=== PATIENT | male | born 1955 | race Caucasian/White ===

== ENCOUNTER 2017-01-16 19:45 | Inpatient (IN) | payer BC, OTHER ==
[2017-01-16] MEDS ORDERED: NITROGLYCERIN OINT 1 INCH/GM PACKET TOPICAL STA (19:51)
--- NOTE | 2017-01-16 19:55 | ED ---
General Adult HPI - General Stated complaint: Chest Pain Time Seen by Provider: 01/16/17 19:45 Source: RN notes reviewed - History of Present Illness Initial comments: This is a 61-year-old male who presents emergency Department complaining of having right-sided neck pain radiating down into his chest. Patient states he had this starting at 11:00 this morning. Patient states he was also short of breath very shaky and so weak that he couldn't get up by himself. Patient states he was given just ride it out but it continued to get worse so he had his friend call EMS. When EMS arrived the patient was somewhat cyanotic looking according to this EMS crew that brought him from [place]. He went to [place] had a workup done his troponin was elevated at 0.[address] his chest CT which was negative he was placed on heparin and brought to our emergency department. Patient states she's been chest pain-free ever since he got to [place] and he continues to be chest pain-free. Patient states she' s had episodes like this before but nothing this ever lasted nearly as long or nearly as strong as the pain was today. Patient denies any headache patient denies numbness weakness. Patient denies lightheadedness dizziness or near- syncopal episode. The recent fever chills or cough. Patient denies abdominal pain patient denies nausea or vomiting. - Related Data Home Medications Medication Instructions Recorded Confirmed Gabapentin [Neurontin] 100 mg PO HS 01/16/17 01/16/17 Tamsulosin [Flomax] 0.4 mg PO HS 01/16/17 01/16/17 Allergies Allergy/AdvReac Type Severity Reaction Status Date / Time No Known Allergies Allergy Verified 11/20/14 09:41 Review of Systems ROS Statement: Those systems with pertinent positive or pertinent negative responses have been documented in the HPI. ROS Other: All systems not noted in ROS Statement are negative. Past Medical History Past Medical History: Hyperlipidemia, Hypertension, Skin Disorder Additional Past Medical History / Comment(s): PT IS POOR HISTORIAN-PT STATES HAS SOME BLOCKAGES IN [place]. LEGS & RT NECK- STATES FEET ARE ALWAYS ICE COLD- RT GREAT TOE HAS HOLE -DRAINING WAS TOLD WAS A CALLUS & GIVEN CREAM- HELPED AT FIRST- RT FOOT SWOLLEN- HARD TO PUT SHOES ON. LOWER BACK PAIN ALSO. URINE FREQUENCY-UP 2-3 X A NIGHT. WAS ON 11 MEDICATIONS FRON IN [place]- BUT STOPPED USING THEM History of Any Multi-Drug Resistant Organisms: None Reported Past Surgical History: Tonsillectomy Additional Past Surgical History / Comment(s): ABDOMINAL SURGERY- REMOVED FISH BONE THAT HAD PUT HOLE IN STOMACH. REPAIR OF BLOCKAGES IN RT LEG 2011? Past Anesthesia/Blood Transfusion Reactions: No Reported Reaction Past Psychological History: No Psychological Hx Reported Smoking Status: Current every day smoker Past Alcohol Use History: None Reported Additional Past Alcohol Use History / Comment(s): NO ALCOHOL IN 20 YRS- USE TO BE A PROBLEM Past Drug Use History: None Reported - Past Family History Mother Family Medical History: Cancer Father Family Medical History: Myocardial Infarction ([place]) General Exam - General Exam Comments Initial Comments: GENERAL: Patient is well-developed and well-nourished. Patient is nontoxic and well- hydrated and is in no acute distress. ENT: Neck is soft and supple. No significant lymphadenopathy is noted. Oropharynx is clear. Moist mucous membranes. Neck has full range of motion without eliciting any pain. EYES: The sclera were anicteric and conjunctiva were pink and moist. Extraocular movements were intact and pupils were equal round and reactive to light. Eyelids were unremarkable. PULMONARY: Unlabored respirations. Good breath sounds bilaterally. No audible rales rhonchi or wheezing was noted. CARDIOVASCULAR: There is a regular rate and rhythm without any murmurs gallops or rubs. ABDOMEN: Soft and nontender with normal bowel sounds. No palpable organomegaly was noted. There is no palpable pulsatile mass. SKIN: Skin is clear with no lesions or rashes and otherwise unremarkable. NEUROLOGIC: Patient is alert and oriented x3. Cranial nerves II through XII are grossly intact. Motor and sensory are also intact. Normal speech, volume and content. Symmetrical smile. MUSCULOSKELETAL: Normal extremities with adequate strength and full range of motion. LYMPHATICS: No significant lymphadenopathy is noted PSYCHIATRIC: Normal psychiatric evaluation. Course Vital Signs 01/16/17 01/16/17 19:54 20:31 Temperature 98.2 F Pulse Rate 65 61 Respiratory 16 16 Rate Blood Pressure 142/85 135/83 O2 Sat by Pulse 98 98 Oximetry Medical Decision Making - Medical Decision Making EKG shows normal sinus rhythm at 65 bpm ND interval is 170 QRS is 126 QT intervals 4:30 QTC is 447. Patient's EKG shows Q waves in V1 24 as well as 2 and aVF. Patient has no old EKG to compare to Repeat troponin the patient was elevated above 5. Was at this point time I spoke with Dr. Kessler agreed that I should admit the patient and he will see the patient first thing in the morning unless the patient experiences some pain while in the hospital. Patient at this point time remains pain-free. I continued the heparin on the patient and admitted the patient to Dr. Bowser. Spoke with he agreed to accept the patient. - Lab Data Result diagrams: 01/16/17 20:30 01/16/17 20:30 Lab Results 01/16/17 01/16/17 01/16/17 Range/Units 20:30 20:30 20:30 WBC 7.1 (3.8-10.6) k/uL RBC 5.29 (4.30-5.90) m/uL Hgb 16.6 (13.0-17.5) gm/dL Hct 48.2 (39.0-53.0) % MCV 91.1 (80.0-100.0) fL MCH 31.4 (25.0-35.0) pg MCHC 34.5 (31.0-37.0) g/dL RDW 14.6 (11.5-15.5) % Plt Count 179 (150-450) k/uL Neutrophils % 56 % Lymphocytes % 33 % Monocytes % 7 % Eosinophils % 2 % Basophils % 1 % Neutrophils # 4.0 (1.3-7.7) k/uL Lymphocytes # 2.3 (1.0-4.8) k/uL Monocytes # 0.5 (0-1.0) k/uL Eosinophils # 0.1 (0-0.7) k/uL Basophils # 0.0 (0-0.2) k/uL PT (9.0-12.0) sec INR (<1.1) APTT (22.0-30.0) sec Sodium 139 (137-145) mmol/L Potassium 4.1 (3.5-5.1) mmol/L Chloride 103 (98-107) mmol/L Carbon Dioxide 26 (22-30) mmol/L Anion Gap 10 mmol/L BUN 21 H (9-20) mg/dL Creatinine 0.90 (0.66-1.25) mg/dL Est GFR (MDRD) Af Amer >60 (>60 ml/min/1.73 sqM) Est GFR (MDRD) Non-Af >60 (>60 ml/min/1.73 sqM) Glucose 85 (74-99) mg/dL Calcium 9.2 (8.4-10.2) mg/dL Magnesium 2.2 (1.6-2.3) mg/dL Total Bilirubin 1.1 (0.2-1.3) mg/dL AST 54 (17-59) U/L ALT 38 (21-72) U/L Alkaline Phosphatase 87 (38-126) U/L Total Creatine Kinase 270 H (55-170) U/L CK-MB (CK-2) 23.0 H* (0.0-2.4) ng/mL CK-MB (CK-2) Rel Index 8.5 Troponin I 5.780 H* (0.000-0.034) ng/mL Total Protein 7.1 (6.3-8.2) g/dL Albumin 4.2 (3.5-5.0) g/dL 01/16/17 Range/Units 20:30 WBC (3.8-10.6) k/uL RBC (4.30-5.90) m/uL Hgb (13.0-17.5) gm/dL Hct (39.0-53.0) % MCV (80.0-100.0) fL MCH (25.0-35.0) pg MCHC (31.0-37.0) g/dL RDW (11.5-15.5) % Plt Count (150-450) k/uL Neutrophils % % Lymphocytes % % Monocytes % % Eosinophils % % Basophils % % Neutrophils # (1.3-7.7) k/uL Lymphocytes # (1.0-4.8) k/uL Monocytes # (0-1.0) k/uL Eosinophils # (0-0.7) k/uL Basophils # (0-0.2) k/uL PT 10.8 (9.0-12.0) sec INR 1.1 (<1.1) APTT 33.3 H (22.0-30.0) sec Sodium (137-145) mmol/L Potassium (3.5-5.1) mmol/L Chloride (98-107) mmol/L Carbon Dioxide (22-30) mmol/L Anion Gap mmol/L BUN (9-20) mg/dL Creatinine (0.66-1.25) mg/dL Est GFR (MDRD) Af Amer (>60 ml/min/1.73 sqM) Est GFR (MDRD) Non-Af (>60 ml/min/1.73 sqM) Glucose (74-99) mg/dL Calcium (8.4-10.2) mg/dL Magnesium (1.6-2.3) mg/dL Total Bilirubin (0.2-1.3) mg/dL AST (17-59) U/L ALT (21-72) U/L Alkaline Phosphatase (38-126) U/L Total Creatine Kinase (55-170) U/L CK-MB (CK-2) (0.0-2.4) ng/mL CK-MB (CK-2) Rel Index Troponin I (0.000-0.034) ng/mL Total Protein (6.3-8.2) g/dL Albumin (3.5-5.0) g/dL Critical Care Time Critical Care Time: Yes Total Critical Care Time: 35 Disposition Clinical Impression: Non-STEMI (non-ST elevated myocardial infarction) Disposition: ADMITTED IP TO THIS [facility] Time of Disposition: 22:14
[2017-01-16 20:43] LABS: Basophils % (A) 1 %; CH 31.1; CHCM 34.3; Eosinophils # (A) 0.1 k/uL (0-0.7); Eosinophils % (A) 2 %; HCT 48.2 % (39.0-53.0); HDW 3.18; HGB 16.6 gm/dL (13.0-17.5); Luc # (Auto) 0.16; Luc % (Auto) 2; Lymphocytes # (A) 2.3 k/uL (1.0-4.8); Lymphocytes % (A) 33 %; MCH 31.4 pg (25.0-35.0); MCHC 34.5 g/dL (31.0-37.0); MCV 91.1 fL (80.0-100.0); Mean Platelet Volume 7.9; Monocytes # (A) 0.5 k/uL (0-1.0); Monocytes % (A) 7 %; Neutrophils % (A) 56 %; RBC 5.29 m/uL (4.30-5.90); RDW 14.6 % (11.5-15.5); WBC 7.1 k/uL (3.8-10.6); WBC (Perox) 6.98
[2017-01-16 20:51] LABS: INR 1.1 (<1.1); Partial Thromboplastin Time 33.3 sec (22.0-30.0); Prothrombin Time 10.8 sec (9.0-12.0)
[2017-01-16 20:56] LABS: ALT 38 U/L (21-72); AST 54 U/L (17-59); Alkaline Phosphatase 87 U/L (38-126); Anion Gap 10 mmol/L; Blood Urea Nitrogen 21 mg/dL (9-20); Calcium 9.2 mg/dL (8.4-10.2); Carbon Dioxide 26 mmol/L (22-30); Chloride 103 mmol/L (98-107); Glucose 85 mg/dL (74-99); Magnesium 2.2 mg/dL (1.6-2.3); Non-African American GFR(MDRD) >60 (>60 ml/min/1.73 sqM); Potassium 4.1 mmol/L (3.5-5.1); Sodium 139 mmol/L (137-145); Total Bilirubin 1.1 mg/dL (0.2-1.3); Total Protein 7.1 g/dL (6.3-8.2)
[2017-01-16] MEDS: HEPARIN SODIUM,PORCINE/D5W PMX 25,000 UNIT in DEXTROSE/WATER 1 500ML.BAG IV SCH (21:11)
[2017-01-16 21:25] LABS: Troponin I 5.78 ng/mL (0.000-0.034)
[2017-01-16] MEDS ORDERED: NITROGLYCERIN SL TABS 0.4 MG TAB SUBLINGUAL PRN (22:14)
[2017-01-16 23:26] VITALS: BMI 30.6
[2017-01-16] MEDS: NITROGLYCERIN OINT 1 INCH/GM PACKET TOPICAL SCH (23:39)
[2017-01-17 03:36] LABS: Creatine Kinase MB 21.5 ng/mL (0.0-2.4); Troponin I 5.73 ng/mL (0.000-0.034)
[2017-01-17] MEDS: HEPARIN SODIUM,PORCINE 5,000 UNIT/ML 1 ML VIAL IV PRN (03:36)
[2017-01-17] MEDS: NITROGLYCERIN OINT 1 INCH/GM PACKET TOPICAL SCH ×4 (05:56→23:01)
--- NOTE | 2017-01-17 09:12 | P.CRDCN ---
History of Present Illness Consult date: 01/17/17 Requesting physician: Na Bowser Consult reason: chest pain Chief complaint: Chest pain and shortness of breath History of present illness: This is a 61-year-old gentleman with history of hypertension, diabetes , hyperlipidemia, nicotine dependence, and strong family history of premature coronary artery disease, his father had a myocardial infarction at the age of 42 , diffuse vascular disease with prior vascular stenting, exact details unavailable, patient also has had a right carotid endarterectomy. Patient has a wound on the heel area of his right foot for which she has been going to the wound center. He was transferred here from [facility], patient was brought to [facility] by the EMS. Patient was complaining of anterior chest pressure and heaviness with radiation to his jaw and down his left arm, patient was weak, very diaphoretic and dusky in appearance. According to the patient everything was starting to go black, and he collapsed onto the floor. Blood pressure on arrival to [facility] was 134/96, heart rate 90, respirations 28, CT of the chest was performed which revealed a normal thoracic aorta with no dissection, mild noncalcific plaque, no PE. Sodium 136, potassium 3.7, chloride 101, CO2 22, BUN 24, creatinine 0.9. Magnesium level I.9, d-dimer normal troponin 0.32. White blood cell count 7.6, hemoglobin 17 0, hematocrit 49, platelet count 199. There is report of Daisha scan in the chart which was performed in 2014 reported to be normal. Initial EKG on presentation to [place] showed a normal sinus rhythm with ST-T wave changes. Patient was transferred here to [facility]. EKG on arrival here showed a normal sinus rhythm with evidence of anterior lateral infarction. White blood cell count 7.1, hemoglobin 16.6, platelet count 179. Potassium 4.1, BUN 21, creatinine 0.9. Troponin on arrival here 5.7, 5.7. Patient is currently on IV heparin, aspirin, and Nitropaste. At the time of my examination, he is currently chest pain-free. Blood pressure 142/80 with a heart rate in the 60s. 97% on 4 L oxygen. Past Medical History Past Medical History: CVA/TIA, Hyperlipidemia, Hypertension, Skin Disorder Additional Past Medical History / Comment(s): PT IS POOR HISTORIAN-PT STATES HAS SOME BLOCKAGES IN [place]. LEGS & RT NECK- STATES FEET ARE ALWAYS ICE COLD- RT GREAT TOE HAS HOLE -DRAINING WAS TOLD WAS A CALLUS & GIVEN CREAM- HELPED AT FIRST- RT FOOT SWOLLEN- HARD TO PUT SHOES ON. LOWER BACK PAIN ALSO. URINE FREQUENCY-UP 2-3 X A NIGHT. WAS ON 11 MEDICATIONS FRON IN [place]- BUT STOPPED USING THEM. PT also states he had a blockage removed from his carotid artery and that the hospital told him he had two strokes History of Any Multi-Drug Resistant Organisms: None Reported Past Surgical History: Tonsillectomy Additional Past Surgical History / Comment(s): ABDOMINAL SURGERY- REMOVED FISH BONE THAT HAD PUT HOLE IN STOMACH. REPAIR OF BLOCKAGES IN RT LEG 2011? Past Anesthesia/Blood Transfusion Reactions: No Reported Reaction Past Psychological History: No Psychological Hx Reported Smoking Status: Current every day smoker Past Alcohol Use History: None Reported Additional Past Alcohol Use History / Comment(s): NO ALCOHOL IN 20 YRS- USE TO BE A PROBLEM Past Drug Use History: None Reported - Past Family History Mother Family Medical History: Cancer Father Family Medical History: Myocardial Infarction ([place]) Medications and Allergies Home Medications Medication Instructions Recorded Confirmed Type Gabapentin [Neurontin] 100 mg PO HS 01/16/17 01/16/17 History Tamsulosin [Flomax] 0.4 mg PO HS 01/16/17 01/16/17 History Allergies Allergy/AdvReac Type Severity Reaction Status Date / Time No Known Allergies Allergy Verified 11/20/14 09:41 Physical Exam Vitals: Vital Signs Temp Pulse Pulse Resp BP BP Pulse Ox 01/17/17 04:00 97 F L 56 L 16 120/73 97 01/17/17 00:00 97 F L 67 18 134/81 97 01/16/17 22:50 61 16 136/63 98 Intake and Output 01/16/17 01/17/17 01/17/17 22:59 06:59 14:59 Intake Total 285 Output Total 500 Balance -215 Intake: IV 160 Heparin Sodium,Porcine/ 160 D5w Pmx 25,000 unit In Dextrose/Water 1 500ml. bag @ 9.382 UNITS/KG/HR 20 mls/hr IV .Q[facility]H [facility] Rx #:[id number] Intake, IV Titration 125 Amount Heparin Sodium,Porcine/ 125 D5w Pmx 25,000 unit In Dextrose/Water 1 500ml. bag @ 9.382 UNITS/KG/HR 20 mls/hr IV .Q24H [facility] Rx #:[id number] Output: Urine 500 Other: Weight 105.3 kg PHYSICAL EXAMINATION: HEENT: Head is atraumatic, normocephalic. Pupils equal, round. Neck is supple. There is no elevated jugular venous pressure. HEART EXAMINATION: Heart S1 and S2 normal no murmur or gallop heard. CHEST EXAMINATION: Lungs reveal scattered coarse rhonchi that clear with cough. ABDOMEN: Soft,, nontender. Bowel sounds are heard. No organomegaly noted. EXTREMITIES: Doppler to 1+ peripheral pulses with no evidence of peripheral edema and no calf tenderness noted. Ulcerated area noted on the right foot. NEUROLOGIC patient is awake, alert and oriented -3. . Results 01/16/17 20:30 01/16/17 20:30 Cardiac Enzymes 01/17/17 Range/Units 02:32 CK-MB (CK-2) 21.5 H* (0.0-2.4) ng/mL Troponin I 5.730 H* (0.000-0.034) ng/mL Coagulation 01/17/17 Range/Units 02:32 APTT 31.5 H (22.0-30.0) sec Current Medications Generic Name Dose Route Start Last Admin Trade Name Freq PRN Reason Stop Dose Admin Aspirin 325 mg 01/17/17 09:00 Aspirin PO DAILY [facility] Heparin Sodium (Porcine) 0 unit 01/17/17 03:27 01/17/17 03:36 Heparin IV 4,000 unit PER PROTOCOL PRN Administration Low PTT Protocol Heparin Sodium/Dextrose 25,000 500 mls @ 20 mls/hr 01/16/17 20:15 01/17/17 03 :26 unit/ IV Solution IV 12.38 units/kg/hr .Q24H [facility] 26.39 mls/hr Protocol Titration 9.382 UNITS/KG/HR Nitroglycerin 1 inch 01/17/17 00:00 01/17/17 05:56 Nitro-Bid Oint TOPICAL 1 inch Q6HR [facility] Administration Nitroglycerin 0.4 mg 01/16/17 22:14 Nitrostat SUBLINGUAL Q5M PRN Chest Pain Intake and Output 01/16/17 01/17/17 01/17/17 22:59 06:59 14:59 Intake Total 285 Output Total 500 Balance -215 Intake: IV 160 Heparin Sodium,Porcine/ 160 D5w Pmx 25,000 unit In Dextrose/Water 1 500ml. bag @ 9.382 UNITS/KG/HR 20 mls/hr IV .Q24H [facility] Rx #:[id number] Intake, IV Titration 125 Amount Heparin Sodium,Porcine/ 125 D5w Pmx 25,000 unit In Dextrose/Water 1 500ml. bag @ 9.382 UNITS/KG/HR 20 mls/hr IV .Q24H [facility] Rx #:[id number] Output: Urine 500 Other: Weight 105.3 kg EKG Interpretations (text) EKG shows a normal sinus rhythm with evidence of anterior lateral infarct. Assessment and Plan Plan: Assessment and plan #1 non-ST elevation myocardial infarction #2 hypertension, untreated #3 hyperlipidemia, untreated #4 diabetes, untreated #5 nicotine dependence #6 family history of premature coronary artery disease #7 PAD and PVD Plan We will continue IV heparin, continue aspirin and Nitropaste. Obtain echocardiogram with Doppler study. Continue to monitor for any arrhythmias. Replace potassium and magnesium. Initiate beta belen, as well as Lipitor 80 now and daily. Patient has been advised he may need to undergo cardiac catheterization, risks and the benefits were explained to the patient in detail. Further recommendations to follow. DNP note has been reviewed, I agree with a documented findings and plan of care. Patient was seen and examined.
[2017-01-17] MEDS: METOPROLOL TARTRATE 12.5 MG TAB PO SCH ×2 (10:32→20:30)
[2017-01-17] MEDS: ASPIRIN 325 MG TAB PO SCH (10:32)
[2017-01-17] MEDS: ATORVASTATIN 80 MG TAB PO SCH (10:32)
[2017-01-17 11:06] LABS: Creatine Kinase MB 15.8 ng/mL (0.0-2.4); Troponin I 3.55 ng/mL (0.000-0.034)
[2017-01-17 11:10] LABS: Cholesterol 229 mg/dL (<200); HDL Cholesterol 44 mg/dL (40-60); Triglycerides 121 mg/dL (<150)
--- NOTE | 2017-01-17 12:36 | ECHOF ---
Referral Reason:chest pain MEASUREMENTS -------- HEIGHT: 182.9 cm WEIGHT: 105.2 kg BP: 130/60 RVIDd: 3.2 cm (< 3.3) IVSd: 1.3 cm (0.6 - 1.1) LVIDd: 6.9 cm (3.9 - 5.3) LVPWd: 1.4 cm (0.6 - 1.1) IVSs: 1.7 cm LVIDs: 5.7 cm LVPWs: 1.6 cm LA Diam: 4.9 cm (2.7 - 3.8) LAESV Index (A-L): 32.96 ml/m Ao Diam: 3.1 cm (2.0 - 3.7) AV Cusp: 1.6 cm (1.5 - 2.6) LA Diam: 5.2 cm (2.7 - 3.8) MV EXCURSION: 17.332 mm (> 18.000) MV EF SLOPE: 75 mm/s (70 - 150) EPSS: 1.7 cm MV E Rob: 0.82 m/s MV DecT: 198 ms MV A Rob: 0.52 m/s MV E/A Ratio: 1.57 RAP: 5.00 mmHg RVSP: 27.98 mmHg FINDINGS -------- Sinus rhythm. This was a techncally difficult study with suboptimal views, , Definity utilized for enhancement of images. Left ventricular wall thickness is normal. There is severe global hypokinesis of LV . Overall left ventricular systolic function is severely impaired with, an EF < 20%. only basal inflateral wall is marah The right ventricle is normal in size. LA is moderately dilated 34-39 ml/m2 The right atrial size is normal. 1.5MG OF DEFINITY UTLIZED: 2 OR MORE WALL SEGMENTS NOT VISUALIZED. There is mild aortic valve sclerosis. There is no evidence of aortic regurgitation. Mild mitral annular calcification present. Mild mitral regurgitation is present. Mild tricuspid regurgitation present. There is no evidence of pulmonary hypertension. The right ventricular systolic pressure, as measured by Doppler, is 27.98mmHg. There is no pulmonic regurgitation present. The aortic root size is normal. There is no pericardial effusion. Definity used to r/o any clots in the heart. CONCLUSIONS -------- 1. This was a techncally difficult study with suboptimal views, , Definity utilized for enhancement of images. 2. Mild mitral regurgitation is present. 3. Mild tricuspid regurgitation present. 4. There is no evidence of pulmonary hypertension. 5. The right ventricular systolic pressure, as measured by Doppler, is 27.98mmHg. 6. Definity used to r/o any clots in the heart. 7. Left ventricular wall thickness is normal. 8. There is severe global hypokinesis of LV . 9. Overall left ventricular systolic function is severely impaired with, an EF < 20%. 10. only basal inflateral wall is marah 11. LA is moderately dilated 34-39 ml/m2 12. 1.5MG OF DEFINITY UTLIZED: 2 OR MORE WALL SEGMENTS NOT VISUALIZED. 13. There is mild aortic valve sclerosis. 14. Mild mitral annular calcification present. ABRASIVE BAND WINDER: Salima Gibson RDCS
--- NOTE | 2017-01-17 16:47 | P.HPIM ---
History of Present Illness H&P Date: 01/17/17 Chief Complaint: Dyspnea on exertion and chest pain 61-year-old gentleman with history of PAD comes in the hospital with exertional dyspnea and chest pressure comes into the hospital from [facility]. Patient does have a significant history of PAD, carotid disease status post carotid endarterectomy and strong history of premature heart disease. Patient probably was told he has a weak heart and [facility]. Patient was transferred to the hospital after his noted to be weak sightly diaphoretic and dusky in color. He almost apparently collapsed. At the time of my evaluation patient states he is feeling significantly better states that his symptoms of exertional dyspnea chest pressure has been progressively getting worse over the last few weeks. Patient is anxious and states that he always gets running around with the goal and obtaining multiple tests and he never understands why it's being done. Patient was smoking until a day prior to admission. EKG reveals sinus rhythm with some changes in the anterolateral segments. Patient does have a troponin leak. Currently patient denies having headaches, blurry vision, nausea, chest pain, difficulty breathing, abdominal pain, vomiting or diarrhea. Review of Systems All systems: negative (Noted on HPI) Past Medical History Past Medical History: CVA/TIA, Hyperlipidemia, Hypertension, Skin Disorder Additional Past Medical History / Comment(s): PT IS POOR HISTORIAN-PT STATES HAS SOME BLOCKAGES IN [place]. LEGS & RT NECK- STATES FEET ARE ALWAYS ICE COLD- RT GREAT TOE HAS HOLE -DRAINING WAS TOLD WAS A CALLUS & GIVEN CREAM- HELPED AT FIRST- RT FOOT SWOLLEN- HARD TO PUT SHOES ON. LOWER BACK PAIN ALSO. URINE FREQUENCY-UP 2-3 X A NIGHT. WAS ON 11 MEDICATIONS FRON IN [place]- BUT STOPPED USING THEM. PT also states he had a blockage removed from his carotid artery and that the hospital told him he had two strokes History of Any Multi-Drug Resistant Organisms: None Reported Past Surgical History: Tonsillectomy Additional Past Surgical History / Comment(s): ABDOMINAL SURGERY- REMOVED FISH BONE THAT HAD PUT HOLE IN STOMACH. REPAIR OF BLOCKAGES IN RT LEG 2011? Past Anesthesia/Blood Transfusion Reactions: No Reported Reaction Past Psychological History: No Psychological Hx Reported Smoking Status: Current every day smoker Past Alcohol Use History: None Reported Additional Past Alcohol Use History / Comment(s): NO ALCOHOL IN 20 YRS- USE TO BE A PROBLEM Past Drug Use History: None Reported - Past Family History Mother Family Medical History: Cancer Father Family Medical History: Myocardial Infarction ([place]) Medications and Allergies Home Medications Medication Instructions Recorded Confirmed Type Gabapentin [Neurontin] 100 mg PO HS 01/16/17 01/16/17 History Tamsulosin [Flomax] 0.4 mg PO HS 01/16/17 01/16/17 History Allergies Allergy/AdvReac Type Severity Reaction Status Date / Time No Known Allergies Allergy Verified 11/20/14 09:41 Physical Exam Vitals: Vital Signs Temp Pulse Pulse Resp BP BP Pulse Ox 01/17/17 11:44 97.2 F L 66 18 122/69 95 01/17/17 10:25 62 136/76 01/17/17 08:00 97.4 F L 63 18 142/88 97 01/17/17 04:00 97 F L 56 L 16 120/73 97 01/17/17 00:00 97 F L 67 18 134/81 97 01/16/17 22:50 61 16 136/63 98 Intake and Output 01/17/17 01/17/17 01/17/17 06:59 14:59 22:59 Intake Total 285 Output Total 500 Balance -215 Intake: IV 160 Heparin Sodium,Porcine/ 160 D5w Pmx 25,000 unit In Dextrose/Water 1 500ml. bag @ 9.382 UNITS/KG/HR 20 mls/hr IV .Q24H [facility] Rx #:[id number] Intake, IV Titration 125 Amount Heparin Sodium,Porcine/ 125 D5w Pmx 25,000 unit In Dextrose/Water 1 500ml. bag @ 9.382 UNITS/KG/HR 20 mls/hr IV .Q24H [facility] Rx #:[id number] Output: Urine 500 Other: Weight 105.3 kg Physical exam Gen. appearance oriented 3 in no distress Neck is supple no JVD Lungs good air entry clear to auscultation no rhonchi or wheezing Heart S1-S2 heard regular rate and rhythm no murmurs appreciated Abdomen is soft nontender no organomegaly bowel sounds are intact Neurologically cranial nerves II-12 grossly intact no focal motor or sensory deficits noted Skin no abnormalities appreciated Results CBC & Chem 7: 01/16/17 20:30 01/16/17 20:30 Labs: Abnormal Lab Results - Last 24 Hours (Table) 01/17/17 01/17/17 01/17/17 Range/Units 02:32 02:32 09:30 APTT 31.5 H (22.0-30.0) sec Total Creatine Kinase 245 H 188 H (55-170) U/L CK-MB (CK-2) 21.5 H* 15.8 H* (0.0-2.4) ng/mL Troponin I 5.730 H* 3.550 H* (0.000-0.034) ng/mL Cholesterol (<200) mg/dL LDL Cholesterol, Calc (0-99) mg/dL 01/17/17 01/17/17 Range/Units 09:30 09:30 APTT 49.7 H (22.0-30.0) sec Total Creatine Kinase (55-170) U/L CK-MB (CK-2) (0.0-2.4) ng/mL Troponin I (0.000-0.034) ng/mL Cholesterol 229 H (<200) mg/dL LDL Cholesterol, Calc 161 H (0-99) mg/dL Thrombosis Risk Factor Assmnt - Choose All That Apply Each Factor Represents 1 point: Obesity (BMI >25) Each Risk Factor Represents 2 Points: Age 61-74 years Thrombosis Risk Factor Assessment Total Risk Factor Score: 3 Thrombosis Risk Factor Assessment Level: Moderate Risk Assessment and Plan Plan: Non-ST elevation myocardial infarction. 5 PAD. Recent carotid endarterectomy on the light side. Ongoing tobacco use Hypertension that is untreated Dyslipidemia Plan Patient is continue on heparin patient should likely undergo a cardiac catheterization at this time. started on antihypertensives. Smoking cessation is recommended Continued trending troponins. Patient is evaluated by the cardiology team. Echocardiogram shows diffuse wall motion abnormalities. Aspirin and statin to continue.
[2017-01-17] MEDS: GABAPENTIN 100 MG CAP PO SCH (20:30)
[2017-01-17] MEDS: TAMSULOSIN 0.4 MG CAP.ER.24H PO SCH (20:31)
[2017-01-17] MEDS: HEPARIN SODIUM,PORCINE/D5W PMX 25,000 UNIT in DEXTROSE/WATER 1 500ML.BAG IV SCH (20:35)
[2017-01-18] MEDS: NITROGLYCERIN OINT 1 INCH/GM PACKET TOPICAL SCH ×2 (05:41→12:30)
[2017-01-18] MEDS: HEPARIN SODIUM,PORCINE 5,000 UNIT/ML 1 ML VIAL IV PRN (07:33)
[2017-01-18] MEDS: ASPIRIN 325 MG TAB PO SCH (09:53)
[2017-01-18] MEDS: ATORVASTATIN 80 MG TAB PO SCH (09:53)
[2017-01-18] MEDS: METOPROLOL TARTRATE 12.5 MG TAB PO SCH (09:54)
[2017-01-18] MEDS ORDERED: ALPRAZolam 0.25 MG TAB PO PRN (10:44)
[2017-01-18] MEDS ORDERED: ASPIRIN 325 MG TAB PO STA (10:44)
[2017-01-18] MEDS ORDERED: NITROGLYCERIN SL TABS 0.4 MG TAB SUBLINGUAL PRN ×2 (10:44→19:18)
[2017-01-18] MEDS ORDERED: SODIUM CHLORIDE 0.9% 1,000 ML in EMPTY BAG 1 BAG IV ONE (10:44)
[2017-01-18] MEDS ORDERED: ATORVASTATIN 80 MG TAB PO STA (10:44)
[2017-01-18] MEDS ORDERED: ALPRAZolam 0.5 MG TAB PO PRN (10:44)
[2017-01-18] MEDS: SODIUM CHLORIDE 0.9% 1,000 ML IV SCH (10:55)
[2017-01-18 12:35] LABS: Glucose,Whole Blood 101 mg/dL (75-99)
--- NOTE | 2017-01-18 15:01 | P.PN ---
Subjective Principal diagnosis: Non-Q-wave [place] This is a 61-year-old gentleman with history of hypertension, diabetes , hyperlipidemia, nicotine dependence, and strong family history of premature coronary artery disease, his father had a myocardial infarction at the age of 42 , diffuse vascular disease with prior vascular stenting, exact details unavailable, patient also has had a right carotid endarterectomy. Patient has a wound on the heel area of his right foot for which she has been going to the wound center. He was transferred here from [facility], patient was brought to [facility] by the EMS. Patient was complaining of anterior chest pressure and heaviness with radiation to his jaw and down his left arm, patient was weak, very diaphoretic and dusky in appearance. According to the patient everything was starting to go black, and he collapsed onto the floor. Patient ruled in for a non-Q-wave myocardial infarction. He was seen in consultation yesterday by Dr. David Kessler, seen in follow-up today and advised to undergo cardiac catheterization. The risks and benefits were explained in detail to the patient. This will be performed later today by Dr. David Kessler. Objective - Vital Signs Vital signs: Vital Signs Temp 97.7 F 01/18/17 12:00 Pulse 62 01/18/17 12:00 Resp 18 01/18/17 12:00 BP 138/76 01/18/17 12:00 Pulse Ox 95 01/18/17 12:00 Intake & Output 01/17/17 01/18/17 01/18/17 18:59 06:59 18:59 Intake Total 493 400 497.85 Output Total 450 Balance 493 -50 497.85 Weight 105.4 kg Intake: IV 400 208 Heparin Sodium,Porcine/ 400 128 D5w Pmx 25,000 unit In Dextrose/Water 1 500ml. bag @ 9.382 UNITS/KG/HR 20 mls/hr IV .Q24H [facility] Rx #:[id number] Sodium Chloride 0.9% 1, 80 000 ml @ 20 mls/hr IV . Q24H [facility] Rx#:[id number] Intake, IV Titration 375 289.85 Amount Heparin Sodium,Porcine/ 375 289.85 D5w Pmx 25,000 unit In Dextrose/Water 1 500ml. bag @ 9.382 UNITS/KG/HR 20 mls/hr IV .Q24H [facility] Rx #:[id number] Oral 118 0 Output: Urine 450 Other: Voiding Method Toilet Urinal # Voids 2 # Bowel Movements 1 - Exam PHYSICAL EXAMINATION: HEENT: Head is atraumatic, normocephalic. Pupils equal, round. Neck is supple. There is no elevated jugular venous pressure. HEART EXAMINATION: Heart S1 and S2 normal no murmur or gallop heard. CHEST EXAMINATION: Lungs reveal scattered coarse rhonchi that clear with cough. ABDOMEN: Soft,, nontender. Bowel sounds are heard. No organomegaly noted. EXTREMITIES: Doppler to 1+ peripheral pulses with no evidence of peripheral edema and no calf tenderness noted. Ulcerated area noted on the right foot. NEUROLOGIC patient is awake, alert and oriented -3. - Labs CBC & Chem 7: 01/16/17 20:30 01/16/17 20:30 Labs: Abnormal Lab Results - Last 24 Hours (Table) 01/18/17 01/18/17 Range/Units 05:57 12:31 APTT 37.5 H (22.0-30.0) sec POC Glucose (mg/dL) 101 H (75-99) mg/dL Assessment and Plan Plan: Assessment and plan #1 non-ST elevation myocardial infarction #2 hypertension, untreated #3 hyperlipidemia, untreated #4 diabetes, untreated #5 nicotine dependence #6 family history of premature coronary artery disease #7 PAD and PVD Plan Patient has been advised to undergo cardiac catheterization for more definitive diagnosis, the risks and benefits were explained to the patient in detail by Dr. David Kessler. This will be performed later today. Further recommendations will be based on these findings and the patient's clinical course. DNP note has been reviewed, I agree with a documented findings and plan of care. Patient was seen and examined.
[2017-01-18 15:40] LABS: Anion Gap 10 mmol/L; Blood Urea Nitrogen 18 mg/dL (9-20); Calcium 9.4 mg/dL (8.4-10.2); Carbon Dioxide 25 mmol/L (22-30); Chloride 105 mmol/L (98-107); Glucose 98 mg/dL (74-99); Non-African American GFR(MDRD) >60 (>60 ml/min/1.73 sqM); Potassium 4.8 mmol/L (3.5-5.1); Sodium 140 mmol/L (137-145)
--- NOTE | 2017-01-18 15:53 | P.PN ---
Subjective This is a 61-year-old gentleman with significant vascular abnormalities including PAD, carotid disease status post a right-sided carotid endarterectomy comes in to the hospital with the a non-Q-wave elevation myocardial infarction. Patient apparently was noted to have a weak heart on a prior evaluation at another facility. Patient today states that he does not have any headaches, blurry vision, nausea , vomiting, diarrhea. Patient however is adamant that he undergo his cardiac catheterization today. Objective - Vital Signs Vital signs: Vital Signs Temp 97.1 F L 01/18/17 15:21 Pulse 77 01/18/17 15:21 Resp 16 01/18/17 15:21 BP 171/84 01/18/17 15:21 Pulse Ox 97 01/18/17 15:21 Intake & Output 01/17/17 01/18/17 01/18/17 18:59 06:59 18:59 Intake Total 493 400 497.85 Output Total 450 Balance 493 -50 497.85 Weight 105.4 kg Intake: IV 400 208 Heparin Sodium,Porcine/ 400 128 D5w Pmx 25,000 unit In Dextrose/Water 1 500ml. bag @ 9.382 UNITS/KG/HR 20 mls/hr IV .Q24H [facility] Rx #:[id number] Sodium Chloride 0.9% 1, 80 000 ml @ 20 mls/hr IV . Q24H [facility] Rx#:[id number] Intake, IV Titration 375 289.85 Amount Heparin Sodium,Porcine/ 375 289.85 D5w Pmx 25,000 unit In Dextrose/Water 1 500ml. bag @ 9.382 UNITS/KG/HR 20 mls/hr IV .Q24H [facility] Rx #:[id number] Oral 118 0 Output: Urine 450 Other: Voiding Method Toilet Urinal # Voids 2 # Bowel Movements 1 - Exam Physical exam Gen. appearance oriented 3 in no distress Neck is supple no JVD Lungs good air entry clear to auscultation no rhonchi or wheezing Heart S1-S2 heard regular rate and rhythm no murmurs appreciated Abdomen is soft nontender no organomegaly bowel sounds are intact Neurologically cranial nerves II-12 grossly intact no focal motor or sensory deficits noted Skin healing ulcer on the right great toe on the dorsal surface - Labs CBC & Chem 7: 01/16/17 20:30 01/18/17 15:14 Labs: Abnormal Lab Results - Last 24 Hours (Table) 01/18/17 01/18/17 Range/Units 05:57 12:31 APTT 37.5 H (22.0-30.0) sec POC Glucose (mg/dL) 101 H (75-99) mg/dL Assessment and Plan Plan: Non-ST elevation myocardial infarction. PAD. Recent carotid endarterectomy on the right side. Ongoing tobacco use Hypertension that is untreated Dyslipidemia Healing right foot arterial ulcer that was present on admission Plan Patient is to undergo a cardiac catheterization today. Patient is evaluated by the cardiology team. Echocardiogram shows diffuse wall motion abnormalities. Aspirin and statin to continue.
[2017-01-18] MEDS ORDERED: MIDAZOLAM 2 MG/2 ML VIAL ONE (17:40)
[2017-01-18] MEDS ORDERED: diphenhydrAMINE 50 MG/ML 1 ML VIAL ONE (17:40)
[2017-01-18] MEDS ORDERED: NITROGLYCERIN SL TABS 0.4 MG TAB SUBLINGUAL ONE (17:44)
[2017-01-18] MEDS ORDERED: VERAPAMIL 2.5 MG/ML 2 ML AMP ONE (17:49)
[2017-01-18] MEDS ORDERED: MIDAZOLAM 2 MG/2 ML VIAL IV ONE (17:50)
[2017-01-18] MEDS ORDERED: diphenhydrAMINE 50 MG/ML 1 ML VIAL IVP ONE (17:50)
[2017-01-18] MEDS ORDERED: LIDOCAINE 2% INJ 20 MG/ML SQ ONE (17:52)
[2017-01-18] MEDS ORDERED: HEPARIN SODIUM 1,000 UNIT/ML VIAL ONE (18:01)
[2017-01-18] MEDS ORDERED: VERAPAMIL SYRINGE (5 MG/10 ML) INTRAARTER ONE (18:03)
[2017-01-18] MEDS ORDERED: SODIUM CHLORIDE 0.9% 1,000 ML IV ONE (18:03)
[2017-01-18] MEDS ORDERED: HEPARIN SODIUM 1,000 UNIT/ML VIAL IV ONE (18:03)
[2017-01-18] MEDS ORDERED: BIVALIRUDIN 250 MG in SODIUM CHLORIDE 0.9% 50 ML IV ONE ×2 (18:17→18:51)
[2017-01-18] MEDS ORDERED: BIVALIRUDIN BOLUS 250 MG/50 ML IV ONE (18:17)
[2017-01-18] MEDS ORDERED: FUROSEMIDE 10 MG/ML 4 ML VIAL ONE ×2 (18:18→19:11)
[2017-01-18] MEDS ORDERED: FUROSEMIDE 10 MG/ML 4 ML VIAL IV ONE ×2 (18:20→19:15)
[2017-01-18] MEDS ORDERED: fentaNYL (PF) 50 MCG/ML 2 ML AMP ONE (18:30)
[2017-01-18] MEDS ORDERED: fentaNYL (PF) 50 MCG/ML 2 ML AMP IV ONE (18:31)
[2017-01-18] MEDS ORDERED: NITROGLYCERIN 1000MCG/10ML SYRINGE INTRACORON ONE (19:01)
[2017-01-18] MEDS ORDERED: IOHEXOL 350 MG/ML 100 ML BOTTLE INTRATHECA ONE (19:03)
[2017-01-18] MEDS ORDERED: CLOPIDOGREL 75 MG TAB ONE (19:06)
[2017-01-18] MEDS ORDERED: LIDOCAINE 2% INJ 20 MG/ML (20 ML MDV) ONE (19:11)
[2017-01-18] MEDS ORDERED: CLOPIDOGREL 75 MG TAB PO ONE (19:15)
[2017-01-18] MEDS ORDERED: MAG HYDROX/AL HYDROX/SIMETH 30 ML CUP PO PRN (19:18)
[2017-01-18] MEDS ORDERED: ATROPINE SULFATE 0.1 MG/ML 10ML SYRINGE IV PRN (19:18)
[2017-01-18] MEDS ORDERED: RX INFO: IV CONTRAST WAS GIVEN 1 EACH MISC MISCELLANE PRN (19:18)
[2017-01-18] MEDS ORDERED: ZOLPIDEM 5 MG TAB PO PRN (19:18)
[2017-01-18] MEDS ORDERED: SODIUM CHLORIDE 0.9% 1,000 ML IV SCH (19:30)
[2017-01-18 21:18] LABS: Glucose,Whole Blood 205 mg/dL (75-99)
[2017-01-18] MEDS: TAMSULOSIN 0.4 MG CAP.ER.24H PO SCH (22:55)
[2017-01-18] MEDS: LOSARTAN 50 MG TAB PO SCH (22:55)
[2017-01-18] MEDS: GABAPENTIN 100 MG CAP PO SCH (22:55)
[2017-01-19 00:33] VITALS: RESP 18
[2017-01-19 03:14] VITALS: TEMP 97.8
--- NOTE | 2017-01-19 06:03 | CC ---
DATE OF SERVICE: 01/18/2017 PROCEDURE: Left heart catheterization and coronary angiography. PERFORMED BY: Dr. Jolene Kessler. CLINICAL INFORMATION: Mr. Gerardo Means is a 61-year-old gentleman who was transferred here from [facility]. He presented with shortness of breath and chest discomfort and had a non-ST elevation OH. Echo revealed ejection fraction of 20% or so with a global decrease in contractility. This patient has history of carotid endarterectomy, peripheral vascular disease and has not been very compliant following with his physicians on a regular basis. Because of [id number] OH and LV dysfunction and EKG changes suggestive of multiple prior myocardial infarctions, he was advised coronary angiography. Risks, benefits, options, rationale were explained. PROCEDURE NOTE: Under local anesthesia and strict aseptic precautions, a 6 Nepali introducer was placed in the right radial artery. I used an Ultimate 1 catheter to perform selective coronary angiography of the left system and I used a 3.5 curved diagnostic catheter for the right coronary artery. I used the same right coronary catheter to check the pressures in the LV, but I did not perform LV gram. I then proceeded to perform intervention of the RCA. CARDIAC CATHETERIZATION FINDINGS: The left ventricular end-diastolic pressure was 26 to 27 mmHg without any gradient across the aortic valve. The patient received Lasix following the LV pressure assessment. CORONARY ANGIOGRAPHY FINDINGS: RIGHT CORONARY ARTERY: A very dominant vessel, has a long lesion in the proximal segment of anywhere from 70% to 80%, very proximally a conus branch comes off then there is an acute marginal branch comes off between the 2 there is a long area of 80% disease. Beyond it also there is a plaque with calcification. The vessel then continues distally, has about a 40% distal lesion bifurcates into PDA and PLV. PDA is larger. PLV is smaller. Both have mildly diffuse disease. Dominant RCA long 80% proximal lesion. LEFT MAIN CORONARY ARTERY: This is a short, patent, disease-free vessel that bifurcates into LAD and circumflex. Left main itself is free of significant disease and is short. LEFT ANTERIOR DESCENDING CORONARY ARTERY: This vessel is totally occluded and is seen as a stump, There is a small branch that comes off looks like a septal branch, and then the vessel is totally occluded, seen as a stump. This appears to be a chronic occlusion. LEFT POSTERIOR CIRCUMFLEX CORONARY ARTERY: Technically a nondominant vessel yet large caliber, large distribution, gives off a first obtuse marginal has a 30% narrowing and the second obtuse marginal has minor irregularities. No significant disease and then the vessel runs in the AV groove, has minor diffuse irregularities. The entire circumflex system is free of significant disease, but has about a 30% to 40% plaque throughout. LEFT VENTRICULOGRAM: This was not performed. FINAL IMPRESSION: This patient has significantly elevated end-diastolic pressure suggestive of heart failure. There is evidence of 80% long lesion in the proximal right coronary artery. Left anterior descending artery is totally occluded in the proximal portion after a small septal branch. Circumflex is noncritical plaque throughout in a fair caliber, fair distribution vessel. Left ventriculogram was not performed. RECOMMENDATIONS: I recommend intervention of the RCA. I explained to the patient that this is a high-risk procedure and performed it in same setting.
[2017-01-19 06:05] LABS: Glucose,Whole Blood 119 mg/dL (75-99)
--- NOTE | 2017-01-19 06:14 | PTCA ---
DATE OF SERVICE: 01/18/2017 PROCEDURE: PTCA and stenting of proximal RCA. PERFORMED BY: Dr. Jolene Kessler. CLINICAL INFORMATION: : Mr. Gerardo Means is a 61-year-old gentleman who was transferred here from [facility]. He presented with shortness of breath and chest discomfort and had a non-ST elevation UT. Echo revealed ejection fraction of 20% or so with a global decrease in contractility. This patient has history of carotid endarterectomy, peripheral vascular disease and has not been very compliant following with his physicians on a regular basis. Because of [id number] UT and LV dysfunction and EKG changes suggestive of multiple prior myocardial infarctions, he was advised coronary angiography. Risks, benefits, options, rationale were explained. Following coronary angiography, I recommended intervention of the RCA and proceeded to perform this in the same setting. PROCEDURE NOTE: Following coronary angiography, I proceeded to perform intervention. Initially I used a standard right Earle catheter but I had difficulty getting a secure guide support. I switched over to an ART 3.5 and with this I was able to get better guide support. A J-tipped whisper wire was used to cross the lesion, wire was kept distally. There was some plaque noted right after the acute marginal branch where the lesion seemed to prolong. I used a 2.5 caliber, 20 mm long balloon and predilated the RCA lesion between the acute marginal and the conus branch. Acute marginal branch was of a fair caliber, but had significant disease at its ostium. I noted that after I gave the inflations beyond the acute marginal branch there was almost a subtotal occlusion with a very calcified plaque. This was addressed with an additional inflation. I then deployed two 2.75 caliber Xience drug-eluting stents. The distal was a 12 mm long, 2.75 caliber, proximal was 15 mm long, 2.75 caliber. Both stents were deployed at ( ) to 14 atmospheres. Excellent angiographic result was achieved. Distal to the second stent beyond the acute marginal there was still a hazy area with calcification and a 70% stenosis. I predilated this with a 2.5 balloon and went ahead and deployed a 2.5 caliber, 12 mm Xience stent with excellent angiographic result. The acute marginal that was highly diseased at its ostium, however, was totally occluded. Overall an excellent angiographic result without complication was achieved. The small side branch, which is a highly diseased, acute marginal branch was totally occluded. Distal branches of the RCA had some disease and distally before bifurcation also there was what seems to be a about a 40% narrowing as well. However, this was not addressed. Flow was excellent. Patient did not have significant symptoms of chest pain and EKG did not reveal any new findings. Excellent angiographic result was noted with occlusion of a small side branch that was highly diseased. The patient received 600 mg of Plavix. He received Angiomax bolus and infusion as per protocol. The sheath was taken out and TR band applied as per protocol. Good hemostasis was secured and the saturation of the fingers of the right hand was excellent. Results were discussed with the patient. There was no family available. He was sent to the room in stable condition. For the entire procedure, I used conscious sedation with Versed, Benadryl and Dilaudid and the total duration of conscious sedation was about 1 hour. The patient was monitored closely.
[2017-01-19 06:37] LABS: Basophils % (A) 0 %; CHCM 33.8; Eosinophils # (A) 0.1 k/uL (0-0.7); Eosinophils % (A) 2 %; HCT 49.6 % (39.0-53.0); HGB 16.3 gm/dL (13.0-17.5); Luc % (Auto) 2; Lymphocytes # (A) 0.8 k/uL (1.0-4.8); Lymphocytes % (A) 13 %; MCH 31.2 pg (25.0-35.0); MCHC 32.9 g/dL (31.0-37.0); Mean Platelet Volume 7.9; Monocytes # (A) 0.4 k/uL (0-1.0); Monocytes % (A) 6 %; Neutrophils # (A) 4.8 k/uL (1.3-7.7); Neutrophils % (A) 77 %; RBC 5.22 m/uL (4.30-5.90); WBC 6.3 k/uL (3.8-10.6)
[2017-01-19 06:56] LABS: Anion Gap 10 mmol/L; Blood Urea Nitrogen 21 mg/dL (9-20); Calcium 9.6 mg/dL (8.4-10.2); Carbon Dioxide 28 mmol/L (22-30); Chloride 100 mmol/L (98-107); Glucose 113 mg/dL (74-99); Non-African American GFR(MDRD) >60 (>60 ml/min/1.73 sqM); Potassium 4.6 mmol/L (3.5-5.1); Sodium 138 mmol/L (137-145)
[2017-01-19] MEDS ORDERED: CARVEDILOL 6.25 MG TAB PO SCH (07:30)
[2017-01-19] MEDS: LOSARTAN 50 MG TAB PO SCH (08:41)
[2017-01-19] MEDS: ATORVASTATIN 80 MG TAB PO SCH (08:41)
[2017-01-19] MEDS ORDERED: FUROSEMIDE 40 MG TAB PO SCH (09:00)
[2017-01-19] MEDS ORDERED: CLOPIDOGREL 75 MG TAB PO SCH (09:00)
[2017-01-19] MEDS ORDERED: ASPIRIN 81 MG CHEW PO SCH (09:00)
[2017-01-19] MEDS ORDERED: SPIRONOLACTONE 25 MG TAB PO SCH (09:00)
[2017-01-19] MEDS: SODIUM CHLORIDE 0.9% 1,000 ML IV SCH (12:17)
[2017-01-19 13:15] VITALS: BP 115/67; PULSE 60
--- NOTE | 2017-01-19 14:49 | P.PN ---
Subjective Principal diagnosis: Non-Q-wave ME This is a 61-year-old gentleman with history of hypertension, diabetes , hyperlipidemia, nicotine dependence, and strong family history of premature coronary artery disease, his father had a myocardial infarction at the age of 42 , diffuse vascular disease with prior vascular stenting, exact details unavailable, patient also has had a right carotid endarterectomy. He presented to the hospital with a non-Q-wave myocardial infarction. Echocardiogram with Doppler study was performed which revealed an ejection fraction of 20%, only the basal inferior wall was marah. He was taken to the cardiac catheterization lab yesterday by Dr. David Kessler, patient was found to have evidence of an 80% lesion in the proximal RCA, LAD was totally occluded in the proximal portion after the septal branch, circumflex has a non-critical plaque throughout. He underwent angioplasty with stenting of the RCA. Patient was seen and examined this morning, denies any chest pain or difficulty in breathing. CBC normal. Creatinine 0.9. Lipid pressure 115/60 with a heart rate in the 80s. Objective - Vital Signs Vital signs: Vital Signs Temp 97.8 F 01/19/17 03:49 Pulse 60 01/19/17 12:00 Resp 18 01/19/17 03:49 BP 115/67 01/19/17 12:00 Pulse Ox 98 01/19/17 03:49 Intake & Output 01/18/17 01/19/17 01/19/17 18:59 06:59 18:59 Intake Total 865.65 600 480 Output Total 300 4500 Balance 565.65 -3900 480 Weight 102.5 kg Intake: IV 575.8 Heparin Sodium,Porcine/ 128 D5w Pmx 25,000 unit In Dextrose/Water 1 500ml. bag @ 9.382 UNITS/KG/HR 20 mls/hr IV .Q24H [facility] Rx #:[id number] Sodium Chloride 0.9% 1, 80 000 ml @ 20 mls/hr IV . Q24H [facility] Rx#:[id number] Intake, IV Titration 289.85 Amount Heparin Sodium,Porcine/ 289.85 D5w Pmx 25,000 unit In Dextrose/Water 1 500ml. bag @ 9.382 UNITS/KG/HR 20 mls/hr IV .Q24H [facility] Rx #:[id number] Oral 600 480 Output: Urine 300 4500 Other: Voiding Method Toilet Toilet Urinal Urinal # Voids 2 1 0 # Bowel Movements 1 0 - Exam PHYSICAL EXAMINATION: HEENT: Head is atraumatic, normocephalic. Pupils equal, round. Neck is supple. There is no elevated jugular venous pressure. HEART EXAMINATION: Heart S1 and S2 normal no murmur or gallop heard. CHEST EXAMINATION: Lungs reveal scattered coarse rhonchi that clear with cough. ABDOMEN: Soft,, nontender. Bowel sounds are heard. No organomegaly noted. Right radial site clean and dry, good distal pulse. EXTREMITIES: Doppler to 1+ peripheral pulses with no evidence of peripheral edema and no calf tenderness noted. Ulcerated area noted on the right foot. NEUROLOGIC patient is awake, alert and oriented -3. - Labs CBC & Chem 7: 01/19/17 06:16 01/19/17 06:16 Labs: Abnormal Lab Results - Last 24 Hours (Table) 01/18/17 01/19/17 01/19/17 Range/Units 21:15 06:04 06:16 Lymphocytes # 0.8 L (1.0-4.8) k/uL BUN (9-20) mg/dL Glucose (74-99) mg/dL POC Glucose (mg/dL) 205 H 119 H (75-99) mg/dL 01/19/17 Range/Units 06:16 Lymphocytes # (1.0-4.8) k/uL BUN 21 H (9-20) mg/dL Glucose 113 H (74-99) mg/dL POC Glucose (mg/dL) (75-99) mg/dL Assessment and Plan Plan: Assessment and plan #1 non-ST elevation myocardial infarction, status post angioplasty with stent placement of the right coronary artery. LAD is totally occluded, circumflex diffuse disease. #2 hypertension, untreated #3 hyperlipidemia, untreated #4 diabetes, untreated #5 nicotine dependence #6 family history of premature coronary artery disease #7 PAD and PVD Plan Patient may be able to be discharged home today from cardiology's perspective, we'll make him a follow-up appointment to see Dr. JOSE MARIA Kessler in the office post discharge. We will continue the patient on an oral dose of Lasix, along with aspirin 81 mg daily, Lipitor 80 mg daily, Coreg 6.25 mg twice a day, Plavix 75 mg daily, Lasix 40 mg daily, losartan 50 mg daily, and Aldactone 25 mg one tablet by mouth daily. Patient has been advised by Dr. JOSE MARIA Kessler that he may need implantation of an AICD down the road. Echo will be repeated in approximately 3 months duration. The patient has been provided prescriptions for all of the above medications and he's been educated regarding that as well. DNP note has been reviewed, I agree with a documented findings and plan of care. Patient was seen and examined.
--- NOTE | 2017-01-19 16:06 | P.DS ---
Providers Date of admission: 01/16/17 22:14 Attending physician: Na Bowser Consults: 01/18/17 19:18 Consult Physician Routine Consulting Provider: [facility] Consult Reason/Comments: Post Interventional patient Do you want consulting provider notified?: Already Contacted Primary care physician: Gerardo [facility] Course: This is a 61-year-old gentleman with significant vascular abnormalities including PAD, carotid disease status post a right-sided carotid endarterectomy comes in to the hospital with the a non-Q-wave elevation myocardial infarction. Patient apparently was noted to have a weak heart on a prior evaluation at another facility. patient underwent echocardiogram was noted to have ejection fraction around 20% . Patient thereafter underwent a cardiac catheterization as no prior was done. Patient was noted to have a complete total complete occlusion of the LAD circumflex was open dynamic according to the description. Patient required PCI/ PTCA to the RCA which was done by Dr. JOSE MARIA Kessler. On the day of discharge patient underwent a right radial approach of no abnormalities were noted on vascular checks. Patient denies having any chest pain difficulty breathing nausea vomiting abdominal pain. Objective - Vital Signs Vital signs: Vital Signs Temp 97.1 F L 01/18/17 15:21 Pulse 77 01/18/17 15:21 Resp 16 01/18/17 15:21 BP 171/84 01/18/17 15:21 Pulse Ox 97 01/18/17 15:21 Intake & Output 01/17/17 01/18/17 01/18/17 18:59 06:59 18:59 Intake Total 493 400 497.85 Output Total 450 Balance 493 -50 497.85 Weight 105.4 kg Intake: IV 400 208 Heparin Sodium,Porcine/ 400 128 D5w Pmx 25,000 unit In Dextrose/Water 1 500ml. bag @ 9.382 UNITS/KG/HR 20 mls/hr IV .Q24H [facility] Rx #:[id number] Sodium Chloride 0.9% 1, 80 000 ml @ 20 mls/hr IV . Q24H [facility] Rx#:[id number] Intake, IV Titration 375 289.85 Amount Heparin Sodium,Porcine/ 375 289.85 D5w Pmx 25,000 unit In Dextrose/Water 1 500ml. bag @ 9.382 UNITS/KG/HR 20 mls/hr IV .Q24H [facility] Rx #:[id number] Oral 118 0 Output: Urine 450 Other: Voiding Method Toilet Urinal # Voids 2 # Bowel Movements 1 - Exam Physical exam Gen. appearance oriented 3 in no distress Neck is supple no JVD Lungs good air entry clear to auscultation no rhonchi or wheezing Heart S1-S2 heard regular rate and rhythm no murmurs appreciated Abdomen is soft nontender no organomegaly bowel sounds are intact Neurologically cranial nerves II-12 grossly intact no focal motor or sensory deficits noted Skin healing ulcer on the right great toe on the dorsal surface - Labs CBC & Chem 7: 01/16/17 20:30 01/18/17 15:14 Labs: Abnormal Lab Results - Last 24 Hours (Table) 01/18/17 01/18/17 Range/Units 05:57 12:31 APTT 37.5 H (22.0-30.0) sec POC Glucose (mg/dL) 101 H (75-99) mg/dL Assessment and Plan Plan: Non-ST elevation myocardial infarction. PAD. Recent carotid endarterectomy on the right side. Ongoing tobacco use Hypertension that is untreated Dyslipidemia Healing right foot arterial ulcer that was present on admission compensated systolic heart failure that is present on admission DEE inhibitor, beta belen, aspirin, Plavix to continue. Patient is to follow- up with Dr. JOSE MARIA Kessler a repeat echocardiogram will be done with the low ejection fraction if it does not improve on the repeat echocardiogram in 3 months AICD placement for secondary prevention of sudden cardiac will be needed. Smoking cessation was discussed with the patient dietary restrictions were discussed with the patient patient is discharged home in a stable condition follow-upinstructions were given Plan - Discharge Summary New Discharge Prescriptions: Aspirin 81 mg PO DAILY #30 chew Atorvastatin [Lipitor] 80 mg PO DAILY #30 tab Carvedilol [Coreg] 6.25 mg PO BID-W/MEALS #60 tab Clopidogrel [Plavix] 75 mg PO DAILY #30 tab Furosemide [Lasix] 40 mg PO DAILY #30 tab Losartan [Cozaar] 50 mg PO DAILY #30 tab Nitroglycerin Sl Tabs [Nitrostat] 0.4 mg SUBLINGUAL Q5M PRN #25 tab PRN Reason: Chest Pain Spironolactone [Aldactone] 25 mg PO DAILY #30 tab Discharge Medication List Gabapentin [Neurontin] 100 mg PO HS 01/16/17 [History] Tamsulosin [Flomax] 0.4 mg PO HS 01/16/17 [History] Aspirin 81 mg PO DAILY #30 chew 01/19/17 [Rx] Atorvastatin [Lipitor] 80 mg PO DAILY #30 tab 01/19/17 [Rx] Carvedilol [Coreg] 6.25 mg PO BID-W/MEALS #60 tab 01/19/17 [Rx] Clopidogrel [Plavix] 75 mg PO DAILY #30 tab 01/19/17 [Rx] Furosemide [Lasix] 40 mg PO DAILY #30 tab 01/19/17 [Rx] Losartan [Cozaar] 50 mg PO DAILY #30 tab 01/19/17 [Rx] Nitroglycerin Sl Tabs [Nitrostat] 0.4 mg SUBLINGUAL Q5M PRN #25 tab 01/19/17 [Rx ] Spironolactone [Aldactone] 25 mg PO DAILY #30 tab 01/19/17 [Rx] Follow up Appointment(s)/Referral(s): Karla Kessler MD [STAFF PHYSICIAN] - 1 Week Gerardo Tompkins DO [Primary Care Provider] - 1-2 days Discharge Disposition: HOME SELF-CARE
== END 2017-01-19 17:49 | disposition home or self-care (01) | DRG 247 ==
LOC: EC 19:45 → 6SEL 22:14
PROVIDERS: ADMIT Hospitalist; ATTEND Hospitalist
PROC: B2111ZZ Fluoroscopy of Multiple Coronary Arteries using Low Osmolar Contrast (ICD-10-PCS; 2017-01-18)
PROC: 4A023N7 Measurement of Cardiac Sampling and Pressure, Left Heart, Percutaneous Approach (ICD-10-PCS; principal; 2017-01-18 17:30)
PROC: 027036Z Dilation of Coronary Artery, One Artery with Three Drug-eluting Intraluminal Devices, Percutaneous Approach (ICD-10-PCS; 2017-01-18 17:30)
DX: I21.4 Non-ST elevation (NSTEMI) myocardial infarction (principal); I50.22 Chronic systolic (congestive) heart failure; I11.0 Hypertensive heart disease with heart failure; E11.621 Type 2 diabetes mellitus with foot ulcer; I25.10 Atherosclerotic heart disease of native coronary artery without angina pectoris; I73.9 Peripheral vascular disease, unspecified; E78.5 Hyperlipidemia, unspecified; F17.200 Nicotine dependence, unspecified, uncomplicated; Z86.73 Personal history of transient ischemic attack (TIA), and cerebral infarction without residual deficits; L97.519 Non-pressure chronic ulcer of other part of right foot with unspecified severity; Z79.899 Other long term (current) drug therapy; Z82.49 Family history of ischemic heart disease and other diseases of the circulatory system
CPT/HCPCS: 36415; 80048; 80053; 80061; 82550; 82553; 83735; 84484; 85025; 85610; 85730; 93005; 93306; 93458; 96365; 96366; 96376; 99291

== ENCOUNTER 2017-10-07 22:16 | Inpatient (IN) | payer OTHER ==
[2017-10-07] MEDS ORDERED: VANCOMYCIN IV PER PHARMACY 1 EACH MISC MISCELLANE PRN (22:30)
[2017-10-07] MEDS ORDERED: PIPERACILLIN-TAZOBACTAM 3.375 GM in DEXTROSE/WATER 1 50ML.BAG IVPB STA (22:31)
[2017-10-07] MEDS ORDERED: NALOXONE 0.4 MG/ML 1 ML VIAL IV PRN (22:34)
--- NOTE | 2017-10-07 22:42 | ED ---
General Adult HPI - General Chief complaint: Recheck/Abnormal Lab/Rx Stated complaint: Infection Time Seen by Provider: 10/07/17 22:23 Source: patient, EMS, RN notes reviewed Mode of arrival: EMS Limitations: no limitations - History of Present Illness Initial comments: 62-year-old male presents as a transfer from [facility] with right foot cellulitis and osteomyelitis. Patient has had chronic nonhealing wound for several months, this initially improved and then one month ago began draining. The material again. Patient went to [facility] today for evaluation as his foot had increased redness and swelling as well as increased drainage from the wound. Patient also reported fever. He was found to be febrile at 101 prior to transfer. Patient had not been on any recent antibiotics. He previously been seen at the wound clinic but had not been evaluated sometime secondary to insurance issues. Patient has past medical history of CAD, PVD, and diabetes. - Related Data Home Medications Medication Instructions Recorded Confirmed Gabapentin [Neurontin] 100 mg PO HS 01/16/17 01/16/17 Tamsulosin [Flomax] 0.4 mg PO HS 01/16/17 01/16/17 Previous Rx's Medication Instructions Recorded Aspirin 81 mg PO DAILY #30 chew 01/19/17 Atorvastatin [Lipitor] 80 mg PO DAILY #30 tab 01/19/17 Carvedilol [Coreg] 6.25 mg PO BID-W/MEALS #60 tab 01/19/17 Clopidogrel [Plavix] 75 mg PO DAILY #30 tab 01/19/17 Furosemide [Lasix] 40 mg PO DAILY #30 tab 01/19/17 Losartan [Cozaar] 50 mg PO DAILY #30 tab 01/19/17 Nitroglycerin Sl Tabs [Nitrostat] 0.4 mg SUBLINGUAL Q5M PRN #25 tab 01/19/17 Spironolactone [Aldactone] 25 mg PO DAILY #30 tab 01/19/17 Allergies Allergy/AdvReac Type Severity Reaction Status Date / Time acetaminophen [From Vicodin] AdvReac Hallucinati Verified 10/07/17 22:26 ons hydrocodone [From Vicodin] AdvReac Hallucinati Verified 10/07/17 22:26 ons Review of Systems ROS Statement: Those systems with pertinent positive or pertinent negative responses have been documented in the HPI. ROS Other: All systems not noted in ROS Statement are negative. Past Medical History Past Medical History: CVA/TIA, Hyperlipidemia, Hypertension, Skin Disorder Additional Past Medical History / Comment(s): PT IS POOR HISTORIAN-PT STATES HAS SOME BLOCKAGES IN [place]. LEGS & RT NECK- STATES FEET ARE ALWAYS ICE COLD- RT GREAT TOE HAS HOLE. LOWER BACK PAIN ALSO. URINE FREQUENCY-UP 2-3 X A NIGHT. WAS ON 11 MEDICATIONS FRON IN [place]- BUT STOPPED USING THEM. PT also states he had a blockage removed from his carotid artery and that the hospital told him he had two strokes History of Any Multi-Drug Resistant Organisms: None Reported Past Surgical History: Tonsillectomy Additional Past Surgical History / Comment(s): ABDOMINAL SURGERY- REMOVED FISH BONE THAT HAD PUT HOLE IN STOMACH. REPAIR OF BLOCKAGES IN RT LEG 2011 Past Anesthesia/Blood Transfusion Reactions: No Reported Reaction Past Psychological History: No Psychological Hx Reported Smoking Status: Former smoker Past Alcohol Use History: None Reported Past Drug Use History: None Reported - Past Family History Mother Family Medical History: Cancer Father Family Medical History: Myocardial Infarction ([place]) General Exam Limitations: no limitations General appearance: alert, in no apparent distress Head exam: Present: atraumatic, normocephalic Eye exam: Present: normal appearance, PERRL ENT exam: Present: normal exam Neck exam: Present: normal inspection. Absent: tenderness, meningismus Respiratory exam: Present: normal lung sounds bilaterally. Absent: respiratory distress Cardiovascular Exam: Present: regular rate, normal rhythm GI/Abdominal exam: Present: soft, distended. Absent: tenderness, guarding Extremities exam: Present: other (Right foot: DP and PT pulses 2+, swelling and erythema to the mid foot, there is an open draining wound on the plantar surface at the base of the first metatarsal, significant purulent material expressed from the wound.) Neurological exam: Present: alert, oriented X3, CN II-XII intact. Absent: motor sensory deficit Psychiatric exam: Present: normal affect, normal mood Skin exam: Present: warm, dry, intact. Absent: cyanosis, diaphoretic Course Vital Signs 10/07/17 22:19 Temperature 98.8 F Pulse Rate 80 Respiratory 16 Rate Blood Pressure 167/95 O2 Sat by Pulse 94 L Oximetry Medical Decision Making - Medical Decision Making 62-year-old male presents for evaluation of right foot swelling and drainage from nonhealing wound. Patient found to have concern for osteomyelitis on x- ray with soft tissue swelling and concern for soft tissue gas, there was an open wound on the base of the first metatarsal plantar surface. Patient was given 2 g vancomycin prior to transfer. He will be continued on vancomycin and Zosyn will be added at this time. Culture of the wound and blood was obtained prior to transfer. Laboratory studies revealed glucose 158, creatinine 1.0, sodium 135, potassium 4.1, lactic acid was normal 1.2, white blood cell count mildly elevated at 12 which was 75% neutrophils, hemoglobin stable 15.7. These laboratory studies will be repeated in the morning. Patient will be admitted for continued IV antibiotics and further evaluation. Diagnosis: Concern for right foot osteomyelitis, cellulitis and open nonhealing wound of the right foot. Disposition Clinical Impression: Osteomyelitis of right foot, Cellulitis, Diabetic foot ulcer Disposition: [facility] Condition: Stable Referrals: Monique Cool MD [Primary Care Provider] - 1-2 days Decision to Admit Reason: Admit from EC Decision Date: 10/07/17 Decision Time: 22:42
[2017-10-08] MEDS: PIPERACILLIN-TAZOBACTAM 3.375 GM in DEXTROSE/WATER 1 50ML.BAG IVPB SCH ×4 (00:10→23:19)
[2017-10-08] MEDS ORDERED: NITROGLYCERIN SL TABS 0.4 MG TAB SUBLINGUAL PRN (00:22)
[2017-10-08] MEDS ORDERED: ALPRAZolam 0.25 MG TAB PO PRN (00:23)
[2017-10-08] MEDS ORDERED: TEMAZEPAM 15 MG CAP PO PRN (00:23)
[2017-10-08] MEDS: SODIUM CHLORIDE 0.9% 1,000 ML IV SCH ×2 (04:18→23:21)
[2017-10-08] MEDS: CLOPIDOGREL 75 MG TAB PO SCH (06:44)
[2017-10-08] MEDS: CARVEDILOL 6.25 MG TAB PO SCH ×2 (06:44→16:58)
[2017-10-08] MEDS: PANTOPRAZOLE 40 MG TABLET PO SCH (06:44)
[2017-10-08 07:11] LABS: INR 1.1 (<1.2); Prothrombin Time 10.6 sec (9.0-12.0)
[2017-10-08 07:21] LABS: ALT 49 U/L (21-72); AST 26 U/L (17-59); Albumin 3.6 g/dL (3.5-5.0); Alkaline Phosphatase 106 U/L (38-126); Anion Gap 7 mmol/L; Blood Urea Nitrogen 19 mg/dL (9-20); Calcium 9.1 mg/dL (8.4-10.2); Carbon Dioxide 30 mmol/L (22-30); Chloride 101 mmol/L (98-107); Glucose 179 mg/dL (74-99); Magnesium 2.1 mg/dL (1.6-2.3); Sodium 138 mmol/L (137-145); Total Bilirubin 1.1 mg/dL (0.2-1.3); Total Protein 6.6 g/dL (6.3-8.2)
[2017-10-08 07:27] LABS: Vancomycin,Random 6.7 ug/mL
[2017-10-08 07:50] LABS: Potassium 4.9 mmol/L (3.5-5.1)
[2017-10-08] MEDS: HEPARIN SODIUM,PORCINE 5,000 UNIT/ML 1 ML VIAL SQ SCH ×2 (07:57→20:08)
[2017-10-08] MEDS: ASPIRIN 81 MG PO SCH (08:01)
[2017-10-08] MEDS: VANCOMYCIN 1,750 MG in SODIUM CHLORIDE 0.9% 250 ML IVPB SCH ×2 (10:00→18:04)
[2017-10-08 16:41] LABS: Glucose,Whole Blood 101 mg/dL (75-99)
[2017-10-08 16:49] VITALS: BMI 30.9
[2017-10-08] MEDS: INSULIN ASPART 100 UNIT/ML 1 ML 10 ML VIAL SQ SCH ×2 (16:58→20:08)
--- NOTE | 2017-10-08 17:28 | HP ---
HISTORY AND PHYSICAL DATE OF SERVICE: 10/08/2017 CHIEF COMPLAINTS: Pain and swelling of the right foot and osteomyelitis. HISTORY OF PRESENT ILLNESS: This 62-year-old gentleman with a past medical history of multiple medical problems including CVA, TIA, hypertension, hyperlipidemia, history of myocardial infarction, history of tonsillectomy, being followed by no primary physician in the outpatient setting recently at [facility] with complaints of pain and swelling of the infection of the right foot over the past several weeks. The patient does not have diabetes according to him. The patient also has seen wound care previously. The patient has multiple complex medical problems. The patient apparently is on 11 medications from doctor from [place], which the patient apparently stopped. There is no history of fever, rigors. No history of headache, loss of consciousness or seizures. PAST MEDICAL: CVA, TIA, hypertension, hyperlipidemia, history of myocardial infarction, skin disorder. MEDICATIONS: Home medications are Tylenol 500 mg q.6h p.r.n., nitroglycerin 0.4 sublingual p.r.n. ALLERGIES: VICODIN. FAMILY HISTORY: History of cancer in the family. SOCIAL HISTORY: Remote history of alcoholism. Previous history of smoking. REVIEW OF SYSTEMS: ENT: No diminished hearing or vision. CARDIOVASCULAR: No angina. RESPIRATORY: No cough. GI: No nausea. : No dysuria. NERVOUS SYSTEM: No numbness or weakness. ALLERGY/IMMUNOLOGY No asthma. MUSCULOSKELETAL: As mentioned earlier. HEMATOLOGY: No history of anemia. ENDOCRINE: As mentioned. CONSTITUTIONAL: As mentioned earlier. DERMATOLOGY: Negative. RHEUMATOLOGY: Negative. PSYCHIATRY: As mentioned earlier. PHYSICAL EXAMINATION: Alert and oriented x3. Pulse 82, blood pressure 159/82, respirations 16, temperature 99 degrees, pulse ox 98% on room air. HEENT: Conjunctivae normal. Oral mucosa moist. Neck is no jugular venous distention. No lymph node enlargement. CARDIOVASCULAR: S1, S2. No S3, no S4. RESPIRATORY: Breath sounds diminished in the bases. A few scattered rhonchi and crackles. ABDOMEN: Soft, obese, nontender. No mass palpable. LEGS: Right leg especially the big toe is swollen. Significant ulceration on the dorsum of the foot present. Significant tenderness and erythema around it. Pulses diminished bilaterally. NERVOUS SYSTEM: Higher functions as mentioned. Moves all four limbs. No focal motor sensory deficits. LYMPHATICS: No lymphadenopathy in the neck or axillae. JOINTS: No active deforming arthropathy. DERMATOLOGY: As mentioned earlier. LAB: INR is 1.1. Glucose 179. ASSESSMENT: 1. Acute ulcer on the right foot with possible osteomyelitis. 2. Rule out diabetes mellitus type 2. 3. History of hypertension. 4. History of hyperlipidemia. 5. History of myocardial infarction. 6. History of cerebrovascular accident, transient ischemic attack. RECOMMENDATION AND DISCUSSION: In this 62-year-old gentleman who presented with multiple complex medical issues, I would recommend to continue current management, broad-spectrum IV antibiotics. We will initiate Zosyn and Vanco. Cultures. Dressing and consult Dr. Sol and as well as Dr. Gonzalez for further evaluation and treatment. Patient also had a questionable artery supply in the legs and also I would also recommend control the blood pressures and I would also recommend Accu-Cheks a.c. and at bedtime and scale also. I would also recommend a hemoglobin A1c to rule out the possibility of diabetes mellitus also. Prognosis guarded because of multiple complex medical issues. Further recommendations to follow. The patient has got some history of noncompliance also. Further recommendations to follow. MMODL / IJN: [id number] /
[2017-10-08 20:05] LABS: Glucose,Whole Blood 266 mg/dL (75-99)
[2017-10-08] MEDS: ACETAMINOPHEN TAB 325 MG TAB PO PRN (20:53)
[2017-10-08 22:57] LABS: Hemoglobin A1C 6.5 % (4.0-6.0)
--- NOTE | 2017-10-08 23:23 | P.CONS ---
History of Present Illness - Reason for Consult Consult date: 10/08/17 - Chief Complaint Right groin pain - History of Present Illness 62-year-old male who has quite a protracted past medical history relates that earlier this year he has significant chest pain and apparently had an acute myocardial infarction. He was resuscitated and transferred to this facility. He underwent cardiac catheterization and stent placement into his LAD and circumflex. He relates to a very convoluted story as to his post cardiac catheterization follow-up. Eventually relating that he was so frustrated with his ability to have follow-up that he simply stopped follow-up. Given relates that he was taking all these medications. He was driving and had a sudden change in his vision. Fortunately he was with another person and they were able to take over the driving. After several hours his vision improved. He blamed his medications and the visual change and stopped taking them including his aspirin and Plavix. He relates he attempted to have follow- up with his physicians but again had a convoluted story as to why he could not have follow-up. As to the ulcer of his right great toe it's been present for quite some time. He's been cared for by the wound center close to his home has also been seen by vascular surgery. It is important time even offered an amputation to allow it to heal and he simply stopped follow-up. He did have a significant dermatitis to his left foot in the past that was apparently steroid responsive and treated by Dr. Wheat in [place]. Patient is now sought care probably because he was having some recurrent chest pain which is now better, as well as the pain in his right groin for which cause worry to his entire leg. He doesn't believe he has had high-grade fevers or chills. But the foot has been red and warm and with some foul drainage. Review of Systems HEENT:Denies headache or acute visual change. Denies sinus or mouth discomforts. Denies neck stiffness or pain. Denies significant oral cavity pain. Denies difficulty on swallowing. Lungs: Denies significant shortness of breath, cough, sputum production, or hemoptysis. Cardiovascular: Is noted per the HPI had some chest pain that is now resolved. He has fatigue and malaise but denies significant new shortness of breath cough or sputum production. Gastrointestinal:Denies nausea, vomiting, diarrhea, constipation, hematemesis, melena, hematochezia. No no significant change of bowel habit noticed. Musculoskeletal: denies significant myalgias or arthralgias. No new joint swelling. Denies new back pain. Skin: Chronic ulcer as per the HPI Neuro: Denies headache or visual change. Denies any new onset weakness or difficulty with ambulation. Denies falls or seizures. Psychiatric:Denies anxiety or depression. Endocrine: History of progressive fatigue over the last several days Past Medical History Past Medical History: CVA/TIA, Hyperlipidemia, Hypertension, Myocardial Infarction ([place]), Skin Disorder Additional Past Medical History / Comment(s): PT IS POOR HISTORIAN-PT STATES HAS SOME BLOCKAGES IN [place]. LEGS & RT NECK- STATES FEET ARE ALWAYS ICE COLD- RT GREAT TOE HAS HOLE. LOWER BACK PAIN ALSO. URINE FREQUENCY-UP 2-3 X A NIGHT. WAS ON 11 MEDICATIONS FRON IN [place]- BUT STOPPED USING THEM. PT also states he had a blockage removed from his carotid artery and that the hospital told him he had two strokes Last Myocardial Infarction Date:: 01/18/17 History of Any Multi-Drug Resistant Organisms: None Reported Past Surgical History: Tonsillectomy Additional Past Surgical History / Comment(s): ABDOMINAL SURGERY- REMOVED FISH BONE THAT HAD PUT HOLE IN STOMACH. REPAIR OF BLOCKAGES IN RT LEG 2011 Past Anesthesia/Blood Transfusion Reactions: No Reported Reaction Past Psychological History: No Psychological Hx Reported Additional Psychological History / Comment(s): and lives with a long- term lady friend. One adult son. Tobacco smoker till his myocardial infarction. Denies alcohol at this time it was a drinker 20 years ago. 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 No animal exposures Smoking Status: Former smoker Past Alcohol Use History: None Reported Additional Past Alcohol Use History / Comment(s): NO ALCOHOL IN 20 YRS- USE TO BE A PROBLEM Past Drug Use History: None Reported - Past Family History Mother Family Medical History: Cancer Father Family Medical History: Myocardial Infarction ([place]) Medications and Allergies Home Medications and Allergies Comment(s): Current Medications Acetaminophen (Tylenol Tab) 650 mg PO Q6HR PRN PRN Reason: Fever and/ or MILD Pain Last Admin: 10/08/17 20:53 Dose: 650 mg Alprazolam (Xanax) 0.25 mg PO TID PRN PRN Reason: Anxiety Aspirin (Aspirin) 81 mg PO DAILY [facility] Last Admin: 10/08/17 08:01 Dose: Not Given Carvedilol (Coreg) 6.25 mg PO BID-W/MEALS [facility] Last Admin: 10/08/17 16:58 Dose: Not Given Clopidogrel Bisulfate (Plavix) 75 mg PO DAILY [facility] Last Admin: 10/08/17 06:44 Dose: Not Given Heparin Sodium (Porcine) (Heparin) 5,000 unit SQ Q12HR [facility] Last Admin: 10/08/17 20:08 Dose: 5,000 unit Piperacillin/Tazobactam/ (Dextrose 3.375 gm/ IV Solution) 50 mls @ 12.5 mls/hr IVPB Q8HR [facility] Last Admin: 10/08/17 16:58 Dose: 12.5 mls/hr Sodium Chloride (Saline 0.9%) 1,000 mls @ 20 mls/hr IV .Q24H [facility] Last Admin: 10/08/17 04:18 Dose: Not Given Vancomycin HCl 1,750 mg/ (Sodium Chloride) 250 mls @ 125 mls/hr IVPB Q12HR@0600 ,1800 [facility] Last Admin: 10/08/17 18:04 Dose: 125 mls/hr Insulin Aspart (Novolog) 0 unit SQ ACHS [facility] PRN Reason: Protocol Last Admin: 10/08/17 20:08 Dose: 6 unit Multivitamins (Theragran) 1 each PO DAILY@1200 [facility] Naloxone HCl (Narcan) 0.2 mg IV Q2M PRN PRN Reason: Opioid Reversal Nitroglycerin (Nitrostat) 0.4 mg SUBLINGUAL Q5M PRN PRN Reason: Chest Pain Pantoprazole Sodium (Protonix) 40 mg PO AC-BRKFST [facility] Last Admin: 10/08/17 06:44 Dose: Not Given Temazepam (Restoril) 15 mg PO HS PRN PRN Reason: Insomnia Home Medications Medication Instructions Recorded Confirmed Type Nitroglycerin Sl Tabs [Nitrostat] 0.4 mg SUBLINGUAL Q5M PRN #25 tab 01/19/17 Rx Acetaminophen Tab [Tylenol Tab] 500 - 1,000 mg PO Q6HR PRN 10/08/17 10/08/17 History Allergies Allergy/AdvReac Type Severity Reaction Status Date / Time hydrocodone [From Vicodin] AdvReac Hallucinati Verified 10/08/17 07:56 ons Physical Exam Vitals: Vital Signs Temp Pulse Pulse Resp BP BP Pulse Ox 10/08/17 21:30 98.7 F 10/08/17 20:00 101.5 F H 95 18 155/85 93 L 10/08/17 15:00 98.7 F 73 16 145/77 95 10/08/17 07:00 99.0 F 82 16 159/82 93 L 10/08/17 02:57 98 F 88 18 126/76 99 10/07/17 23:00 98.1 F 76 18 154/88 96 10/07/17 22:59 68 18 144/78 96 Intake and Output 10/08/17 10/08/17 10/08/17 06:59 14:59 22:59 Intake Total 610 175 800 Balance 610 175 800 Intake: Intake, IV Titration 110 175 300 Amount Piperacillin-Tazobactam 3 50 50 50 .375 gm In Dextrose/Water 1 50ml.bag @ 12.5 mls/hr IVPB Q8HR [facility] Rx#: [id number] Sodium Chloride 0.9% 1, 60 000 ml @ 20 mls/hr IV . Q24H [facility] Rx#:[id number] Vancomycin 1,750 mg In 125 250 Sodium Chloride 0.9% 250 ml @ 125 mls/hr IVPB Q12HR@0600,1800 [facility] Rx#: [id number] Oral 500 500 Other: Voiding Method Toilet Toilet # Voids 1 1 Weight 106.141 kg Patient Weight 10/09/17 06:59 Weight 106.141 kg HEENT: Anicteric conjunctiva are pink and moist nasal mucosa grossly intact without significant lesions, there is no thrush. Neck: The neck is supple without significant lymphadenopathy or thyromegaly. Lungs: Good bilateral air entry without significant crackles or wheezing. There is no significant bronchial sounds. There is no egophony or dullness. Heart: Regular rate and rhythm with an audible S1-S2, no S3 no S4. There is no significant murmur click or rub, PMI was nondisplaced. Abdomen: Positive bowel sounds soft and nontender without palpable masses or organomegaly. There was no guarding or rebound. Extremities: The upper extremities have excellent pulses they are symmetric, no significant petechiae or telangiectasia. No splinter hemorrhages were noted. Left foot without any specific open lesions. Has chronic skin discoloration of the left leg especially pretibial area. The foot is cool to touch but not cold. Right lower extremity shows evidence of some warmth and erythema. Chronic swelling to the great toe area. Chronic ulceration with thickened callus. Some malodorous drainage. Ulceration is 2 x 2 with 1 cm of depth. Neuro: Awake alert oriented to person place and time. There are no acute new gross focal sensory motor deficits. Results CBC & Chem 7: 10/08/17 06:33 Labs: Abnormal Lab Results - Last 24 Hours (Table) 10/08/17 10/08/17 10/08/17 Range/Units 06:33 06:33 06:33 ESR 69 H (0-15) mm/hr Glucose 179 H (74-99) mg/dL POC Glucose (mg/dL) (75-99) mg/dL C-Reactive Protein 173.9 H (<10.0) mg/L 10/08/17 10/08/17 Range/Units 16:33 20:03 ESR (0-15) mm/hr Glucose (74-99) mg/dL POC Glucose (mg/dL) 101 H 266 H (75-99) mg/dL C-Reactive Protein (<10.0) mg/L Laboratory Results ESR 69 mm/hr (0-15) H 10/08/17 06:33 PT 10.6 sec (9.0-12.0) 10/08/17 06:33 INR 1.1 (<1.2) 10/08/17 06:33 Sodium 138 mmol/L (137-145) 10/08/17 06:33 Potassium 4.9 mmol/L (3.5-5.1) 10/08/17 06:33 Chloride 101 mmol/L (98-107) 10/08/17 06:33 Carbon Dioxide 30 mmol/L (22-30) 10/08/17 06:33 Anion Gap 7 mmol/L 10/08/17 06:33 BUN 19 mg/dL (9-20) 10/08/17 06:33 Creatinine 1.00 mg/dL (0.66-1.25) 10/08/17 06:33 Est GFR (MDRD) Af Amer >60 (>60 ml/min/1.73 sqM) 10/08/17 06:33 Est GFR (MDRD) Non-Af >60 (>60 ml/min/1.73 sqM) 10/08/17 06:33 Glucose 179 mg/dL (74-99) H 10/08/17 06:33 POC Glucose (mg/dL) 266 mg/dL (75-99) H 10/08/17 20:03 POC Glu Hot Walker ID Latha Davies 10/08/17 20:03 Calcium 9.1 mg/dL (8.4-10.2) 10/08/17 06:33 Magnesium 2.1 mg/dL (1.6-2.3) 10/08/17 06:33 Total Bilirubin 1.1 mg/dL (0.2-1.3) 10/08/17 06:33 AST 26 U/L (17-59) 10/08/17 06:33 ALT 49 U/L (21-72) 10/08/17 06:33 Alkaline Phosphatase 106 U/L (38-126) 10/08/17 06:33 C-Reactive Protein 173.9 mg/L (<10.0) H 10/08/17 06:33 Total Protein 6.6 g/dL (6.3-8.2) 10/08/17 06:33 Albumin 3.6 g/dL (3.5-5.0) 10/08/17 06:33 Random Vancomycin 6.7 ug/mL 10/08/17 06:33 Microbiology 10/08/17 15:19 Foot - Right Wound Culture - Preliminary 10/08/17 15:19 Foot - Right Anaerobic Culture - Preliminary Assessment and Plan (1) Osteomyelitis of right foot Current Visit: Yes Status: Acute Code(s): M86.9 - OSTEOMYELITIS, UNSPECIFIED SNOMED Code(s): 0017773538038641 (2) Diabetic ulcer of foot associated with diabetes mellitus due to underlying condition, with necrosis of bone Narrative/Plan: 62-year-old male presents to Hospital after transfer from outside hospital due to difficulties with chest pain. This is now resolved. He overs having pain to his right groin as well as swelling to the foot at the great toe with some drainage. He relates to the history of an ongoing ulceration that is from present for quite some time with evidence of peripheral vascular disease. He does related this point in time they've been offering a dictation that he refused in the past. This time the patient has the chronic diabetic ulceration likely has underlying osteomyelitis. Bone scans been requested. Cultures are obtained. Antimicrobial therapy with Zosyn and vancomycin have been started to cover the plethora of potential organisms. Local wound care with medical on he has been requested. Patient will need some type of offloading shoe or boot. He has no desire to follow-up in the wound healing Center. Relates that it's a waste of time. Consequently workup will be performed and will present options to the patient that he will then choose what he believes he will be able to accomplish. Basic laboratories are performed. Vascular surgery consult assertive in requested and they will direct further vascular workup. Current Visit: Yes Status: Acute Code(s): E08.621 - DIABETES MELLITUS DUE TO UNDERLYING CONDITION W FOOT ULCER; L97.504 - NON-PRS CHRONIC ULCER OTH PRT UNSP FOOT W NECROSIS OF BONE SNOMED Code(s): 654620610 (3) Noncompliance Current Visit: No Status: Acute Code(s): Z91.19 - PATIENT'S NONCOMPLIANCE W OTH MEDICAL TREATMENT AND REGIMEN SNOMED Code(s): 1352166
[2017-10-09] MEDS: ACETAMINOPHEN TAB 325 MG TAB PO PRN (04:02)
[2017-10-09] MEDS: VANCOMYCIN 1,750 MG in SODIUM CHLORIDE 0.9% 250 ML IVPB SCH (05:36)
[2017-10-09 07:02] LABS: Glucose,Whole Blood 138 mg/dL (75-99)
[2017-10-09 07:17] LABS: Basophils % (A) 0 %; Eosinophils # (A) 0.1 k/uL (0-0.7); Eosinophils % (A) 1 %; HCT 44.6 % (39.0-53.0); HGB 14.2 gm/dL (13.0-17.5); Lymphocytes # (A) 1.1 k/uL (1.0-4.8); Lymphocytes % (A) 11 %; MCH 30.3 pg (25.0-35.0); MCHC 31.8 g/dL (31.0-37.0); MCV 95.4 fL (80.0-100.0); Monocytes # (A) 0.6 k/uL (0-1.0); Monocytes % (A) 6 %; Neutrophils # (A) 7.7 k/uL (1.3-7.7); Neutrophils % (A) 80 %; Platelet Count 218 k/uL (150-450); RBC 4.68 m/uL (4.30-5.90); RDW 14.9 % (11.5-15.5); WBC 9.7 k/uL (3.8-10.6)
[2017-10-09] MEDS: INSULIN ASPART 100 UNIT/ML 1 ML 10 ML VIAL SQ SCH ×4 (07:51→22:12)
[2017-10-09 08:01] LABS: Anion Gap 6 mmol/L; Blood Urea Nitrogen 22 mg/dL (9-20); Calcium 9.1 mg/dL (8.4-10.2); Carbon Dioxide 32 mmol/L (22-30); Chloride 100 mmol/L (98-107); Glucose 136 mg/dL (74-99); Potassium 5.5 mmol/L (3.5-5.1); Sodium 138 mmol/L (137-145)
[2017-10-09] MEDS: HEPARIN SODIUM,PORCINE 5,000 UNIT/ML 1 ML VIAL SQ SCH ×2 (08:35→22:13)
[2017-10-09] MEDS: ASPIRIN 81 MG PO SCH (08:35)
[2017-10-09] MEDS: CARVEDILOL 6.25 MG TAB PO SCH ×2 (08:35→16:47)
[2017-10-09] MEDS: PANTOPRAZOLE 40 MG TABLET PO SCH (08:35)
[2017-10-09] MEDS: CLOPIDOGREL 75 MG TAB PO SCH (08:35)
[2017-10-09] MEDS: PIPERACILLIN-TAZOBACTAM 3.375 GM in DEXTROSE/WATER 1 50ML.BAG IVPB SCH ×2 (09:30→15:17)
[2017-10-09 11:14] LABS: Glucose,Whole Blood 226 mg/dL (75-99)
--- NOTE | 2017-10-09 11:47 | CONS ---
DATE OF CONSULTATION: 10/09/2017 This is 62-year-old gentleman who has been transferred from [facility] to [facility] for right foot chronic wound and osteomyelitis. The patient has this chronic nonhealing wound to the right foot plantar aspect for long period of time. According to the patient, he has been to different places. He has been treated at [facility] and he used to come to the Wound [facility] in [place]. The patient has been admitted and had a culture and also patient is put on IV antibiotic by Dr. Sol. The patient also had a bone scan ordered and is in progress. MEDICAL HISTORY: Patient has history of coronary artery disease and had stents placed in the past. The patient also has a history of peripheral vascular disease. He had surgical intervention in [place]. The patient has history of diabetes and on medication. The patient also had a right carotid endarterectomy done at [facility] in the past. EXAMINATION: Patient was seen in his room. NECK: Supple. CHEST: Clear to auscultation. ABDOMEN: Soft. Femoral pulses are present. Dorsalis pedal pulses palpable on the right side. DP on the left side is 1+. Left foot is cooler than the right foot. The patient has a chronic wound on the plantar aspect of the right foot with marked swelling of the right great toe. PLAN: Patient has been started on Medihoney gel to the wound and IV antibiotic and we are awaiting for bone scan. I will discuss with Dr. Villeda for further management. The patient will be followed once the culture has been taken and the proper antibiotics for problem in the wound clinic. If the patient needed surgical intervention, we will proceed. Thank very much for the consultation. MMODL / IJN: [id number] / ESTIVEN
[2017-10-09] MEDS: MULTIVITAMINS, THERA 1 EACH TAB PO SCH (12:28)
--- NOTE | 2017-10-09 14:07 | NM ---
EXAMINATION TYPE: NM bone 3 phase DATE OF EXAM: 10/09/2017 COMPARISON: NONE HISTORY: Right big toe possible osteomyelitis. Infection. Triple phase bone scintigraphy was performed following the injection of26.3 mCi Tc 99m MDP. Immediat e images and 6 hours post injection images acquired. FINDINGS: The flow study shows hyperemia of the right forefoot. Delayed images show moderately intense increase d uptake involving the first metatarsal head and the proximal phalanx and distal phalanx of the big t oe of the right foot. Right foot x-rays from 10/07/2017 show hallux valgus of the right foot with some spurring at the firs t MP joint. There is soft tissue swelling of the big toe. IMPRESSION: There is delayed increased uptake involving the entire proximal phalanx of the right foot and to less er extent the distal phalanx of the big toe as well as the first metatarsal head. This is suspicious for osteomyelitis. This is not a pattern of osteoarthritis involving the first MP joint.
[2017-10-09] MEDS ORDERED: VANCOMYCIN TROUGH DUE 1 EACH MISC MISCELLANE ONE (17:00)
[2017-10-09 17:02] LABS: Glucose,Whole Blood 176 mg/dL (75-99)
[2017-10-09 21:22] LABS: Glucose,Whole Blood 235 mg/dL (75-99)
--- NOTE | 2017-10-09 21:36 | PN ---
PROGRESS NOTE DATE OF SERVICE: 10/09/2017. INTERIM HISTORY: This 62-year-old gentleman who was admitted with acute ulcer of the right foot and possible diabetic ulcer, osteomyelitis, is being closely monitored. A bone scan has been done which showed possible osteomyelitis involving the proximal phalanx of the right foot. Infectious Disease and as well as orthopedic surgery is following the patient closely. No chest pain. No palpitations. No fever. EXAM: Alert and oriented x3. Pulse 72. Blood pressure 137/72, respirations 16, temperature 98.2, pulse ox 98% room air. HEENT: Conjunctivae normal. Neck: No jugular venous distention. Cardiovascular: S1, S2 muffled. Respiratory: Breath sounds diminished in the basis. A few scattered rhonchi and crackles. Abdomen is soft, nontender. Legs: Right foot diabetic foot. Nervous system: No focal deficits. LAB STUDIES: CBC within normal limits. Sodium 130, potassium 5.5. Accu-Cheks 136. Cultures are awaited. ASSESSMENT: 1. Acute ulcer of the right foot with possibly a diabetic ulcer and osteomyelitis. 2. Diabetes type 2. 3. Hypertension. 4. Hyperlipidemia. 5. History of myocardial infarction. 6. History of cerebrovascular accident, transient ischemic attack. RECOMMENDATIONS AND DISCUSSION: Recommend to continue current medications. Continue the current management and symptomatic treatment. Continue broad spectrum IV antibiotics. Otherwise, blood sugar was found to be elevated. Hemoglobin A1c is not available at this time. Otherwise, potassium is elevated. Repeat lytes are recommended. Guarded prognosis because of multiple complex medical issues. Further recommendations to follow. MMODL / IJN: [id number] /
[2017-10-10] MEDS: PIPERACILLIN-TAZOBACTAM 3.375 GM in DEXTROSE/WATER 1 50ML.BAG IVPB SCH ×5 (00:29→23:39)
[2017-10-10] MEDS: VANCOMYCIN 1,750 MG in SODIUM CHLORIDE 0.9% 250 ML IVPB SCH ×3 (00:30→19:45)
[2017-10-10] MEDS: SODIUM CHLORIDE 0.9% 1,000 ML IV SCH (00:45)
[2017-10-10 07:10] LABS: Basophils % (A) 0 %; Eosinophils # (A) 0.1 k/uL (0-0.7); Eosinophils % (A) 1 %; HCT 42.6 % (39.0-53.0); Lymphocytes # (A) 1.3 k/uL (1.0-4.8); Lymphocytes % (A) 19 %; MCH 29.2 pg (25.0-35.0); MCHC 30.6 g/dL (31.0-37.0); MCV 95.5 fL (80.0-100.0); Mean Platelet Volume 8.1; Monocytes # (A) 0.5 k/uL (0-1.0); Monocytes % (A) 6 %; Neutrophils % (A) 71 %; Platelet Count 202 k/uL (150-450); RBC 4.46 m/uL (4.30-5.90); RDW 15.1 % (11.5-15.5); WBC 7.1 k/uL (3.8-10.6)
[2017-10-10] MEDS: ACETAMINOPHEN TAB 325 MG TAB PO PRN (07:15)
[2017-10-10 07:34] LABS: Anion Gap 9 mmol/L; Blood Urea Nitrogen 22 mg/dL (9-20); Carbon Dioxide 29 mmol/L (22-30); Chloride 101 mmol/L (98-107); Glucose 134 mg/dL (74-99); Potassium 4.5 mmol/L (3.5-5.1); Sodium 139 mmol/L (137-145)
[2017-10-10 07:49] LABS: Glucose,Whole Blood 161 mg/dL (75-99)
[2017-10-10] MEDS: CARVEDILOL 6.25 MG TAB PO SCH ×2 (08:15→17:56)
[2017-10-10] MEDS: PANTOPRAZOLE 40 MG TABLET PO SCH (08:15)
[2017-10-10] MEDS: CLOPIDOGREL 75 MG TAB PO SCH (08:15)
[2017-10-10] MEDS: ASPIRIN 81 MG PO SCH (08:15)
[2017-10-10] MEDS: INSULIN ASPART 100 UNIT/ML 1 ML 10 ML VIAL SQ SCH ×4 (08:15→21:15)
[2017-10-10] MEDS: MULTIVITAMINS, THERA 1 EACH TAB PO SCH (08:15)
[2017-10-10] MEDS: HEPARIN SODIUM,PORCINE 5,000 UNIT/ML 1 ML VIAL SQ SCH ×2 (08:16→21:15)
[2017-10-10 11:38] LABS: Glucose,Whole Blood 197 mg/dL (75-99)
--- NOTE | 2017-10-10 15:54 | PN ---
PROGRESS NOTE DATE OF SERVICE: 10/10/2017 This 62-year-old gentleman who was admitted with acute diabetic foot ulcer and osteomyelitis is being closely monitored. No chest pain. No palpitations. No fever. PHYSICAL EXAM: Alert and oriented x3. Pulse 54, blood pressure 140/83, respirations 16, temperature 98 degrees, pulse ox 98% on room air. HEENT: Conjunctivae normal. NECK: No jugular venous distention. CARDIOVASCULAR: S1, S2. RESPIRATORY: Breath sounds diminished in the bases. A few scattered rhonchi and crackles. ABDOMEN: Soft, nontender. No mass. LEGS: Right foot diabetic ulcer. NERVOUS SYSTEM: No system focal deficits. LABS: CBC within normal limits. Glucose 134. ASSESSMENT: 1. Acute diabetic foot ulcer on the right side with diabetic foot ulcer and osteomyelitis. 2. Diabetes mellitus type 2. 3. Hypertension. 4. Hyperlipidemia. 5. History of myocardial infarction. 6. History of noncompliance. 7. History of cerebrovascular accident, transient ischemic attack. RECOMMENDATIONS AND DISCUSSION: I recommend to continue current management and symptomatic treatment. Otherwise diabetic medication. I would recommend the hemoglobin A1c is 6.5. I recommend continue the current medications, continue with symptomatic treatment. Initiate metformin. Otherwise closely follow with Vascular Surgery and as well as infectious Disease. Further recommendations to follow. MMODL / IJN: [id number] /
[2017-10-10 17:07] LABS: Glucose,Whole Blood 198 mg/dL (75-99)
[2017-10-10] MEDS: metFORMIN 500 MG TAB PO SCH (17:52)
[2017-10-10 20:22] LABS: Glucose,Whole Blood 230 mg/dL (75-99)
--- NOTE | 2017-10-10 23:52 | P.PN ---
Subjective Progress Note Date: 10/10/17 Principal diagnosis: Diabetic foot ulcer 62-year-old male who has quite a protracted past medical history relates that earlier this year he has significant chest pain and apparently had an acute myocardial infarction. He was resuscitated and transferred to this facility. He underwent cardiac catheterization and stent placement into his LAD and circumflex. He relates to a very convoluted story as to his post cardiac catheterization follow-up. Eventually relating that he was so frustrated with his ability to have follow-up that he simply stopped follow-up. Given relates that he was taking all these medications. He was driving and had a sudden change in his vision. Fortunately he was with another person and they were able to take over the driving. After several hours his vision improved. He blamed his medications and the visual change and stopped taking them including his aspirin and Plavix. He relates he attempted to have follow- up with his physicians but again had a convoluted story as to why he could not have follow-up. As to the ulcer of his right great toe it's been present for quite some time. He's been cared for by the wound center close to his home has also been seen by vascular surgery. It is important time even offered an amputation to allow it to heal and he simply stopped follow-up. He did have a significant dermatitis to his left foot in the past that was apparently steroid responsive and treated by Dr. Wheat in [place]. Patient is now sought care probably because he was having some recurrent chest pain which is now better, as well as the pain in his right groin for which cause worry to his entire leg. Patient still feels poorly. However the blood sugars are starting to improve since coming Hospital dietary restraints and diabetic therapy. Patient remains concerned about the sedating infection to the right great toe. Continues to have some foul drainage. Objective - Vital Signs Vital signs: Vital Signs Temp 98.0 F 10/10/17 19:31 Pulse 61 10/10/17 19:31 Resp 19 10/10/17 20:05 BP 142/73 10/10/17 21:11 Pulse Ox 96 10/10/17 19:31 Intake & Output 10/10/17 10/10/17 10/11/17 06:59 18:59 06:59 Intake Total 250 Output Total 600 450 Balance -600 250 -450 Intake: Intake, IV Titration 250 Amount Vancomycin 1,750 mg In 250 Sodium Chloride 0.9% 250 ml @ 125 mls/hr IVPB Q12HR@0600,1800 [facility] Rx#: [id number] Output: Urine 600 450 Other: Voiding Method Toilet # Voids 2 1 - Exam HEENT: Anicteric conjunctiva are pink and moist nasal mucosa grossly intact without significant lesions, there is no thrush. Neck: The neck is supple without significant lymphadenopathy or thyromegaly. Lungs: Good bilateral air entry without significant crackles or wheezing. There is no significant bronchial sounds. There is no egophony or dullness. Heart: Regular rate and rhythm with an audible S1-S2, no S3 no S4. There is no significant murmur click or rub, PMI was nondisplaced. Abdomen: Positive bowel sounds soft and nontender without palpable masses or organomegaly. There was no guarding or rebound. Extremities: The upper extremities have excellent pulses they are symmetric, no significant petechiae or telangiectasia. No splinter hemorrhages were noted. Left foot without any specific open lesions. Has chronic skin discoloration of the left leg especially pretibial area. The foot is cool to touch but not cold. Right lower extremity shows evidence of some warmth and erythema. Chronic swelling to the great toe area. Chronic ulceration with thickened callus. Plantar Ulceration is 2 x 2 with 1 cm of depth. The entire toe is very swollen and now on the dorsum there is blistering and drainage of the foul material. Neuro: Awake alert oriented to person place and time. There are no acute new gross focal sensory motor deficits. - Labs CBC & Chem 7: 10/10/17 06:44 10/10/17 06:44 Labs: Abnormal Lab Results - Last 24 Hours (Table) 10/10/17 10/10/17 10/10/17 Range/Units 06:44 06:44 07:47 MCHC 30.6 L (31.0-37.0) g/dL BUN 22 H (9-20) mg/dL Glucose 134 H (74-99) mg/dL POC Glucose (mg/dL) 161 H (75-99) mg/dL 10/10/17 10/10/17 10/10/17 Range/Units 11:36 17:03 20:10 MCHC (31.0-37.0) g/dL BUN (9-20) mg/dL Glucose (74-99) mg/dL POC Glucose (mg/dL) 197 H 198 H 230 H (75-99) mg/dL Microbiology - Last 24 Hours (Table) 10/08/17 15:19 Gram Stain - Final Foot - Right Wound Culture - Final Presumptive Staph aureus Laboratory Results WBC 7.1 k/uL (3.8-10.6) 10/10/17 06:44 RBC 4.46 m/uL (4.30-5.90) 10/10/17 06:44 Hgb 13.0 gm/dL (13.0-17.5) 10/10/17 06:44 Hct 42.6 % (39.0-53.0) 10/10/17 06:44 MCV 95.5 fL (80.0-100.0) 10/10/17 06:44 MCH 29.2 pg (25.0-35.0) 10/10/17 06:44 MCHC 30.6 g/dL (31.0-37.0) L 10/10/17 06:44 RDW 15.1 % (11.5-15.5) 10/10/17 06:44 Plt Count 202 k/uL (150-450) 10/10/17 06:44 Neutrophils % 71 % 10/10/17 06:44 Lymphocytes % 19 % 10/10/17 06:44 Monocytes % 6 % 10/10/17 06:44 Eosinophils % 1 % 10/10/17 06:44 Basophils % 0 % 10/10/17 06:44 Neutrophils # 5.0 k/uL (1.3-7.7) 10/10/17 06:44 Lymphocytes # 1.3 k/uL (1.0-4.8) 10/10/17 06:44 Monocytes # 0.5 k/uL (0-1.0) 10/10/17 06:44 Eosinophils # 0.1 k/uL (0-0.7) 10/10/17 06:44 Basophils # 0.0 k/uL (0-0.2) 10/10/17 06:44 ESR 69 mm/hr (0-15) H 10/08/17 06:33 PT 10.6 sec (9.0-12.0) 10/08/17 06:33 INR 1.1 (<1.2) 10/08/17 06:33 Sodium 139 mmol/L (137-145) 10/10/17 06:44 Potassium 4.5 mmol/L (3.5-5.1) 10/10/17 06:44 Chloride 101 mmol/L (98-107) 10/10/17 06:44 Carbon Dioxide 29 mmol/L (22-30) 10/10/17 06:44 Anion Gap 9 mmol/L 10/10/17 06:44 BUN 22 mg/dL (9-20) H 10/10/17 06:44 Creatinine 0.93 mg/dL (0.66-1.25) 10/10/17 06:44 Est GFR (MDRD) Af Amer >60 (>60 ml/min/1.73 sqM) 10/10/17 06:44 Est GFR (MDRD) Non-Af >60 (>60 ml/min/1.73 sqM) 10/10/17 06:44 Glucose 134 mg/dL (74-99) H 10/10/17 06:44 POC Glucose (mg/dL) 230 mg/dL (75-99) H 10/10/17 20:10 POC Glu [employer] ID Emily Schaffer 10/10/17 20:[address] Glu mg/dL 140 10/08/17 06:33 Hemoglobin A1c 6.5 % (4.0-6.0) H 10/08/17 06:33 Calcium 9.0 mg/dL (8.4-10.2) 10/10/17 06:44 Magnesium 2.1 mg/dL (1.6-2.3) 10/08/17 06:33 Total Bilirubin 1.1 mg/dL (0.2-1.3) 10/08/17 06:33 AST 26 U/L (17-59) 10/08/17 06:33 ALT 49 U/L (21-72) 10/08/17 06:33 Alkaline Phosphatase 106 U/L (38-126) 10/08/17 06:33 C-Reactive Protein 173.9 mg/L (<10.0) H 10/08/17 06:33 Total Protein 6.6 g/dL (6.3-8.2) 10/08/17 06:33 Albumin 3.6 g/dL (3.5-5.0) 10/08/17 06:33 Prealbumin 6.0 mg/dL (18.0-42.0) L 10/08/17 06:33 Vancomycin Trough 10.1 ug/mL 10/09/17 17:36 Random Vancomycin 6.7 ug/mL 10/08/17 06:33 Microbiology 10/08/17 15:19 Foot - Right Gram Stain - Final 10/08/17 15:19 Foot - Right Wound Culture - Final Presumptive Staph aureus Assessment and Plan (1) Osteomyelitis of right foot Current Visit: Yes Status: Acute Code(s): M86.9 - OSTEOMYELITIS, UNSPECIFIED SNOMED Code(s): 1750073076352214 (2) Diabetic ulcer of foot associated with diabetes mellitus due to underlying condition, with necrosis of bone Narrative/Plan: 62-year-old male presents to Hospital after transfer from outside hospital due to difficulties with chest pain. This is now resolved. He overs having pain to his right groin as well as swelling to the foot at the great toe with some drainage. He relates to the history of an ongoing ulceration that is from present for quite some time with evidence of peripheral vascular disease. He does related this point in time they've been offering a dictation that he refused in the past. This time the patient has the chronic diabetic ulceration likely has underlying osteomyelitis. Bone scans been requested. Cultures are obtained. Antimicrobial therapy with Zosyn and vancomycin have been started to cover the plethora of potential organisms. Local wound care with medical on he has been requested. Patient will need some type of offloading shoe or boot. He has no desire to follow-up in the wound healing Center. Relates that it's a waste of time. The bone scan is now available and shows evidence of the extensive osteomyelitis of the right great toe at the proximal phalanx and first metatarsal head. Physical exam reveals evidence of the gangrenous changes to the area with a foul drainage and extensive swelling. The patient is not convinced that he has a severe problem although he is staying in hospital at this time. We discussed that he will need to be seen by the surgeon again and a surgical plan needs to be constructed, at this time loss of the great toe to the first metatarsal head appears to be needed. Unclear if further debridement or amputation would be needed. This is presented to the patient. Unclear if he will allow any surgical intervention. Vascular surgery consult is following and will again discuss with the patient surgical intervention. I distended discussed with the patient's bony infections in people with diabetes requires outpatient intravenous antibiotic therapy for further foot and leg salvage. He seems to want to contemplate any interventions. Current Visit: Yes Status: Acute Code(s): E08.621 - DIABETES MELLITUS DUE TO UNDERLYING CONDITION W FOOT ULCER; L97.504 - NON-PRS CHRONIC ULCER OTH PRT UNSP FOOT W NECROSIS OF BONE SNOMED Code(s): 967905908 (3) Noncompliance Current Visit: No Status: Acute Code(s): Z91.19 - PATIENT'S NONCOMPLIANCE W OTH MEDICAL TREATMENT AND REGIMEN SNOMED Code(s): 8680737
[2017-10-11] MEDS: VANCOMYCIN 1,750 MG in SODIUM CHLORIDE 0.9% 250 ML IVPB SCH ×2 (06:12→18:26)
[2017-10-11 07:01] LABS: Glucose,Whole Blood 128 mg/dL (75-99)
[2017-10-11 07:05] LABS: Basophils % (A) 0 %; Eosinophils # (A) 0.1 k/uL (0-0.7); Eosinophils % (A) 2 %; HCT 39.7 % (39.0-53.0); HGB 12.8 gm/dL (13.0-17.5); Lymphocytes % (A) 18 %; MCH 29.9 pg (25.0-35.0); MCHC 32.3 g/dL (31.0-37.0); MCV 92.5 fL (80.0-100.0); Mean Platelet Volume 7.3; Monocytes # (A) 0.3 k/uL (0-1.0); Monocytes % (A) 6 %; Neutrophils # (A) 3.8 k/uL (1.3-7.7); Neutrophils % (A) 70 %; Platelet Count 219 k/uL (150-450); RBC 4.29 m/uL (4.30-5.90); RDW 13.6 % (11.5-15.5); WBC 5.4 k/uL (3.8-10.6)
[2017-10-11 07:29] LABS: Anion Gap 8 mmol/L; Blood Urea Nitrogen 23 mg/dL (9-20); Calcium 9.1 mg/dL (8.4-10.2); Carbon Dioxide 30 mmol/L (22-30); Chloride 100 mmol/L (98-107); Glucose 140 mg/dL (74-99); Potassium 4.7 mmol/L (3.5-5.1); Sodium 138 mmol/L (137-145)
[2017-10-11] MEDS: INSULIN ASPART 100 UNIT/ML 1 ML 10 ML VIAL SQ SCH ×4 (07:49→21:50)
[2017-10-11] MEDS: PANTOPRAZOLE 40 MG TABLET PO SCH (08:15)
[2017-10-11] MEDS: CARVEDILOL 6.25 MG TAB PO SCH ×2 (08:15→17:43)
[2017-10-11] MEDS: ASPIRIN 81 MG PO SCH (08:15)
[2017-10-11] MEDS: CLOPIDOGREL 75 MG TAB PO SCH (08:16)
[2017-10-11] MEDS: HEPARIN SODIUM,PORCINE 5,000 UNIT/ML 1 ML VIAL SQ SCH ×3 (08:16→21:53)
[2017-10-11] MEDS: MULTIVITAMINS, THERA 1 EACH TAB PO SCH (08:16)
[2017-10-11] MEDS: metFORMIN 500 MG TAB PO SCH ×2 (08:16→17:44)
[2017-10-11] MEDS: PIPERACILLIN-TAZOBACTAM 3.375 GM in DEXTROSE/WATER 1 50ML.BAG IVPB SCH ×2 (08:28→17:44)
[2017-10-11 11:24] LABS: Glucose,Whole Blood 256 mg/dL (75-99)
[2017-10-11 16:54] LABS: Glucose,Whole Blood 100 mg/dL (75-99)
[2017-10-11] MEDS: SODIUM CHLORIDE 0.9% 1,000 ML IV SCH (17:42)
--- NOTE | 2017-10-11 19:26 | PN ---
PROGRESS NOTE DATE OF SERVICE: 10/11/2017. INTERVAL HISTORY: This 62-year-old gentleman who was admitted with acute diabetic foot ulcer, is being closely monitored. No chest pain. No palpitations. No fever. Patient has significant history of noncompliance. EXAM: Alert and oriented x3. Pulse 54, blood pressure 143/74, respiration 20, temperature 98 degrees, pulse ox 98% on room air. HEENT: Normal. NECK: Supple. No JVD. CARDIOVASCULAR: S1 and S2 muffled. LUNGS: Breath sounds diminished at the bases. No rhonchi, no crackles. ABDOMEN: Soft, nontender. EXTREMITIES: Legs, diabetic foot on the right eye present. NERVOUS SYSTEM: No focal deficits. LABS: Accu-Cheks 128 to 250, hemoglobin 12.8, hemoglobin A1c 6.5. Cultures are showing presumptive Staph aureus. ASSESSMENT: 1. Acute diabetic ulcer on the right side with diabetic foot ulcer and osteomyelitis. 2. Diabetes type 2. 3. Hypertension. 4. Hyperlipidemia. 5. History of myocardial infarction. 6. History of noncompliance. 7. History of cerebrovascular accident, transient ischemic attack. RECOMMENDATIONS AND DISCUSSION: Recommend to continue current management and treatment. Recommend initiate small dose of insulin at this time. Otherwise, guarded prognosis because of multiple complex medical issues. Further recommendations to follow. See orders for details. Continue with antibiotics. Follow closely with Infectious Disease as well as Vascular Surgery. MMODL / IJN: [id number] /
[2017-10-11 19:46] LABS: Glucose,Whole Blood 137 mg/dL (75-99)
[2017-10-11] MEDS ORDERED: INSULIN DETEMIR 100 UNIT/ML 10 ML VIAL SQ SCH (21:00)
[2017-10-11] MEDS: ACETAMINOPHEN TAB 325 MG TAB PO PRN (22:46)
--- NOTE | 2017-10-11 23:53 | P.PN ---
Subjective Progress Note Date: 10/11/17 Principal diagnosis: Diabetic foot ulcer 62-year-old male who has quite a protracted past medical history relates that earlier this year he has significant chest pain and apparently had an acute myocardial infarction. He was resuscitated and transferred to this facility. He underwent cardiac catheterization and stent placement into his LAD and circumflex. He relates to a very convoluted story as to his post cardiac catheterization follow-up. Eventually relating that he was so frustrated with his ability to have follow-up that he simply stopped follow-up. Given relates that he was taking all these medications. He was driving and had a sudden change in his vision. Fortunately he was with another person and they were able to take over the driving. After several hours his vision improved. He blamed his medications and the visual change and stopped taking them including his aspirin and Plavix. He relates he attempted to have follow- up with his physicians but again had a convoluted story as to why he could not have follow-up. As to the ulcer of his right great toe it's been present for quite some time. He's been cared for by the wound center close to his home has also been seen by vascular surgery. It is important time even offered an amputation to allow it to heal and he simply stopped follow-up. He did have a significant dermatitis to his left foot in the past that was apparently steroid responsive and treated by Dr. Wheat in [place]. Patient is now sought care probably because he was having some recurrent chest pain which is now better, as well as the pain in his right groin for which cause worry to his entire leg. Patient still feels poorly. However the blood sugars are starting to improve since coming Hospital dietary restraints and diabetic therapy. Patient remains concerned about the sedating infection to the right great toe. Patient is showing some slight improvement today. Is wondering about his discharge plan will be. Objective - Vital Signs Vital signs: Vital Signs Temp 98 F 10/11/17 14:55 Pulse 54 L 10/11/17 14:55 Resp 20 10/11/17 16:00 BP 143/74 10/11/17 14:55 Pulse Ox 99 10/11/17 14:55 Intake & Output 10/11/17 10/11/17 10/12/17 06:59 18:59 06:59 Intake Total 50 Output Total 450 Balance -450 50 Intake: Intake, IV Titration 50 Amount Piperacillin-Tazobactam 3 50 .375 gm In Dextrose/Water 1 50ml.bag @ 12.5 mls/hr IVPB Q8HR [facility] Rx#: [id number] Output: Urine 450 Other: # Voids 1 - Exam HEENT: Anicteric conjunctiva are pink and moist nasal mucosa grossly intact without significant lesions, there is no thrush. Neck: The neck is supple without significant lymphadenopathy or thyromegaly. Lungs: Good bilateral air entry without significant crackles or wheezing. There is no significant bronchial sounds. There is no egophony or dullness. Heart: Regular rate and rhythm with an audible S1-S2, no S3 no S4. There is no significant murmur click or rub, PMI was nondisplaced. Abdomen: Positive bowel sounds soft and nontender without palpable masses or organomegaly. There was no guarding or rebound. Extremities: The upper extremities have excellent pulses they are symmetric, no significant petechiae or telangiectasia. No splinter hemorrhages were noted. Left foot without any specific open lesions. Has chronic skin discoloration of the left leg especially pretibial area. The foot is cool to touch but not cold. Right lower extremity shows evidence of improvement of the erythema that was on the thigh improvement of the significant discomfort into the right groin where there was enlarged lymph node. Chronic swelling to the great toe area. Chronic ulceration with thickened callus. Plantar Ulceration is 2 x 2 with 1 cm of depth. The entire toe is very swollen and now on the dorsum there is blistering and drainage of the foul material. There is less drainage today. Neuro: Awake alert oriented to person place and time. There are no acute new gross focal sensory motor deficits. - Labs CBC & Chem 7: 10/11/17 06:36 10/11/17 06:36 Labs: Abnormal Lab Results - Last 24 Hours (Table) 10/11/17 10/11/17 10/11/17 Range/Units 06:36 06:36 06:58 RBC 4.29 L (4.30-5.90) m/uL Hgb 12.8 L (13.0-17.5) gm/dL BUN 23 H (9-20) mg/dL Glucose 140 H (74-99) mg/dL POC Glucose (mg/dL) 128 H (75-99) mg/dL 10/11/17 10/11/17 10/11/17 Range/Units 11:22 16:52 19:43 RBC (4.30-5.90) m/uL Hgb (13.0-17.5) gm/dL BUN (9-20) mg/dL Glucose (74-99) mg/dL POC Glucose (mg/dL) 256 H 100 H 137 H (75-99) mg/dL Microbiology - Last 24 Hours (Table) 10/08/17 15:19 Anaerobic Culture - Final Foot - Right Anaerobic Gm Negative Bacilli 10/08/17 15:19 Gram Stain - Final Foot - Right Wound Culture - Final Presumptive Staph aureus Laboratory Results WBC 5.4 k/uL (3.8-10.6) 10/11/17 06:36 RBC 4.29 m/uL (4.30-5.90) L 10/11/17 06:36 Hgb 12.8 gm/dL (13.0-17.5) L 10/11/17 06:36 Hct 39.7 % (39.0-53.0) 10/11/17 06:36 MCV 92.5 fL (80.0-100.0) 10/11/17 06:36 MCH 29.9 pg (25.0-35.0) 10/11/17 06:36 MCHC 32.3 g/dL (31.0-37.0) 10/11/17 06:36 RDW 13.6 % (11.5-15.5) 10/11/17 06:36 Plt Count 219 k/uL (150-450) 10/11/17 06:36 Neutrophils % 70 % 10/11/17 06:36 Lymphocytes % 18 % 10/11/17 06:36 Monocytes % 6 % 10/11/17 06:36 Eosinophils % 2 % 10/11/17 06:36 Basophils % 0 % 10/11/17 06:36 Neutrophils # 3.8 k/uL (1.3-7.7) 10/11/17 06:36 Lymphocytes # 1.0 k/uL (1.0-4.8) 10/11/17 06:36 Monocytes # 0.3 k/uL (0-1.0) 10/11/17 06:36 Eosinophils # 0.1 k/uL (0-0.7) 10/11/17 06:36 Basophils # 0.0 k/uL (0-0.2) 10/11/17 06:36 ESR 69 mm/hr (0-15) H 10/08/17 06:33 PT 10.6 sec (9.0-12.0) 10/08/17 06:33 INR 1.1 (<1.2) 10/08/17 06:33 Sodium 138 mmol/L (137-145) 10/11/17 06:36 Potassium 4.7 mmol/L (3.5-5.1) 10/11/17 06:36 Chloride 100 mmol/L (98-107) 10/11/17 06:36 Carbon Dioxide 30 mmol/L (22-30) 10/11/17 06:36 Anion Gap 8 mmol/L 10/11/17 06:36 BUN 23 mg/dL (9-20) H 10/11/17 06:36 Creatinine 0.90 mg/dL (0.66-1.25) 10/11/17 06:36 Est GFR (MDRD) Af Amer >60 (>60 ml/min/1.73 sqM) 10/11/17 06:36 Est GFR (MDRD) Non-Af >60 (>60 ml/min/1.73 sqM) 10/11/17 06:36 Glucose 140 mg/dL (74-99) H 10/11/17 06:36 POC Glucose (mg/dL) 137 mg/dL (75-99) H 10/11/17 19:43 POC Glu [employer] Commanding Officer Chastity Hicks 10/11/17 19:[address] Glu mg/dL 140 10/08/17 06:33 Hemoglobin A1c 6.5 % (4.0-6.0) H 10/08/17 06:33 Calcium 9.1 mg/dL (8.4-10.2) 10/11/17 06:36 Magnesium 2.1 mg/dL (1.6-2.3) 10/08/17 06:33 Total Bilirubin 1.1 mg/dL (0.2-1.3) 10/08/17 06:33 AST 26 U/L (17-59) 10/08/17 06:33 ALT 49 U/L (21-72) 10/08/17 06:33 Alkaline Phosphatase 106 U/L (38-126) 10/08/17 06:33 C-Reactive Protein 173.9 mg/L (<10.0) H 10/08/17 06:33 Total Protein 6.6 g/dL (6.3-8.2) 10/08/17 06:33 Albumin 3.6 g/dL (3.5-5.0) 10/08/17 06:33 Prealbumin 6.0 mg/dL (18.0-42.0) L 10/08/17 06:33 Vancomycin Trough 10.1 ug/mL 10/09/17 17:36 Random Vancomycin 6.7 ug/mL 10/08/17 06:33 Microbiology 10/08/17 15:19 Foot - Right Anaerobic Culture - Final Anaerobic Gm Negative Bacilli 10/08/17 15:19 Foot - Right Gram Stain - Final 10/08/17 15:19 Foot - Right Wound Culture - Final Presumptive Staph aureus Assessment and Plan (1) Osteomyelitis of right foot Current Visit: Yes Status: Acute Code(s): M86.9 - OSTEOMYELITIS, UNSPECIFIED SNOMED Code(s): 3436622828021217 (2) Diabetic ulcer of foot associated with diabetes mellitus due to underlying condition, with necrosis of bone Narrative/Plan: 62-year-old male presents to Hospital after transfer from outside hospital due to difficulties with chest pain. This is now resolved. He overs having pain to his right groin as well as swelling to the foot at the great toe with some drainage. He relates to the history of an ongoing ulceration that is from present for quite some time with evidence of peripheral vascular disease. He does related this point in time they've been offering a dictation that he refused in the past. This time the patient has the chronic diabetic ulceration likely has underlying osteomyelitis. Bone scans been requested. Cultures are obtained. Antimicrobial therapy with Zosyn and vancomycin have been started to cover the plethora of potential organisms. Local wound care with medical on he has been requested. Patient will need some type of offloading shoe or boot. He has no desire to follow-up in the wound healing Center. Relates that it's a waste of time. The bone scan is now available and shows evidence of the extensive osteomyelitis of the right great toe at the proximal phalanx and first metatarsal head. Physical exam reveals evidence of the gangrenous changes to the area with a foul drainage and extensive swelling. The patient is not convinced that he has a severe problem although he is staying in hospital at this time. We discussed that he will need to be seen by the surgeon again and a surgical plan needs to be constructed, at this time loss of the great toe to the first metatarsal head appears to be needed. Unclear if further debridement or amputation would be needed. This is presented to the patient. Unclear if he will allow any surgical intervention. Vascular surgery consult is following and will again discuss with the patient surgical intervention. I distended discussed with the patient's bony infections in people with diabetes requires outpatient intravenous antibiotic therapy for further foot and leg salvage. He seems to want to contemplate any interventions. At this time we await the final vascular evaluation from Dr. Gonzalez as to whether or not a surgical debridement will be occurring. If the final culture shows evidence of MSSA and the anaerobic gram-negative bacilli given because a candidate for outpatient intravenous antibiotic therapy with ertapenem. We'll ask for a PICC line to be placed. Current Visit: Yes Status: Acute Code(s): E08.621 - DIABETES MELLITUS DUE TO UNDERLYING CONDITION W FOOT ULCER; L97.504 - NON-PRS CHRONIC ULCER OTH PRT UNSP FOOT W NECROSIS OF BONE SNOMED Code(s): 730007070 (3) Noncompliance Current Visit: No Status: Acute Code(s): Z91.19 - PATIENT'S NONCOMPLIANCE W OTH MEDICAL TREATMENT AND REGIMEN SNOMED Code(s): 1135586
[2017-10-12] MEDS ORDERED: IPRATROPIUM-ALBUTEROL 3 ML NEB INHALATION SCH
[2017-10-12] MEDS: SODIUM CHLORIDE 0.9% 1,000 ML IV SCH (01:17)
[2017-10-12] MEDS: PIPERACILLIN-TAZOBACTAM 3.375 GM in DEXTROSE/WATER 1 50ML.BAG IVPB SCH ×3 (01:18→16:02)
[2017-10-12] MEDS ORDERED: VANCOMYCIN TROUGH DUE 1 EACH MISC MISCELLANE ONE (05:00)
[2017-10-12 05:45] LABS: Basophils % (A) 1 %; Eosinophils # (A) 0.1 k/uL (0-0.7); Eosinophils % (A) 2 %; HCT 39.9 % (39.0-53.0); HGB 12.9 gm/dL (13.0-17.5); Lymphocytes # (A) 1.4 k/uL (1.0-4.8); Lymphocytes % (A) 27 %; MCH 29.8 pg (25.0-35.0); MCHC 32.3 g/dL (31.0-37.0); MCV 92.4 fL (80.0-100.0); Mean Platelet Volume 8.3; Monocytes # (A) 0.3 k/uL (0-1.0); Monocytes % (A) 6 %; Neutrophils # (A) 3.1 k/uL (1.3-7.7); Neutrophils % (A) 60 %; Platelet Count 234 k/uL (150-450); RBC 4.32 m/uL (4.30-5.90); RDW 14.6 % (11.5-15.5); WBC 5.2 k/uL (3.8-10.6)
[2017-10-12 05:57] LABS: Anion Gap 8 mmol/L; Blood Urea Nitrogen 22 mg/dL (9-20); Calcium 9.6 mg/dL (8.4-10.2); Carbon Dioxide 33 mmol/L (22-30); Chloride 102 mmol/L (98-107); Glucose 118 mg/dL (74-99); Potassium 5.1 mmol/L (3.5-5.1); Sodium 143 mmol/L (137-145)
[2017-10-12] MEDS: VANCOMYCIN 1,750 MG in SODIUM CHLORIDE 0.9% 250 ML IVPB SCH (06:58)
[2017-10-12] MEDS: metFORMIN 500 MG TAB PO SCH ×2 (07:45→17:52)
[2017-10-12] MEDS: PANTOPRAZOLE 40 MG TABLET PO SCH (07:45)
[2017-10-12] MEDS: CLOPIDOGREL 75 MG TAB PO SCH (07:45)
[2017-10-12] MEDS: HEPARIN SODIUM,PORCINE 5,000 UNIT/ML 1 ML VIAL SQ SCH ×2 (07:46→22:27)
[2017-10-12] MEDS: CARVEDILOL 6.25 MG TAB PO SCH ×2 (07:46→15:26)
[2017-10-12] MEDS: INSULIN ASPART 100 UNIT/ML 1 ML 10 ML VIAL SQ SCH ×3 (07:46→17:31)
[2017-10-12 07:47] LABS: Glucose,Whole Blood 95 mg/dL (75-99)
[2017-10-12] MEDS: MULTIVITAMINS, THERA 1 EACH TAB PO SCH (07:47)
[2017-10-12] MEDS: ASPIRIN 81 MG PO SCH (08:52)
[2017-10-12 11:12] LABS: Glucose,Whole Blood 251 mg/dL (75-99)
[2017-10-12] MEDS: IPRATROPIUM-ALBUTEROL 3 ML NEB INHALATION PRN (14:52)
[2017-10-12 17:09] LABS: Glucose,Whole Blood 96 mg/dL (75-99)
--- NOTE | 2017-10-12 17:24 | PN ---
PROGRESS NOTE This is a 62-year-old gentleman. Today I see him again and patient has infected gangrene right foot big toe and wound on the plantar aspect which is chronic in nature. The patient had a bone scan which showed osteomyelitis of the right foot big toe and head of the metatarsal bone and there are skin changes noted on this area and this foul drainage from that right foot big toe. I have discussed the case with Dr. Gerardo Sol and we both agree that patient needs a ray amputation of the right foot big toe. We have discussed risks and complication of the surgery that include, nonhealing and possibility of the second toe amputation and patient agrees to go for amputation of the right foot big toe. We will proceed tomorrow. MMODL / IJN: [id number] /
[2017-10-12] MEDS: VANCOMYCIN 2,000 MG in SODIUM CHLORIDE 0.9% 500 ML IVPB SCH (17:52)
[2017-10-12 19:56] LABS: Glucose,Whole Blood 136 mg/dL (75-99)
[2017-10-12] MEDS ORDERED: INSULIN DETEMIR 100 UNIT/ML 10 ML VIAL SQ SCH (21:00)
--- NOTE | 2017-10-12 21:09 | PN ---
PROGRESS NOTE DATE OF SERVICE: 10/12/2017 This 62-year-old gentleman who was admitted after acute diabetic ulcer of the right foot and diabetic foot is being closely monitored. PICC line and antibiotic treatment is suggested. The patient is picking a primary physician, in the [place] area. No chest pain. No palpitations. No fever. Right big toe amputation has been recommended by Dr. Gonzalez. PHYSICAL EXAM: Alert and oriented x3. Pulse 55, blood pressure 149/70, respirations 18, temperature 97.8, pulse ox 98% room air. HEENT: Conjunctivae normal. Neck: No jugular venous distention. Cardiovascular: S1, S2 muffled. Respiratory: Breath sounds diminished in the bases. No rhonchi and no crackles. ABDOMEN: Soft, nontender. Legs: Significant diabetic foot on the right leg. Central nervous system: No focal deficits. LABS: WBC 5.8, hemoglobin 12.9, glucose 118 and 251. ASSESSMENT: 1. Acute diabetic ulcer on the right side with diabetic foot and as well as osteomyelitis. 2. Diabetes type 2, newly detected. 3. Hypertension. 4. Hyperlipidemia. 5. History of myocardial infarction. 6. History of noncompliance. 7. History of cerebrovascular accident, transient ischemic attack. RECOMMENDATIONS AND DISCUSSION: I recommend to continue current management and recommend symptomatic treatment. Increase the dose of Lantus 25 units. Continue broad-spectrum IV antibiotics. DVT prophylaxis. Otherwise, possible amputation per Dr. Gonzalez. Prognosis guarded because of multiple complex medical issues. Discussed with staff. feed mill manager to arrange outpatient followup. Further recommendations to follow. MMODL / IJN: [id number] /
[2017-10-12] MEDS: ACETAMINOPHEN TAB 325 MG TAB PO PRN (22:26)
[2017-10-13] MEDS: SODIUM CHLORIDE 0.9% 1,000 ML IV SCH ×2 (00:07→23:25)
[2017-10-13] MEDS: INSULIN ASPART 100 UNIT/ML 1 ML 10 ML VIAL SQ SCH ×5 (00:07→21:22)
[2017-10-13] MEDS: PIPERACILLIN-TAZOBACTAM 3.375 GM in DEXTROSE/WATER 1 50ML.BAG IVPB SCH ×3 (00:56→17:18)
[2017-10-13] MEDS: VANCOMYCIN 2,000 MG in SODIUM CHLORIDE 0.9% 500 ML IVPB SCH ×2 (06:08→18:32)
[2017-10-13 07:04] LABS: Basophils % (A) 1 %; Eosinophils # (A) 0.1 k/uL (0-0.7); Eosinophils % (A) 2 %; HCT 42.3 % (39.0-53.0); HGB 13.6 gm/dL (13.0-17.5); Lymphocytes # (A) 1.3 k/uL (1.0-4.8); Lymphocytes % (A) 25 %; MCH 29.8 pg (25.0-35.0); MCHC 32.1 g/dL (31.0-37.0); MCV 92.6 fL (80.0-100.0); Mean Platelet Volume 7.3; Monocytes # (A) 0.3 k/uL (0-1.0); Monocytes % (A) 6 %; Neutrophils # (A) 3.4 k/uL (1.3-7.7); Neutrophils % (A) 64 %; Platelet Count 246 k/uL (150-450); RBC 4.57 m/uL (4.30-5.90); RDW 13.4 % (11.5-15.5); WBC 5.3 k/uL (3.8-10.6)
[2017-10-13 07:11] LABS: Glucose,Whole Blood 88 mg/dL (75-99)
[2017-10-13 07:23] LABS: Anion Gap 10 mmol/L; Blood Urea Nitrogen 23 mg/dL (9-20); Calcium 9.4 mg/dL (8.4-10.2); Carbon Dioxide 26 mmol/L (22-30); Chloride 106 mmol/L (98-107); Glucose 91 mg/dL (74-99); Potassium 4.6 mmol/L (3.5-5.1); Sodium 142 mmol/L (137-145)
[2017-10-13] MEDS: CARVEDILOL 6.25 MG TAB PO SCH ×2 (07:37→18:00)
[2017-10-13] MEDS: PANTOPRAZOLE 40 MG TABLET PO SCH (08:42)
[2017-10-13] MEDS: ASPIRIN 81 MG PO SCH (08:42)
[2017-10-13] MEDS: CLOPIDOGREL 75 MG TAB PO SCH (08:42)
[2017-10-13] MEDS: metFORMIN 500 MG TAB PO SCH ×2 (08:42→18:01)
[2017-10-13] MEDS: HEPARIN SODIUM,PORCINE 5,000 UNIT/ML 1 ML VIAL SQ SCH ×2 (08:45→21:32)
[2017-10-13] MEDS ORDERED: IV FLUID CONTINUATION 1,000 ML IV ONE (11:28)
[2017-10-13] MEDS ORDERED: MIDAZOLAM 2 MG/2 ML VIAL ONE (11:57)
[2017-10-13] MEDS ORDERED: LIDOCAINE 1% INJ 10MG/ML (20 ML MDV) ONE (11:57)
[2017-10-13] MEDS ORDERED: ePHEDrine SULFATE/0.9% NACL/PF 50 MG/5 ML SYRINGE IV ONE (11:57)
[2017-10-13] MEDS ORDERED: GLYCOPYRROLATE 0.2 MG/ML 2 ML VIAL ONE (11:57)
[2017-10-13] MEDS ORDERED: SUCCINYLCHOLINE CHLORIDE 100 MG/5 ML SYR IV ONE (11:57)
[2017-10-13] MEDS ORDERED: PROPOFOL 10 MG/ML 20 ML VIAL IV ONE (11:57)
[2017-10-13] MEDS ORDERED: fentaNYL (PF) 50 MCG/ML 2 ML AMP ONE (11:57)
[2017-10-13 13:27] LABS: Glucose,Whole Blood 77 mg/dL (75-99)
--- NOTE | 2017-10-13 14:16 | P.PN ---
Subjective Progress Note Date: 10/13/17 Principal diagnosis: Diabetic foot ulcer 62-year-old male who has quite a protracted past medical history relates that earlier this year he has significant chest pain and apparently had an acute myocardial infarction. He was resuscitated and transferred to this facility. He underwent cardiac catheterization and stent placement into his LAD and circumflex. He relates to a very convoluted story as to his post cardiac catheterization follow-up. Eventually relating that he was so frustrated with his ability to have follow-up that he simply stopped follow-up. Given relates that he was taking all these medications. He was driving and had a sudden change in his vision. Fortunately he was with another person and they were able to take over the driving. After several hours his vision improved. He blamed his medications and the visual change and stopped taking them including his aspirin and Plavix. He relates he attempted to have follow- up with his physicians but again had a convoluted story as to why he could not have follow-up. As to the ulcer of his right great toe it's been present for quite some time. He's been cared for by the wound center close to his home has also been seen by vascular surgery. It is important time even offered an amputation to allow it to heal and he simply stopped follow-up. He did have a significant dermatitis to his left foot in the past that was apparently steroid responsive and treated by Dr. Wheat in [place]. Patient is now sought care probably because he was having some recurrent chest pain which is now better, as well as the pain in his right groin for which cause worry to his entire leg. Patient still feels poorly. However the blood sugars are starting to improve since coming Hospital dietary restraints and diabetic therapy. Amputation has occured of the infected site Objective - Vital Signs Vital signs: Vital Signs Temp 97.0 F L 10/13/17 13:21 Pulse 67 10/13/17 13:51 Resp 20 10/13/17 13:51 BP 142/77 10/13/17 13:51 Pulse Ox 98 10/13/17 13:51 Intake & Output 10/12/17 10/13/17 10/13/17 18:59 06:59 18:59 Intake Total 900 300 Output Total 15 Balance 900 285 Weight 106.141 kg Intake: IV 300 Oral 900 Output: Estimated Blood Loss 15 Other: Voiding Method Toilet Toilet # Voids 2 1 - Exam HEENT: Anicteric conjunctiva are pink and moist nasal mucosa grossly intact without significant lesions, there is no thrush. Neck: The neck is supple without significant lymphadenopathy or thyromegaly. Lungs: Good bilateral air entry without significant crackles or wheezing. There is no significant bronchial sounds. There is no egophony or dullness. Heart: Regular rate and rhythm with an audible S1-S2, no S3 no S4. There is no significant murmur click or rub, PMI was nondisplaced. Abdomen: Positive bowel sounds soft and nontender without palpable masses or organomegaly. There was no guarding or rebound. Extremities: The upper extremities have excellent pulses they are symmetric, no significant petechiae or telangiectasia. No splinter hemorrhages were noted. Left foot without any specific open lesions. Has chronic skin discoloration of the left leg especially pretibial area. The foot is cool to touch but not cold. Right lower extremity shows evidence of improvement of the erythema that was on the thigh improvement of the significant discomfort into the right groin where there was enlarged lymph node. Post op dressing not removed. Neuro: post op sedated - Labs CBC & Chem 7: 10/13/17 06:38 10/13/17 06:38 Labs: Abnormal Lab Results - Last 24 Hours (Table) 10/12/17 10/13/17 Range/Units 19:50 06:38 BUN 23 H (9-20) mg/dL POC Glucose (mg/dL) 136 H (75-99) mg/dL Microbiology - Last 24 Hours (Table) 10/08/17 15:19 Gram Stain - Final Foot - Right Wound Culture - Final Presumptive Staph aureus Laboratory Results WBC 5.3 k/uL (3.8-10.6) 10/13/17 06:38 RBC 4.57 m/uL (4.30-5.90) 10/13/17 06:38 Hgb 13.6 gm/dL (13.0-17.5) 10/13/17 06:38 Hct 42.3 % (39.0-53.0) 10/13/17 06:38 MCV 92.6 fL (80.0-100.0) 10/13/17 06:38 MCH 29.8 pg (25.0-35.0) 10/13/17 06:38 MCHC 32.1 g/dL (31.0-37.0) 10/13/17 06:38 RDW 13.4 % (11.5-15.5) 10/13/17 06:38 Plt Count 246 k/uL (150-450) 10/13/17 06:38 Neutrophils % 64 % 10/13/17 06:38 Lymphocytes % 25 % 10/13/17 06:38 Monocytes % 6 % 10/13/17 06:38 Eosinophils % 2 % 10/13/17 06:38 Basophils % 1 % 10/13/17 06:38 Neutrophils # 3.4 k/uL (1.3-7.7) 10/13/17 06:38 Lymphocytes # 1.3 k/uL (1.0-4.8) 10/13/17 06:38 Monocytes # 0.3 k/uL (0-1.0) 10/13/17 06:38 Eosinophils # 0.1 k/uL (0-0.7) 10/13/17 06:38 Basophils # 0.0 k/uL (0-0.2) 10/13/17 06:38 ESR 69 mm/hr (0-15) H 10/08/17 06:33 PT 10.6 sec (9.0-12.0) 10/08/17 06:33 INR 1.1 (<1.2) 10/08/17 06:33 Sodium 142 mmol/L (137-145) 10/13/17 06:38 Potassium 4.6 mmol/L (3.5-5.1) 10/13/17 06:38 Chloride 106 mmol/L (98-107) 10/13/17 06:38 Carbon Dioxide 26 mmol/L (22-30) 10/13/17 06:38 Anion Gap 10 mmol/L 10/13/17 06:38 BUN 23 mg/dL (9-20) H 10/13/17 06:38 Creatinine 0.83 mg/dL (0.66-1.25) 10/13/17 06:38 Est GFR (MDRD) Af Amer >60 (>60 ml/min/1.73 sqM) 10/13/17 06:38 Est GFR (MDRD) Non-Af >60 (>60 ml/min/1.73 sqM) 10/13/17 06:38 Glucose 91 mg/dL (74-99) 10/13/17 06:38 POC Glucose (mg/dL) 77 mg/dL (75-99) 10/13/17 13:25 POC Glu Telephonic Case Manager ID Katty Marie 10/13/17 13:[address] Glu mg/dL 140 10/08/17 06:33 Hemoglobin A1c 6.5 % (4.0-6.0) H 10/08/17 06:33 Calcium 9.4 mg/dL (8.4-10.2) 10/13/17 06:38 Magnesium 2.1 mg/dL (1.6-2.3) 10/08/17 06:33 Total Bilirubin 1.1 mg/dL (0.2-1.3) 10/08/17 06:33 AST 26 U/L (17-59) 10/08/17 06:33 ALT 49 U/L (21-72) 10/08/17 06:33 Alkaline Phosphatase 106 U/L (38-126) 10/08/17 06:33 C-Reactive Protein 173.9 mg/L (<10.0) H 10/08/17 06:33 Total Protein 6.6 g/dL (6.3-8.2) 10/08/17 06:33 Albumin 3.6 g/dL (3.5-5.0) 10/08/17 06:33 Prealbumin 6.0 mg/dL (18.0-42.0) L 10/08/17 06:33 Vancomycin Trough 13.7 ug/mL 10/12/17 05:21 Random Vancomycin 6.7 ug/mL 10/08/17 06:33 Microbiology 10/08/17 15:19 Foot - Right Gram Stain - Final 10/08/17 15:19 Foot - Right Wound Culture - Final Presumptive Staph aureus 10/08/17 15:19 Foot - Right Anaerobic Culture - Final Anaerobic Gm Negative Bacilli Assessment and Plan (1) Osteomyelitis of right foot Current Visit: Yes Status: Acute Code(s): M86.9 - OSTEOMYELITIS, UNSPECIFIED SNOMED Code(s): 8769948717443849 (2) Diabetic ulcer of foot associated with diabetes mellitus due to underlying condition, with necrosis of bone Narrative/Plan: 62-year-old male presents to Hospital after transfer from outside hospital due to difficulties with chest pain. This is now resolved. He overs having pain to his right groin as well as swelling to the foot at the great toe with some drainage. He relates to the history of an ongoing ulceration that is from present for quite some time with evidence of peripheral vascular disease. He does related this point in time they've been offering a dictation that he refused in the past. This time the patient has the chronic diabetic ulceration likely has underlying osteomyelitis. Bone scans been requested. Cultures are obtained. Antimicrobial therapy with Zosyn and vancomycin have been started to cover the plethora of potential organisms. Local wound care with medical on he has been requested. Patient will need some type of offloading shoe or boot. He has no desire to follow-up in the wound healing Center. Relates that it's a waste of time. The bone scan is now available and shows evidence of the extensive osteomyelitis of the right great toe at the proximal phalanx and first metatarsal head. Physical exam reveals evidence of the gangrenous changes to the area with a foul drainage and extensive swelling. The patient is not convinced that he has a severe problem although he is staying in hospital at this time. We discussed that he will need to be seen by the surgeon again and a surgical plan needs to be constructed, at this time loss of the great toe to the first metatarsal head appears to be needed. Unclear if further debridement or amputation would be needed. This is presented to the patient. Unclear if he will allow any surgical intervention. Vascular surgery consult is following and will again discuss with the patient surgical intervention. I distended discussed with the patient's bony infections in people with diabetes requires outpatient intravenous antibiotic therapy for further foot and leg salvage. If the final culture shows evidence of MSSA and the anaerobic gram-negative bacilli given because a candidate for outpatient intravenous antibiotic therapy with ertapenem. We'll ask for a PICC line to be placed. Great toe amputation has occurred. Current Visit: Yes Status: Acute Code(s): E08.621 - DIABETES MELLITUS DUE TO UNDERLYING CONDITION W FOOT ULCER; L97.504 - NON-PRS CHRONIC ULCER OTH PRT UNSP FOOT W NECROSIS OF BONE SNOMED Code(s): 888304927 (3) Noncompliance Current Visit: No Status: Acute Code(s): Z91.19 - PATIENT'S NONCOMPLIANCE W OTH MEDICAL TREATMENT AND REGIMEN SNOMED Code(s): 5184049
--- NOTE | 2017-10-13 14:28 | OP ---
OPERATIVE REPORT SURGEON: Elbert Gonzalez MD. PREOPERATIVE DIAGNOSES: 1. Chronic wound right foot plantar aspect, 3 x 2 x 1 cm. 2. Infected gangrene involving the right foot big toe with extensive callus formation noted on the plantar aspect of the foot. POSTOPERATIVE DIAGNOSIS: OPERATION:: Amputation of the right foot big toe including the head of the first metatarsal and excision of the callus around the plantar aspect of the foot along the incision line. ESTIMATED BLOOD LOSS: SPECIMEN TAKEN: DESCRIPTION OF THE PROCEDURE: This patient was brought to the operating room. Under general anesthesia, right foot was prepped and draped in the usual sterile manner. This gentleman has a longstanding history of chronic wound right lower foot plantar aspect then he developed wet gangrene with osteomyelitis of the big toe. The patient was prepped and draped in usual sterile manner. Incision was made at the head of the first metatarsal. We went circumferentially around the anterior and posterior aspect of the foot and this incision was extended where there was a chronic wound on the plantar aspect with excessive callus formation noted. This incision was deepened through the fascia and the tendons were divided on the dorsal aspect of the foot and also on the plantar aspect of the foot. Then using periosteum elevator, we elevated the periosteum from the head of the first metatarsal bone and using hand or saw, we divided the head of first metatarsal bone. Because this gangrene was extending to the dorsum aspect of the foot and there was some skin necrosis noted also on the dorsum and plantar aspect of the foot. Then after dividing the head of the metatarsal bone, we the right foot big toe. By using sharp knife, we divided the attachment. Specimen was removed. There were some bleeding points which were electrocoagulated and suture ligated. It was difficult to cover the of flap and along the line. The wound was copiously irrigated with hydrogen peroxide and saline. First we approximated the fascia with 0 Vicryl and then skin was approximated with 0 nylon with mattress interrupted suture. Dressings were applied and the patient was transferred to the recovery room in satisfactory condition. MMODL / IJN: [id number] /
[2017-10-13] MEDS: MULTIVITAMINS, THERA 1 EACH TAB PO SCH (14:43)
[2017-10-13 17:14] LABS: Glucose,Whole Blood 97 mg/dL (75-99)
[2017-10-13] MEDS: MORPHINE SULFATE 5 MG/ML SYRINGE IVP PRN (18:01)
--- NOTE | 2017-10-13 18:55 | PN ---
PROGRESS NOTE DATE OF SERVICE: 10/13/2017. INTERVAL HISTORY: This 62-year-old gentleman who was admitted with acute diabetic ulcer on the right side, also had diabetic foot and osteomyelitis. The patient is slated to have amputation today by Dr. Gonzalez. No chest pain. No palpitations. No fever. EXAM: Alert and oriented x3. Pulse 65, blood pressure 150/68, respiration 20, temperature normal, pulse ox 97% on 2 L. HEENT: Conjunctivae normal. Neck: No jugular venous distention. Cardiovascular: S1, S2 muffled. Respiratory: Breath sounds diminished in the bases. No rhonchi. No crackles. Abdomen is soft. Nontender. Legs status post surgery. Central nervous system: No focal deficits. LABORATORY DATA: CBC BMP within normal limits. ASSESSMENT: 1. Acute diabetic ulcer of the right foot and as well as osteomyelitis status post amputation of the right big toe including the head of the 1st metatarsal and excision of the callus around the plantar aspect of the foot along the incision line. 2. Diabetes type 2, newly detected uncontrolled. 3. Hypertension. 4. Hyperlipidemia. 5. History of myocardial infarction. 6. History of noncompliance. 7. History of cerebrovascular accident, transient ischemic attack. RECOMMENDATIONS AND DISCUSSION: Recommend to continue current management. Continue symptomatic treatment. Continue with monitoring. At this time the blood sugar appears to be better controlled at this time. We will continue to monitor. Otherwise the patient is currently on Levemir 25 units. We will cut down the dose to 15 units since the amputation and infection is probably better controlled and continue to monitor. Otherwise prognosis guarded because of multiple complex medical issues and further recommendations to follow. MMODL / IJN: [id number] /
[2017-10-13 21:24] LABS: Glucose,Whole Blood 113 mg/dL (75-99)
[2017-10-13] MEDS: traMADol 50 MG TAB PO SCH ×2 (21:31→23:23)
[2017-10-13] MEDS: INSULIN DETEMIR 100 UNIT/ML 10 ML VIAL SQ SCH (21:33)
[2017-10-14] MEDS: PIPERACILLIN-TAZOBACTAM 3.375 GM in DEXTROSE/WATER 1 50ML.BAG IVPB SCH ×3 (00:01→15:32)
[2017-10-14] MEDS: MORPHINE SULFATE 5 MG/ML SYRINGE IVP PRN (03:07)
[2017-10-14] MEDS: VANCOMYCIN 2,000 MG in SODIUM CHLORIDE 0.9% 500 ML IVPB SCH ×2 (06:06→17:13)
[2017-10-14 06:57] LABS: Glucose,Whole Blood 79 mg/dL (75-99)
[2017-10-14 07:46] LABS: Basophils % (A) 1 %; Eosinophils # (A) 0.1 k/uL (0-0.7); Eosinophils % (A) 1 %; HCT 39.7 % (39.0-53.0); HGB 12.8 gm/dL (13.0-17.5); Lymphocytes # (A) 1.6 k/uL (1.0-4.8); Lymphocytes % (A) 27 %; MCH 30.2 pg (25.0-35.0); MCHC 32.4 g/dL (31.0-37.0); MCV 93.5 fL (80.0-100.0); Mean Platelet Volume 7.2; Monocytes # (A) 0.3 k/uL (0-1.0); Monocytes % (A) 6 %; Neutrophils # (A) 3.6 k/uL (1.3-7.7); Neutrophils % (A) 63 %; Platelet Count 287 k/uL (150-450); RBC 4.25 m/uL (4.30-5.90); RDW 13.7 % (11.5-15.5); WBC 5.7 k/uL (3.8-10.6)
[2017-10-14] MEDS: INSULIN ASPART 100 UNIT/ML 1 ML 10 ML VIAL SQ SCH ×4 (07:49→21:30)
[2017-10-14 08:07] LABS: Anion Gap 9 mmol/L; Blood Urea Nitrogen 22 mg/dL (9-20); Calcium 9.2 mg/dL (8.4-10.2); Carbon Dioxide 31 mmol/L (22-30); Chloride 102 mmol/L (98-107); Glucose 76 mg/dL (74-99); Potassium 4.9 mmol/L (3.5-5.1); Sodium 142 mmol/L (137-145)
[2017-10-14] MEDS: IPRATROPIUM-ALBUTEROL 3 ML NEB INHALATION PRN (08:46)
--- NOTE | 2017-10-14 09:42 | P.PN ---
Progress Note - Text 62 old diabetic male, he came with the infected callus right foot with involving the right foot big toe wet gangrene patient went for a amputation of the right foot big toe and including head of the metatarsal bone today we have changed her dressing incision looks okay no drain noted dressing changed continue with IV antibiotic we will change her dressing on Monday
[2017-10-14] MEDS: CLOPIDOGREL 75 MG TAB PO SCH (10:03)
[2017-10-14] MEDS: CARVEDILOL 6.25 MG TAB PO SCH ×2 (10:03→16:36)
[2017-10-14] MEDS: ASPIRIN 81 MG PO SCH (10:03)
[2017-10-14] MEDS: metFORMIN 500 MG TAB PO SCH ×2 (10:03→16:36)
[2017-10-14] MEDS: HEPARIN SODIUM,PORCINE 5,000 UNIT/ML 1 ML VIAL SQ SCH ×2 (10:03→21:30)
[2017-10-14] MEDS: PANTOPRAZOLE 40 MG TABLET PO SCH (10:03)
[2017-10-14] MEDS: traMADol 50 MG TAB PO SCH ×4 (10:09→21:31)
[2017-10-14 11:32] LABS: Glucose,Whole Blood 145 mg/dL (75-99)
[2017-10-14] MEDS: MULTIVITAMINS, THERA 1 EACH TAB PO SCH (12:10)
[2017-10-14 16:47] LABS: Glucose,Whole Blood 105 mg/dL (75-99)
[2017-10-14 20:25] LABS: Glucose,Whole Blood 141 mg/dL (75-99)
[2017-10-14] MEDS: INSULIN DETEMIR 100 UNIT/ML 10 ML VIAL SQ SCH (21:30)
--- NOTE | 2017-10-14 22:47 | PN ---
PROGRESS NOTE DATE OF SERVICE: 10/14/2017 This 62-year-old gentleman admitted with ulcer on his right foot, underwent amputation of the right big toe. No chest pain. No palpitations. No fever. ECF rehab is being planned. EXAM: Alert and oriented x3. Pulse 82, blood pressure 130/69, respirations 16, temperature 97.9, pulse ox 94% on room air. HEENT: Conjunctivae normal. NECK: No jugular venous distention. CARDIOVASCULAR: S1, S2 muffled. RESPIRATORY: Breath sounds diminished in the bases. No rhonchi. No crackles. ABDOMEN: Soft, nontender. LEGS: Status post the surgery. NERVOUS SYSTEM: No focal deficits. LABS: WBC 5.6, hemoglobin is 12.8. Accu-Cheks are noted. ASSESSMENT: 1. Acute diabetic ulcer and diabetic foot on the right side with osteomyelitis, status post amputation of the right big toe, including the head of the 1st metatarsal and excision of the callus on the plantar aspect of the foot along with the incision line. 2. Diabetes mellitus type 2, newly detected and uncontrolled. 3. Hypertension. 4. Hyperlipidemia. 5. History of myocardial infarction. 6. History of noncompliance. 7. History of cerebrovascular accident, transient ischemic attack. RECOMMENDATIONS AND DISCUSSION: Recommend to continue current medical management and symptomatic treatment. Otherwise, I would recommend PT/OT evaluation and possible ECF rehab. Continue the rest of the medications. Guarded prognosis. Further recommendations to follow. MMODL / IJN: [id number] /
[2017-10-15] MEDS: PIPERACILLIN-TAZOBACTAM 3.375 GM in DEXTROSE/WATER 1 50ML.BAG IVPB SCH ×3 (00:10→17:14)
[2017-10-15] MEDS ORDERED: VANCOMYCIN TROUGH DUE 1 EACH MISC MISCELLANE ONE (05:00)
[2017-10-15] MEDS: SODIUM CHLORIDE 0.9% 1,000 ML IV SCH (05:48)
[2017-10-15] MEDS: VANCOMYCIN 2,000 MG in SODIUM CHLORIDE 0.9% 500 ML IVPB SCH ×2 (05:49→17:14)
[2017-10-15 07:32] LABS: Glucose,Whole Blood 76 mg/dL (75-99)
[2017-10-15 07:45] LABS: Glucose,Whole Blood 69 mg/dL (75-99)
[2017-10-15 07:51] LABS: Glucose,Whole Blood 117 mg/dL (75-99)
[2017-10-15 08:50] VITALS: RESP 16
[2017-10-15] MEDS: HEPARIN SODIUM,PORCINE 5,000 UNIT/ML 1 ML VIAL SQ SCH ×2 (08:50→21:17)
[2017-10-15] MEDS: metFORMIN 500 MG TAB PO SCH ×2 (08:50→17:08)
[2017-10-15] MEDS: ASPIRIN 81 MG PO SCH (08:51)
[2017-10-15] MEDS: CLOPIDOGREL 75 MG TAB PO SCH (08:51)
[2017-10-15] MEDS: PANTOPRAZOLE 40 MG TABLET PO SCH (08:51)
[2017-10-15] MEDS: INSULIN ASPART 100 UNIT/ML 1 ML 10 ML VIAL SQ SCH ×4 (08:51→21:27)
[2017-10-15] MEDS: CARVEDILOL 6.25 MG TAB PO SCH ×2 (08:51→17:08)
[2017-10-15 11:10] LABS: Glucose,Whole Blood 164 mg/dL (75-99)
[2017-10-15] MEDS: traMADol 50 MG TAB PO SCH ×4 (11:28→19:01)
[2017-10-15] MEDS: MULTIVITAMINS, THERA 1 EACH TAB PO SCH (14:02)
[2017-10-15 17:05] LABS: Glucose,Whole Blood 118 mg/dL (75-99)
[2017-10-15 20:27] LABS: Glucose,Whole Blood 193 mg/dL (75-99)
[2017-10-15] MEDS: INSULIN DETEMIR 100 UNIT/ML 10 ML VIAL SQ SCH (21:19)
[2017-10-15 21:39] LABS: Glucose,Whole Blood 148 mg/dL (75-99)
[2017-10-16] MEDS: PIPERACILLIN-TAZOBACTAM 3.375 GM in DEXTROSE/WATER 1 50ML.BAG IVPB SCH ×4 (00:45→23:36)
[2017-10-16] MEDS: traMADol 50 MG TAB PO SCH ×5 (00:46→21:37)
[2017-10-16] MEDS: SODIUM CHLORIDE 0.9% 1,000 ML IV SCH ×2 (00:46→23:34)
[2017-10-16] MEDS: VANCOMYCIN 2,000 MG in SODIUM CHLORIDE 0.9% 500 ML IVPB SCH ×2 (05:23→18:11)
[2017-10-16 07:08] LABS: Glucose,Whole Blood 100 mg/dL (75-99)
[2017-10-16] MEDS: metFORMIN 500 MG TAB PO SCH ×2 (07:54→18:11)
[2017-10-16] MEDS: INSULIN ASPART 100 UNIT/ML 1 ML 10 ML VIAL SQ SCH ×4 (07:54→20:40)
[2017-10-16] MEDS: CARVEDILOL 6.25 MG TAB PO SCH ×2 (07:54→18:11)
[2017-10-16] MEDS: PANTOPRAZOLE 40 MG TABLET PO SCH (07:55)
[2017-10-16] MEDS: ASPIRIN 81 MG PO SCH (07:55)
[2017-10-16] MEDS: CLOPIDOGREL 75 MG TAB PO SCH (07:55)
--- NOTE | 2017-10-16 08:43 | PN ---
PROGRESS NOTE DATE OF SERVICE: 10/15/17 This 62-year-old gentleman admitted with right diabetic foot ulcer, underwent amputation. The patient had a presumptive Staph aureus and as anaerobic gram-negative bacilli grown from the cultures. No chest pain. No palpitations. No fever. PT/OT and Social Work and Case Management is following the patient closely also for discharge planning also. EXAM: Pulse 51, blood pressure 128/70, respirations 16, temperature 98.7, pulse ox 98% on room air. HEENT conjunctivae normal. Neck is no jugular venous distention. Cardiovascular: S1, S2 muffled. Respirations: Breath sounds diminished in the bases. Scattered rhonchi and crackles. ABDOMEN: Soft, nontender. Legs status post surgery. Nervous system: No focal deficits. LABS: Accu-Cheks 69, 117, 164, and 118. ASSESSMENT: 1. Acute diabetic ulcer and diabetic foot on the right side with osteomyelitis status post amputation right big toe including the head of the 1st met past and excision of callus on the plantar aspect of the foot along with incision line. 2. Diabetes type 2. Newly detected and uncontrolled. 3. Hypertension. 4. Hyperlipidemia. 5. History of myocardial infarction. 6. History of noncompliance. 7. History of cerebrovascular accident, transient ischemic attack. RECOMMENDATIONS AND DISCUSSION: Recommend to continue current medications. Continue to monitor. PT, OT evaluation. Continue the antibiotics. Closely monitor. Possible ECF rehab. Further recommendations to follow. MMODL / IJN: [id number] /
[2017-10-16] MEDS: HEPARIN SODIUM,PORCINE 5,000 UNIT/ML 1 ML VIAL SQ SCH ×2 (09:58→20:38)
[2017-10-16 11:42] LABS: Glucose,Whole Blood 123 mg/dL (75-99)
--- NOTE | 2017-10-16 13:30 | P.PN ---
Progress Note - Text 62-year-old gentleman who had a right big toe amputation for wet gangrene and he had a chronic wound plantar aspect the right foot that was also debrided we did the primary closure patient is an IV antibiotic under care of Dr. Sol today we have changed the dressing there is some flap necrosis noted on the dorsal aspect of the incision plantar S aspect of the incision is healing we had a discussion with patient and we will try to arrange for hyperbaric for flap necrosis in the meantime we will continue with local wound dressing and IV antibiotic
[2017-10-16] MEDS ORDERED: LIDOCAINE 2% (PF) 20 MG/ML 10 ML AMP SQ ONE (14:31)
[2017-10-16] MEDS: MULTIVITAMINS, THERA 1 EACH TAB PO SCH (15:13)
[2017-10-16 17:17] LABS: Glucose,Whole Blood 193 mg/dL (75-99)
[2017-10-16 20:29] LABS: Glucose,Whole Blood 123 mg/dL (75-99)
[2017-10-16] MEDS: INSULIN DETEMIR 100 UNIT/ML 10 ML VIAL SQ SCH (20:38)
--- NOTE | 2017-10-16 22:55 | P.PN ---
Subjective Progress Note Date: 10/16/17 Principal diagnosis: Diabetic foot ulcer 62-year-old male who has quite a protracted past medical history relates that earlier this year he has significant chest pain and apparently had an acute myocardial infarction. He was resuscitated and transferred to this facility. He underwent cardiac catheterization and stent placement into his LAD and circumflex. He relates to a very convoluted story as to his post cardiac catheterization follow-up. Eventually relating that he was so frustrated with his ability to have follow-up that he simply stopped follow-up. Given relates that he was taking all these medications. He was driving and had a sudden change in his vision. Fortunately he was with another person and they were able to take over the driving. After several hours his vision improved. He blamed his medications and the visual change and stopped taking them including his aspirin and Plavix. He relates he attempted to have follow- up with his physicians but again had a convoluted story as to why he could not have follow-up. As to the ulcer of his right great toe it's been present for quite some time. He's been cared for by the wound center close to his home has also been seen by vascular surgery. It is important time even offered an amputation to allow it to heal and he simply stopped follow-up. He did have a significant dermatitis to his left foot in the past that was apparently steroid responsive and treated by Dr. Wheat in [place]. Patient is now sought care probably because he was having some recurrent chest pain which is now better, as well as the pain in his right groin for which cause worry to his entire leg. As noted the patient is now postoperative for the great toe and first metatarsal head amputation. There is evidence of some duskiness to the flap to the lateral aspect. The patient has dense neuropathy and is not having pain. Patient is denying fevers or chills is feeling somewhat better. Objective - Vital Signs Vital signs: Vital Signs Temp 98.3 F 10/16/17 07:00 Pulse 65 10/16/17 07:00 Resp 16 10/16/17 07:00 BP 170/90 10/16/17 07:00 Pulse Ox 95 10/16/17 07:00 Intake & Output 10/16/17 10/16/17 10/17/17 06:59 18:59 06:59 Output Total 400 600 Balance -400 -600 Output: Urine 400 600 Other: Voiding Method Toilet - Exam HEENT: Anicteric conjunctiva are pink and moist nasal mucosa grossly intact without significant lesions, there is no thrush. Neck: The neck is supple without significant lymphadenopathy or thyromegaly. Lungs: Good bilateral air entry without significant crackles or wheezing. There is no significant bronchial sounds. There is no egophony or dullness. Heart: Regular rate and rhythm with an audible S1-S2, no S3 no S4. There is no significant murmur click or rub, PMI was nondisplaced. Abdomen: Positive bowel sounds soft and nontender without palpable masses or organomegaly. There was no guarding or rebound. Extremities: The upper extremities have excellent pulses they are symmetric, no significant petechiae or telangiectasia. No splinter hemorrhages were noted. Left foot without any specific open lesions. Has chronic skin discoloration of the left leg especially pretibial area. The foot is cool to touch but not cold. Right lower extremity shows evidence of improvement of the erythema that was on the thigh improvement of the significant discomfort into the right groin where there was enlarged lymph node. The amputation site is intact. No bleeding. Some duskiness to the lateral aspect of the flap Neuro: Awake and alert without acute new abnormalities. - Labs CBC & Chem 7: 10/14/17 07:24 10/14/17 07:24 Labs: Abnormal Lab Results - Last 24 Hours (Table) 10/16/17 10/16/17 10/16/17 Range/Units 06:55 11:40 17:14 POC Glucose (mg/dL) 100 H 123 H 193 H (75-99) mg/dL 10/16/17 Range/Units 20:12 POC Glucose (mg/dL) 123 H (75-99) mg/dL Laboratory Results WBC 5.7 k/uL (3.8-10.6) 10/14/17 07:24 RBC 4.25 m/uL (4.30-5.90) L 10/14/17 07:24 Hgb 12.8 gm/dL (13.0-17.5) L 10/14/17 07:24 Hct 39.7 % (39.0-53.0) 10/14/17 07:24 MCV 93.5 fL (80.0-100.0) 10/14/17 07:24 MCH 30.2 pg (25.0-35.0) 10/14/17 07:24 MCHC 32.4 g/dL (31.0-37.0) 10/14/17 07:24 RDW 13.7 % (11.5-15.5) 10/14/17 07:24 Plt Count 287 k/uL (150-450) 10/14/17 07:24 Neutrophils % 63 % 10/14/17 07:24 Lymphocytes % 27 % 10/14/17 07:24 Monocytes % 6 % 10/14/17 07:24 Eosinophils % 1 % 10/14/17 07:24 Basophils % 1 % 10/14/17 07:24 Neutrophils # 3.6 k/uL (1.3-7.7) 10/14/17 07:24 Lymphocytes # 1.6 k/uL (1.0-4.8) 10/14/17 07:24 Monocytes # 0.3 k/uL (0-1.0) 10/14/17 07:24 Eosinophils # 0.1 k/uL (0-0.7) 10/14/17 07:24 Basophils # 0.0 k/uL (0-0.2) 10/14/17 07:24 ESR 69 mm/hr (0-15) H 10/08/17 06:33 PT 10.6 sec (9.0-12.0) 10/08/17 06:33 INR 1.1 (<1.2) 10/08/17 06:33 Sodium 142 mmol/L (137-145) 10/14/17 07:24 Potassium 4.9 mmol/L (3.5-5.1) 10/14/17 07:24 Chloride 102 mmol/L (98-107) 10/14/17 07:24 Carbon Dioxide 31 mmol/L (22-30) H 10/14/17 07:24 Anion Gap 9 mmol/L 10/14/17 07:24 BUN 22 mg/dL (9-20) H 10/14/17 07:24 Creatinine 0.92 mg/dL (0.66-1.25) 10/14/17 07:24 Est GFR (MDRD) Af Amer >60 (>60 ml/min/1.73 sqM) 10/14/17 07:24 Est GFR (MDRD) Non-Af >60 (>60 ml/min/1.73 sqM) 10/14/17 07:24 Glucose 76 mg/dL (74-99) 10/14/17 07:24 POC Glucose (mg/dL) 123 mg/dL (75-99) H 10/16/17 20:12 POC Glu [employer] Chastity Hicks 10/16/17 20:[address] Glu mg/dL 140 10/08/17 06:33 Hemoglobin A1c 6.5 % (4.0-6.0) H 10/08/17 06:33 Calcium 9.2 mg/dL (8.4-10.2) 10/14/17 07:24 Magnesium 2.1 mg/dL (1.6-2.3) 10/08/17 06:33 Total Bilirubin 1.1 mg/dL (0.2-1.3) 10/08/17 06:33 AST 26 U/L (17-59) 10/08/17 06:33 ALT 49 U/L (21-72) 10/08/17 06:33 Alkaline Phosphatase 106 U/L (38-126) 10/08/17 06:33 C-Reactive Protein 173.9 mg/L (<10.0) H 10/08/17 06:33 Total Protein 6.6 g/dL (6.3-8.2) 10/08/17 06:33 Albumin 3.6 g/dL (3.5-5.0) 10/08/17 06:33 Prealbumin 6.0 mg/dL (18.0-42.0) L 10/08/17 06:33 Vancomycin Trough 21.3 ug/mL 10/15/17 05:02 Random Vancomycin 6.7 ug/mL 10/08/17 06:33 Microbiology 10/08/17 15:19 Foot - Right Gram Stain - Final 10/08/17 15:19 Foot - Right Wound Culture - Final Presumptive Staph aureus 10/08/17 15:19 Foot - Right Anaerobic Culture - Final Anaerobic Gm Negative Bacilli Assessment and Plan (1) Osteomyelitis of right foot Current Visit: Yes Status: Acute Code(s): M86.9 - OSTEOMYELITIS, UNSPECIFIED SNOMED Code(s): 5283418762567253 (2) Diabetic ulcer of foot associated with diabetes mellitus due to underlying condition, with necrosis of bone Narrative/Plan: 62-year-old male presents to Hospital after transfer from outside hospital due to difficulties with chest pain. This is now resolved. He overs having pain to his right groin as well as swelling to the foot at the great toe with some drainage. He relates to the history of an ongoing ulceration that is from present for quite some time with evidence of peripheral vascular disease. He does related this point in time they've been offering a dictation that he refused in the past. This time the patient has the chronic diabetic ulceration likely has underlying osteomyelitis. Bone scans been requested. Cultures are obtained. Antimicrobial therapy with Zosyn and vancomycin have been started to cover the plethora of potential organisms. Local wound care with medical on he has been requested. Patient will need some type of offloading shoe or boot. He has no desire to follow-up in the wound healing Center. Relates that it's a waste of time. The bone scan is now available and shows evidence of the extensive osteomyelitis of the right great toe at the proximal phalanx and first metatarsal head. Physical exam reveals evidence of the gangrenous changes to the area with a foul drainage and extensive swelling. The patient is not convinced that he has a severe problem although he is staying in hospital at this time. We discussed that he will need to be seen by the surgeon again and a surgical plan needs to be constructed, at this time loss of the great toe to the first metatarsal head appears to be needed. Unclear if further debridement or amputation would be needed. This is presented to the patient. Unclear if he will allow any surgical intervention. Vascular surgery consult is following and will again discuss with the patient surgical intervention. I distended discussed with the patient's bony infections in people with diabetes requires outpatient intravenous antibiotic therapy for further foot and leg salvage. If the final culture shows evidence of MSSA and the anaerobic gram-negative bacilli given because a candidate for outpatient intravenous antibiotic therapy with ertapenem. We'll ask for a PICC line to be placed. Great toe amputation has occurred, and there is some duskiness being seen in the flap. The patient is evaluated with the vascular surgeon present. Potential for hyperbaric oxygen therapy were feeling flap is discussed. After the vascular surgeon departs a long discussion occurs about hyperbaric oxygen therapy. Describing what it is, however is performed and which purposes. The patient relates that he was offered hyperbaric at another center. It is much closer to his home. He did not want it. He saw the chamber relates he can go into the chamber. The patient is educated that we can sedate him so that he is able to going to chamber with anxiolytics and most patients are able to tolerate the treatment. The patient is agitated at this thought. He has no desire for hyperbaric oxygen therapy. We discussed the hyperbaric oxygen could be the means for salvage of his foot. He seems very suspect that there will be any chance for salvage at this time. He however is willing to utilize outpatient intervenous antibiotic therapy. Current Visit: Yes Status: Acute Code(s): E08.621 - DIABETES MELLITUS DUE TO UNDERLYING CONDITION W FOOT ULCER; L97.504 - NON-PRS CHRONIC ULCER OTH PRT UNSP FOOT W NECROSIS OF BONE SNOMED Code(s): 873181898 (3) Noncompliance Current Visit: No Status: Acute Code(s): Z91.19 - PATIENT'S NONCOMPLIANCE W OTH MEDICAL TREATMENT AND REGIMEN SNOMED Code(s): 5051029
[2017-10-17] MEDS: VANCOMYCIN 2,000 MG in SODIUM CHLORIDE 0.9% 500 ML IVPB SCH (05:24)
[2017-10-17 07:13] LABS: Glucose,Whole Blood 89 mg/dL (75-99)
[2017-10-17 08:27] LABS: Anion Gap 7 mmol/L; Blood Urea Nitrogen 24 mg/dL (9-20); Calcium 9.7 mg/dL (8.4-10.2); Carbon Dioxide 33 mmol/L (22-30); Chloride 103 mmol/L (98-107); Glucose 83 mg/dL (74-99); Potassium 5.1 mmol/L (3.5-5.1); Sodium 143 mmol/L (137-145)
[2017-10-17] MEDS: INSULIN ASPART 100 UNIT/ML 1 ML 10 ML VIAL SQ SCH ×3 (09:01→17:18)
[2017-10-17] MEDS: PIPERACILLIN-TAZOBACTAM 3.375 GM in DEXTROSE/WATER 1 50ML.BAG IVPB SCH (09:02)
[2017-10-17] MEDS: PANTOPRAZOLE 40 MG TABLET PO SCH (09:02)
[2017-10-17] MEDS: metFORMIN 500 MG TAB PO SCH ×2 (09:02→17:19)
[2017-10-17] MEDS: MULTIVITAMINS, THERA 1 EACH TAB PO SCH (09:02)
[2017-10-17] MEDS: CARVEDILOL 6.25 MG TAB PO SCH ×2 (09:02→17:19)
[2017-10-17] MEDS: ASPIRIN 81 MG PO SCH (09:02)
[2017-10-17] MEDS: CLOPIDOGREL 75 MG TAB PO SCH (09:02)
[2017-10-17] MEDS: HEPARIN SODIUM,PORCINE 5,000 UNIT/ML 1 ML VIAL SQ SCH (09:03)
[2017-10-17] MEDS: traMADol 50 MG TAB PO SCH ×3 (09:05→17:20)
[2017-10-17 11:14] LABS: Glucose,Whole Blood 156 mg/dL (75-99)
--- NOTE | 2017-10-17 11:20 | PN ---
PROGRESS NOTE DATE OF SERVICE: 10/16/2017 This 62 -year-old gentleman admitted with acute diabetic foot had surgery. The patient is being planned to have IV antibiotics thru the PICC line. No chest pain. No palpitations. No fever. PT, OT are evaluating the patient for possible ECF rehab. EXAM: Pulse 59, blood pressure 140/56, respirations 16, temperature 97.7, pulse ox 93% on room air. HEENT: Conjunctivae normal. NECK: No jugular venous distention. Cardiovascular: S1, S2. Respiratory: Breath sounds diminished in the bases. A few rhonchi. No crackles. Abdomen is soft, nontender. Legs status post surgery. Central nervous system: No focal deficits. LAB STUDIES: WBC 5.6, hemoglobin 12.8, Accu-Cheks 133. ASSESSMENT: 1. Acute diabetic ulcer with diabetic foot on the right side with osteomyelitis, status post amputation of the right big toe including the head of the 1st metatarsal, status post excision of the callous on the plantar aspect of the foot along with incision line. 2. Diabetes type 2. Newly detected, uncontrolled. 3. Hypertension. 4. Hyperlipidemia. 5. History of myocardial infarction. 6. History of noncompliance. 7. History of cerebrovascular accident, transient ischemic attack. RECOMMENDATIONS AND DISCUSSION: Recommend to continue current medications, continue current management and symptomatic treatment. Otherwise, at this time, I recommend to continue with current medications. Continue with insulin. Continue to follow closely with Infectious Disease. Guarded prognosis. Further recommendations to follow. MMODL / IJN: [id number] /
--- NOTE | 2017-10-17 11:25 | IR ---
EXAMINATION TYPE: IR cvc insert >=5 years DATE OF EXAM: 10/16/2017 COMPARISON: NONE CLINICAL HISTORY: Infection Needs long-term intravenous access for antibiotics. PROCEDURE: After informed consent, the skin overlying the upper extremity vein was localized with ultrasound and noted to be compressible and patent. An ultrasound image was obtained and submitted on the patient' s chart. The overlying skin was prepped and draped and Lidocaine was used for local anesthesia. A s kin leisa was made with a scalpel. Access was gained to the vein under ultrasound guidance with a 21 gauge needle and a 0.018 inch wire was advanced. Access site was dilated with Peel-Away sheath and c atheter tailored to the appropriate length and advanced such that the distal tip is at the cavoatrial junction. Spot image was obtained verifying placement with the tip at the cavoatrial junction. Cat heter was fixed to the skin with suture and a sterile dressing was placed following hemostasis. Cath eter was aspirated and flushed with saline. Patient was discharged in stable condition without compl ication.Maximal barrier technique is utilized. Ultrasound image is documented on the chart. Ultrasou nd used with sterile technique. Fluoro time and fluoroscopic images submitted to document procedure: 194 images, 0.8 minutes fluorosc opy time IMPRESSION: STATUS POST ULTRASOUND AND FLUOROSCOPIC GUIDED PICC LINE PLACEMENT, READY FOR USE. THIS PROCEDURE WAS PERFORMED BY THE UNDERSIGNED.
[2017-10-17] MEDS: IPRATROPIUM-ALBUTEROL 3 ML NEB INHALATION PRN (11:40)
[2017-10-17] MEDS ORDERED: ERTAPENEM 1 GM in SODIUM CHLORIDE 0.9% 50 ML IVPB STA (13:57)
[2017-10-17 16:01] VITALS: BP 150/81; PULSE 74; TEMP 98
[2017-10-17 16:58] LABS: Glucose,Whole Blood 96 mg/dL (75-99)
--- NOTE | 2017-10-18 07:50 | DS ---
DISCHARGE SUMMARY FINAL DIAGNOSES: 1. Acute diabetic ulcer with diabetic foot on the right side with osteomyelitis, status post amputation of the right big toe including head of the first metatarsal, status post excision of the callus on the plantar aspect of the foot along with incision line. 2. Diabetes mellitus type 2, newly detected, uncontrolled. 3. Hypertension. 4. Hyperlipidemia. 5. History of myocardial infarction. 6. History of noncompliance. 7. History of cerebrovascular accident, transient ischemic attack. DISCHARGED DISPOSITION: The patient will be discharged in a stable condition with a guarded prognosis. HISTORY OF PRESENT ILLNESS: This is a 62-year-old gentleman with a past medical history of multiple medical problems, admitted with diabetic foot and surgery, patient amputation and the patient was seen by Infectious Disease, Dr. Sol and Dr. Gonzalez. A PICC line was inserted, IV antibiotics recommend outpatient. On exam, vital are stable. CARDIOVASCULAR SYSTEM: S1, S2. ABDOMEN: Soft. NERVOUS SYSTEM: No focal deficits. LEGS: Status post surgery on the right side. Discharge diet is consistent carb. Follow up with Dr. Cool in 2 to 3 days. Follow up with Dr. Gonzalez as well as Dr. Sol for PICC line care. Further recommendation by Dr. Gonzalez. MEDICATIONS: 1. Tylenol 500 to 1000 mg daily p.r.n. 2. Aspirin 81 mg daily. 3. Coreg 6.25 mg p.o. b.i.d. 4. Plavix 75 mg p.o. daily. 5. Invanz 1 g IV daily for 42 days. 6. Levemir 15 units subcu q.h.s. 7. Glucophage 500 mg p.o. b.i.d. 8. Accu-Cheks a.c. and at bedtime and sent to the primary physician. 9. Multivitamins 1 p.o. daily. 10.Nitrostat 0.4 mg p.r.n. 11.Protonix 40 mg daily. 12.Ultram 50 mg q. p.r.n. Once again, the patient will be discharged in a stable condition with guarded prognosis. MMODL / IJN: [id number] /
== END 2017-10-17 18:35 | disposition home health service (06) | DRG 617 ==
LOC: EC 22:16 → 3SUR 22:35
PROVIDERS: ADMIT Hospitalist; ATTEND Hospitalist
PROC: 0Y6P0Z0 Detachment at Right 1st Toe, Complete, Open Approach (ICD-10-PCS; principal; 2017-10-07)
PROC: 0JBQ0ZZ Excision of Right Foot Subcutaneous Tissue and Fascia, Open Approach (ICD-10-PCS; principal; 2017-10-07)
PROC: 02HV33Z Insertion of Infusion Device into Superior Vena Cava, Percutaneous Approach (ICD-10-PCS; 2017-10-17)
DX: E11.69 Type 2 diabetes mellitus with other specified complication (principal); I96 Gangrene, not elsewhere classified; M86.171 Other acute osteomyelitis, right ankle and foot; L97.519 Non-pressure chronic ulcer of other part of right foot with unspecified severity; E11.52 Type 2 diabetes mellitus with diabetic peripheral angiopathy with gangrene; E11.621 Type 2 diabetes mellitus with foot ulcer; E11.42 Type 2 diabetes mellitus with diabetic polyneuropathy; E78.5 Hyperlipidemia, unspecified; I10 Essential (primary) hypertension; I25.10 Atherosclerotic heart disease of native coronary artery without angina pectoris; I25.2 Old myocardial infarction; Z80.9 Family history of malignant neoplasm, unspecified; Z82.49 Family history of ischemic heart disease and other diseases of the circulatory system; Z86.73 Personal history of transient ischemic attack (TIA), and cerebral infarction without residual deficits; Z87.891 Personal history of nicotine dependence; Z91.19 Patient's noncompliance with other medical treatment and regimen; Z95.5 Presence of coronary angioplasty implant and graft; Z88.5 Allergy status to narcotic agent
CPT/HCPCS: 36569; 76937; 77001; 78315; 80048; 80053; 80202; 83036; 83735; 84134; 85025; 85610; 85652; 86140; 87070; 87075; 87205; 88305; 88311; 94640; 94760; 99284

== ENCOUNTER 2018-05-06 20:36 | Inpatient (IN) | payer MEDICARE, OTHER ==
--- NOTE | 2018-05-06 21:15 | ED ---
General Adult HPI - General Chief complaint: Recheck/Abnormal Lab/Rx Stated complaint: fever Time Seen by Provider: 05/06/18 20:38 Source: patient, EMS, RN notes reviewed Mode of arrival: EMS Limitations: physical limitation - History of Present Illness Initial comments: Patient is a pleasant 63-year-old male transferred from [facility]. Patient was reported as transferred secondary to chest pain or shortness of breath. Patient had low oxygen saturation and wheezing. Patient also was noted to have temperature 104. Borderline troponin. Patient was started on heparin and given Zosyn. Patient states he went there just because he is not been feeling well. Patient has been fatigued and shaky. Patient has had myalgias and chills. Patient states his breathing is not that bad. Patient states only mild discomfort in his chest. Patient does have history of a toe amputation around a year and a half ago. Patient states this has been doing fine recently however. - Related Data Home Medications Medication Instructions Recorded Confirmed No Known Home Medications 05/06/18 05/06/18 Allergies Allergy/AdvReac Type Severity Reaction Status Date / Time hydrocodone [From Vicodin] AdvReac Hallucinati Verified 05/06/18 20:47 ons Review of Systems ROS Statement: Those systems with pertinent positive or pertinent negative responses have been documented in the HPI. ROS Other: All systems not noted in ROS Statement are negative. Constitutional: Reports: fever, chills, weakness Eyes: Denies: eye pain ENT: Denies: ear pain Respiratory: Reports: dyspnea Cardiovascular: Reports: chest pain Endocrine: Reports: fatigue Gastrointestinal: Denies: abdominal pain Genitourinary: Denies: dysuria Musculoskeletal: Denies: back pain Skin: Denies: rash Neurological: Denies: headache Past Medical History Past Medical History: CVA/TIA, Hyperlipidemia, Hypertension, Myocardial Infarction ([place]), Skin Disorder Additional Past Medical History / Comment(s): PT IS POOR HISTORIAN-PT STATES HAS SOME BLOCKAGES IN [place]. LEGS & RT NECK- STATES FEET ARE ALWAYS ICE COLD- RT GREAT TOE HAS HOLE ,rt.foot wound. LOWER BACK PAIN ALSO. URINE FREQUENCY-UP 2- 3 X A NIGHT,. WAS ON [address] [facility]- BUT STOPPED USING THEM. PT also states he had a blockage removed from his carotid artery and that the hospital told him he had two strokes, Last Myocardial Infarction Date:: 01/18/17 History of Any Multi-Drug Resistant Organisms: None Reported Past Surgical History: Tonsillectomy Additional Past Surgical History / Comment(s): ABDOMINAL SURGERY- REMOVED FISH BONE THAT HAD PUT HOLE IN STOMACH. REPAIR OF BLOCKAGES IN RT LEG 2011,stent to heart, Right great toe removal. Past Anesthesia/Blood Transfusion Reactions: No Reported Reaction Past Psychological History: No Psychological Hx Reported Smoking Status: Current every day smoker Past Alcohol Use History: None Reported Past Drug Use History: None Reported - Past Family History Mother Family Medical History: Cancer Father Family Medical History: Myocardial Infarction ([place]) General Exam Limitations: physical limitation General appearance: alert, in no apparent distress Head exam: Present: atraumatic Eye exam: Present: normal appearance, PERRL, EOMI ENT exam: Present: normal oropharynx Neck exam: Present: normal inspection Respiratory exam: Present: normal lung sounds bilaterally Cardiovascular Exam: Present: regular rate, normal rhythm GI/Abdominal exam: Present: soft. Absent: tenderness Extremities exam: Present: normal inspection, other (Previous right great toe amputation that appears to be healing well.) Neurological exam: Present: alert Psychiatric exam: Present: normal affect, normal mood Skin exam: Present: normal color. Absent: rash Course Vital Signs 05/06/18 20:39 Temperature 98.0 F Pulse Rate 66 Respiratory 18 Rate Blood Pressure 100/58 O2 Sat by Pulse 96 Oximetry EKG Findings - EKG Comments: EKG Findings:: Normal sinus rhythm 65. GA 172. QRS 124. QT 436. QTc 453. Normal axis. Septal and inferior Q waves. Nonspecific ST-T. Medical Decision Making - Medical Decision Making Patient reevaluated and updated. Case discussed with Dr. Ford, who will admit for hospital call. He will manage antibiotics and id consult if needed. Echo and cardiology consult will be ordered. - Lab Data Result diagrams: 05/06/18 21:24 05/06/18 21:24 Lab Results 05/06/18 05/06/18 05/06/18 Range/Units 21:24 21:24 21:24 WBC 9.7 (3.8-10.6) k/uL RBC 4.87 (4.30-5.90) m/uL Hgb 14.4 (13.0-17.5) gm/dL Hct 44.6 (39.0-53.0) % MCV 91.5 (80.0-100.0) fL MCH 29.6 (25.0-35.0) pg MCHC 32.4 (31.0-37.0) g/dL RDW 15.1 (11.5-15.5) % Plt Count 146 L (150-450) k/uL Neutrophils % 91 % Lymphocytes % 5 % Monocytes % 3 % Eosinophils % 1 % Basophils % 0 % Neutrophils # 8.8 H (1.3-7.7) k/uL Lymphocytes # 0.5 L (1.0-4.8) k/uL Monocytes # 0.3 (0-1.0) k/uL Eosinophils # 0.1 (0-0.7) k/uL Basophils # 0.0 (0-0.2) k/uL PT (9.0-12.0) sec INR (<1.2) APTT (22.0-30.0) sec D-Dimer (<0.60) mg/L FEU Sodium 136 L (137-145) mmol/L Potassium 4.1 (3.5-5.1) mmol/L Chloride 106 (98-107) mmol/L Carbon Dioxide 24 (22-30) mmol/L Anion Gap 6 mmol/L BUN 19 (9-20) mg/dL Creatinine 0.90 (0.66-1.25) mg/dL Est GFR (CKD-EPI)AfAm >90 (>60 ml/min/1.73 sqM) Est GFR (CKD-EPI)NonAf 89 (>60 ml/min/1.73 sqM) Glucose 147 H (74-99) mg/dL Plasma Lactic Acid Johny (0.7-2.0) mmol/L Calcium 8.5 (8.4-10.2) mg/dL Total Bilirubin 2.2 H (0.2-1.3) mg/dL AST 20 (17-59) U/L ALT 32 (21-72) U/L Alkaline Phosphatase 70 (38-126) U/L Total Creatine Kinase 51 L (55-170) U/L CK-MB (CK-2) 0.8 (0.0-2.4) ng/mL CK-MB (CK-2) Rel Index 1.6 Troponin I 0.109 H* (0.000-0.034) ng/mL NT-Pro-B Natriuret Pep pg/mL Total Protein 6.1 L (6.3-8.2) g/dL Albumin 3.5 (3.5-5.0) g/dL Urine Color Urine Appearance (Clear) Urine pH (5.0-8.0) Ur Specific [place] (1.001-1.035) Urine Protein (Negative) Urine Glucose (UA) (Negative) Urine Ketones (Negative) Urine Blood (Negative) Urine Nitrite (Negative) Urine Bilirubin (Negative) Urine Urobilinogen (<2.0) mg/dL Ur Leukocyte Esterase (Negative) 05/06/18 05/06/18 05/06/18 Range/Units 21:24 21:24 21:24 WBC (3.8-10.6) k/uL RBC (4.30-5.90) m/uL Hgb (13.0-17.5) gm/dL Hct (39.0-53.0) % MCV (80.0-100.0) fL MCH (25.0-35.0) pg MCHC (31.0-37.0) g/dL RDW (11.5-15.5) % Plt Count (150-450) k/uL Neutrophils % % Lymphocytes % % Monocytes % % Eosinophils % % Basophils % % Neutrophils # (1.3-7.7) k/uL Lymphocytes # (1.0-4.8) k/uL Monocytes # (0-1.0) k/uL Eosinophils # (0-0.7) k/uL Basophils # (0-0.2) k/uL PT 11.0 (9.0-12.0) sec INR 1.1 (<1.2) APTT 28.0 (22.0-30.0) sec D-Dimer 0.79 H (<0.60) mg/L FEU Sodium (137-145) mmol/L Potassium (3.5-5.1) mmol/L Chloride (98-107) mmol/L Carbon Dioxide (22-30) mmol/L Anion Gap mmol/L BUN (9-20) mg/dL Creatinine (0.66-1.25) mg/dL Est GFR (CKD-EPI)AfAm (>60 ml/min/1.73 sqM) Est GFR (CKD-EPI)NonAf (>60 ml/min/1.73 sqM) Glucose (74-99) mg/dL Plasma Lactic Acid Johny 1.1 (0.7-2.0) mmol/L Calcium (8.4-10.2) mg/dL Total Bilirubin (0.2-1.3) mg/dL AST (17-59) U/L ALT (21-72) U/L Alkaline Phosphatase (38-126) U/L Total Creatine Kinase (55-170) U/L CK-MB (CK-2) (0.0-2.4) ng/mL CK-MB (CK-2) Rel Index Troponin I (0.000-0.034) ng/mL NT-Pro-B Natriuret Pep 2400 pg/mL Total Protein (6.3-8.2) g/dL Albumin (3.5-5.0) g/dL Urine Color Urine Appearance (Clear) Urine pH (5.0-8.0) Ur Specific [place] (1.001-1.035) Urine Protein (Negative) Urine Glucose (UA) (Negative) Urine Ketones (Negative) Urine Blood (Negative) Urine Nitrite (Negative) Urine Bilirubin (Negative) Urine Urobilinogen (<2.0) mg/dL Ur Leukocyte Esterase (Negative) 05/06/18 Range/Units 22:00 WBC (3.8-10.6) k/uL RBC (4.30-5.90) m/uL Hgb (13.0-17.5) gm/dL Hct (39.0-53.0) % MCV (80.0-100.0) fL MCH (25.0-35.0) pg MCHC (31.0-37.0) g/dL RDW (11.5-15.5) % Plt Count (150-450) k/uL Neutrophils % % Lymphocytes % % Monocytes % % Eosinophils % % Basophils % % Neutrophils # (1.3-7.7) k/uL Lymphocytes # (1.0-4.8) k/uL Monocytes # (0-1.0) k/uL Eosinophils # (0-0.7) k/uL Basophils # (0-0.2) k/uL PT (9.0-12.0) sec INR (<1.2) APTT (22.0-30.0) sec D-Dimer (<0.60) mg/L FEU Sodium (137-145) mmol/L Potassium (3.5-5.1) mmol/L Chloride (98-107) mmol/L Carbon Dioxide (22-30) mmol/L Anion Gap mmol/L BUN (9-20) mg/dL Creatinine (0.66-1.25) mg/dL Est GFR (CKD-EPI)AfAm (>60 ml/min/1.73 sqM) Est GFR (CKD-EPI)NonAf (>60 ml/min/1.73 sqM) Glucose (74-99) mg/dL Plasma Lactic Acid Johny (0.7-2.0) mmol/L Calcium (8.4-10.2) mg/dL Total Bilirubin (0.2-1.3) mg/dL AST (17-59) U/L ALT (21-72) U/L Alkaline Phosphatase (38-126) U/L Total Creatine Kinase (55-170) U/L CK-MB (CK-2) (0.0-2.4) ng/mL CK-MB (CK-2) Rel Index Troponin I (0.000-0.034) ng/mL NT-Pro-B Natriuret Pep pg/mL Total Protein (6.3-8.2) g/dL Albumin (3.5-5.0) g/dL Urine Color Yellow Urine Appearance Clear (Clear) Urine pH 6.0 (5.0-8.0) Ur Specific [place] 1.027 (1.001-1.035) Urine Protein Trace H (Negative) Urine Glucose (UA) Negative (Negative) Urine Ketones Trace H (Negative) Urine Blood Negative (Negative) Urine Nitrite Negative (Negative) Urine Bilirubin Negative (Negative) Urine Urobilinogen 2.0 (<2.0) mg/dL Ur Leukocyte Esterase Negative (Negative) - Radiology Data Radiology results: report reviewed (CT angios chest shows no evidence of pulmonary embolism. Atelectasis.), image reviewed (X-ray of the right foot shows prior amputation. Diffuse soft tissue swelling. Two-view chest x-ray shows no acute process.) Disposition Clinical Impression: Chest pain, Fever Disposition: ADMITTED IP TO THIS [facility] Referrals: None,Stated [Primary Care Provider] - 1-2 days Decision Time: 23:34
[2018-05-06 21:45] LABS: Basophils % (A) 0 %; Eosinophils # (A) 0.1 k/uL (0-0.7); Eosinophils % (A) 1 %; HCT 44.6 % (39.0-53.0); HGB 14.4 gm/dL (13.0-17.5); Lymphocytes # (A) 0.5 k/uL (1.0-4.8); Lymphocytes % (A) 5 %; MCH 29.6 pg (25.0-35.0); MCHC 32.4 g/dL (31.0-37.0); MCV 91.5 fL (80.0-100.0); Mean Platelet Volume 7.4; Monocytes # (A) 0.3 k/uL (0-1.0); Monocytes % (A) 3 %; Neutrophils # (A) 8.8 k/uL (1.3-7.7); Neutrophils % (A) 91 %; Platelet Count 146 k/uL (150-450); RBC 4.87 m/uL (4.30-5.90); RDW 15.1 % (11.5-15.5); WBC 9.7 k/uL (3.8-10.6)
[2018-05-06 21:49] LABS: ALT 32 U/L (21-72); AST 20 U/L (17-59); Albumin 3.5 g/dL (3.5-5.0); Alkaline Phosphatase 70 U/L (38-126); Anion Gap 6 mmol/L; Blood Urea Nitrogen 19 mg/dL (9-20); Calcium 8.5 mg/dL (8.4-10.2); Carbon Dioxide 24 mmol/L (22-30); Chloride 106 mmol/L (98-107); Glucose 147 mg/dL (74-99); Potassium 4.1 mmol/L (3.5-5.1); Sodium 136 mmol/L (137-145); Total Bilirubin 2.2 mg/dL (0.2-1.3); Total Protein 6.1 g/dL (6.3-8.2)
[2018-05-06 21:53] LABS: INR 1.1 (<1.2)
[2018-05-06 21:54] LABS: D-Dimer 0.79 mg/L FEU (<0.60)
--- NOTE | 2018-05-06 22:08 | XR ---
EXAMINATION TYPE: XR foot complete RT DATE OF EXAM: 05/06/2018 CLINICAL HISTORY: Right foot swelling and pain, history of amputation TECHNIQUE: Frontal, lateral, and oblique images of the right foot are obtained. COMPARISON: Radiograph 09/11/2014 FINDINGS: Evidence of a prior first metatarsal amputation. Subcutaneous thickening and skin thickenin g is seen throughout the dorsum of the foot. No subcutaneous air to suggest abscess or necrotizing in fection. No bony erosive changes. No acute fracture. Degenerative type changes are seen of the midfoo t and hindfoot. IMPRESSION: Prior first metatarsal amputation with soft tissue swelling seen diffusely throughout the foot.
--- NOTE | 2018-05-06 22:09 | XR ---
EXAMINATION TYPE: XR chest 2V DATE OF EXAM: 05/06/2018 COMPARISON: NONE HISTORY: TECHNIQUE: Frontal and lateral views of the chest are obtained. FINDINGS: There is no focal air space opacity, pleural effusion, or pneumothorax seen. The cardiac silhouette size is enlarged. The osseous structures are intact. Round radiopaque metallic opacity is identified in the right upper chest. IMPRESSION: 1. No acute cardiopulmonary process. 2. Cardiomegaly.
[2018-05-06 22:19] LABS: Creatine Kinase MB 0.8 ng/mL (0.0-2.4)
[2018-05-06 22:21] LABS: Appearance,Urine Clear (Clear); Bilirubin,Urine Negative (Negative); Blood,Urine Negative (Negative); Color,Urine Yellow; Glucose,Urine (UA) Negative (Negative); Ketones,Urine Trace (Negative); Leukocyte Esterase,Urine Negative (Negative); Nitrite,Urine Negative (Negative); Protein,Urine Trace (Negative); Specific Gravity,Urine 1.027 (1.001-1.035)
[2018-05-06 22:53] LABS: Troponin I 0.109 ng/mL (0.000-0.034)
[2018-05-06] MEDS ORDERED: HEPARIN SODIUM,PORCINE 5,000 UNIT/ML 1 ML VIAL IV PRN (23:17)
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
[2018-05-06] MEDS ORDERED: NITROGLYCERIN SL TABS 0.4 MG TAB SUBLINGUAL PRN (23:34)
[2018-05-06] MEDS ORDERED: ASPIRIN 81 MG PO STA (23:34)
[2018-05-06] MEDS: HEPARIN SOD,PORK IN 0.45% NACL 25,000 UNIT in 0.45% NACL 1 500ML.BAG IV SCH (23:58)
[2018-05-06] MEDS: SODIUM CHLORIDE 0.9% 1,000 ML IV SCH (23:59)
[2018-05-07 00:46] LABS: Glucose,Whole Blood 126 mg/dL (75-99)
[2018-05-07] MEDS ORDERED: NALOXONE 0.4 MG/ML 1 ML VIAL IV PRN (01:03)
--- NOTE | 2018-05-07 01:34 | P.HPIM ---
History of Present Illness H&P Date: 05/07/18 Chief Complaint: chest pain, generalized weakness and fatigue 63-year-old male with history of CAD status post 3 stents 1.5 years ago, poor medical compliance. Patient is a transfer from [facility], for chest pain. Patient is a poor historian and at the same time he feels hopeless and useless. However he denies any suicidal ideation. He claims that he doesn't believe in medications or even doctors. But he had to come to the hospital because he has not been feeling well lately. He reports that one week ago he was a different facility trying to fix their air conditioning when at the parking lot he felt dizzy and weak and almost fainted bystanders saw him and activated the emergency response team with to come to the ER, he ended up spending over 24 hours in that emergency room with a lot of tests done without seeing a doctor for his claim for which she decided to leave AGAINST MEDICAL ADVICE without getting a diagnosis. Then he reports that since the heart attack that he had 1.5 years ago he's been always short of breath, he reports orthopnea and paroxysmal maternal dyspnea. He also reports occasional leg swelling bilaterally. He denies any chest pain or angina symptoms but recently over the past few days he's been noticing some chest pressure that happens randomly during the day not necessarily associated with activity that he describes as pressure over his sternum radiating to the neck associated with feeling nauseous and today he actually vomited couple times and was feeling weak and shaky and sweaty. He said normally these attacks of chest pain goes away on its own with resting with time and he doesn' t take any medications for this. But today's attack seems to be more serious to him for which she decided to go to [facility]. Her the transfer paperwork from [facility] patient presented with chest pain and shortness of breath to [facility] and he had a fever however again he was denying any urinary symptoms he denies any coughing denies any headache or neck spasms or stiffness he denies any skin abscesses. Patient did have serious infection the right foot first toe for which he was amputated he reported that at that time he had an ulcer at the bottom of the toe which never healed and ended up as an infection and that's how he lost his toe. At [facility] blood cultures were taken and he was given Zosyn and vancomycin, and then his troponins were slightly elevated at 0.05 EKG showed no acute changes compared to the other EKG from one week ago and the patient was started on heparin drip at [facility] and sent to our hospital for further care to rule out acute coronary syndrome. At our facility patient had positive d-dimer CT angiogram of the chest was performed and was negative for acute PE. Chest x-ray showed no acute cardiopulmonary process. Right foot x-ray showed amputation of the first metatarsal with some soft tissue swelling surrounding the dorsum of the foot and the area of amputation. Clinically patient denies any pain in his foot, he denies any acute skin changes over the right foot. Currently patient is laying comfortable in bed eating a meal denies any chest pain or trouble breathing. When I discussed with him clinical course and possibility of requiring medications prior to discharge she showed no interest in taking any medications. Patient again showed some indifference regarding his health, but denied any suicidal ideation denied any depression but did reports feeling hopeless and useless sometimes. When I ask him if he has a family, he reported that he lives with a woman from home he had 2 kids. Patient continues to smoke half a pack of cigarettes every day but denies any drug of abuse or alcohol. When CODE STATUS discussed with the patient he chose to be no code, claiming that he looked a good life and that he 63 years old now and he does not want any heroic measures and would like to be let go peacefully if its his time to go. Patient otherwise denies any coughing, any upper respiratory infection like symptoms, denies any neck stiffness, denies any headache, denies any vision or hearing changes, denies any abdominal pain, denies any diarrhea or GI bleeding, denies any urinary symptoms. Denies any sick contacts Review of Systems Pertinent positives as noted in HPI. All other systems were reviewed and are negative Past Medical History Past Medical History: CVA/TIA, Hyperlipidemia, Hypertension, Myocardial Infarction ([place]), Skin Disorder Additional Past Medical History / Comment(s): PT IS POOR HISTORIAN-PT STATES HAS SOME BLOCKAGES IN [place]. LEGS & RT NECK- STATES FEET ARE ALWAYS ICE COLD- RT GREAT TOE HAS HOLE ,rt.foot wound. LOWER BACK PAIN ALSO. URINE FREQUENCY-UP 2- 3 X A NIGHT,. WAS ON 11 MEDICATIONS FRON IN [place]- BUT STOPPED USING THEM. PT also states he had a blockage removed from his carotid artery and that the hospital told him he had two strokes, Last Myocardial Infarction Date:: 01/18/17 History of Any Multi-Drug Resistant Organisms: None Reported Past Surgical History: Tonsillectomy Additional Past Surgical History / Comment(s): ABDOMINAL SURGERY- REMOVED FISH BONE THAT HAD PUT HOLE IN STOMACH. REPAIR OF BLOCKAGES IN RT LEG 2011,stent to heart, Right great toe removal. Past Anesthesia/Blood Transfusion Reactions: No Reported Reaction Past Psychological History: No Psychological Hx Reported Additional Psychological History / Comment(s): and lives with a long- term lady friend. One adult son. Tobacco smoker till his myocardial infarction. Denies alcohol at this time it was a drinker 20 years ago. 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 No animal exposures Smoking Status: Current every day smoker Past Alcohol Use History: None Reported Additional Past Alcohol Use History / Comment(s): NO ALCOHOL IN 20 YRS- USE TO BE A PROBLEM Past Drug Use History: None Reported - Past Family History Mother Family Medical History: Cancer Father Family Medical History: Myocardial Infarction ([place]) Medications and Allergies Home Medications Medication Instructions Recorded Confirmed Type No Known Home Medications 05/06/18 05/06/18 History Allergies Allergy/AdvReac Type Severity Reaction Status Date / Time hydrocodone [From Vicodin] AdvReac Hallucinati Verified 05/06/18 20:47 ons Physical Exam Vitals: Vital Signs Temp Pulse Pulse Resp BP BP Pulse Ox 05/06/18 23:51 97.9 F 58 L 18 102/56 100 05/06/18 23:45 97.7 F 69 21 119/70 92 L 05/06/18 20:39 98.0 F 66 18 100/58 96 Intake and Output 05/06/18 05/06/18 05/07/18 14:59 22:59 06:59 Other: Weight 106.141 kg 102.4 kg Constitutional: No acute distress, conversant, pleasant Eyes: Anicteric sclerae, moist conjunctiva, no lid-lag Pupils equal round reactive to light ENMT: NC/AT Oropharynx clear, no erythema, or exudates Neck: Supple, FROM, no masses, or JVD No carotid bruits No thyromegaly Lungs: Clear to auscultation, no wheezes rhonchi or rales Clear to percussion Normal respiratory effort, no accessory muscle use Cardiovascular: Heart regular in rate and rhythm, No murmurs, gallops, or rubs No peripheral edema Capillary refill is immediate Abdominal: Soft Nontender, no guarding, rebound or rigidity Abdomen moving with respiration Normoactive bowel sounds No hepatomegaly, No splenomegaly No palpable mass No abdominal wall hernia noted Skin: Normal temperature, tone, texture, turgor No induration No subcutaneous nodules No rash, lesions No ulcers Scarring over the base of the right big toe, no tenderness to palpation , no drainage. Extremities: No digital cyanosis No clubbing Pedal pulses intact and symmetrical Radial pulses intact and symmetrical No calf tenderness Psychiatric: Alert and oriented to person, place and time Appropriate affect fair judgment Neuro Muscles Strength 5/5 in all 4 extremities Sensation to light touch grossly present throughout Cranial nerves II-XII grossly intact No focal sensory deficits Lymphatics: no palpable cervical or supraclavicular , or inguinal lymph nodes Results CBC & Chem 7: 05/06/18 21:24 05/06/18 21:24 Labs: Abnormal Lab Results - Last 24 Hours (Table) 05/06/18 05/06/18 05/06/18 Range/Units 21:24 21:24 21:24 Plt Count 146 L (150-450) k/uL Neutrophils # 8.8 H (1.3-7.7) k/uL Lymphocytes # 0.5 L (1.0-4.8) k/uL D-Dimer (<0.60) mg/L FEU Sodium 136 L (137-145) mmol/L Glucose 147 H (74-99) mg/dL POC Glucose (mg/dL) (75-99) mg/dL Total Bilirubin 2.2 H (0.2-1.3) mg/dL Total Creatine Kinase 51 L (55-170) U/L Troponin I 0.109 H* (0.000-0.034) ng/mL Total Protein 6.1 L (6.3-8.2) g/dL Urine Protein (Negative) Urine Ketones (Negative) 05/06/18 05/06/18 05/07/18 Range/Units 21:24 22:00 00:44 Plt Count (150-450) k/uL Neutrophils # (1.3-7.7) k/uL Lymphocytes # (1.0-4.8) k/uL D-Dimer 0.79 H (<0.60) mg/L FEU Sodium (137-145) mmol/L Glucose (74-99) mg/dL POC Glucose (mg/dL) 126 H (75-99) mg/dL Total Bilirubin (0.2-1.3) mg/dL Total Creatine Kinase (55-170) U/L Troponin I (0.000-0.034) ng/mL Total Protein (6.3-8.2) g/dL Urine Protein Trace H (Negative) Urine Ketones Trace H (Negative) Thrombosis Risk Factor Assmnt - Choose All That Apply Each Factor Represents 1 point: Acute [place] Each Risk Factor Represents 2 Points: Age 61-74 years Thrombosis Risk Factor Assessment Total Risk Factor Score: 3 Thrombosis Risk Factor Assessment Level: Moderate Risk Assessment and Plan Assessment: 63-year-old male with history of coronary artery disease 1.5 years ago had 3 stents at that time, medical noncompliance, patient is admitted as an inpatient with anticipated length of stay of more than 48 hours for symptoms of unstable angina, and to rule out infectious process. Initial Cultures were taken at [facility], after which he was given Vanco and Zosyn 1 dose each. Lactic acid at [facility] was unremarkable and within normal limits his white count was 6.4 and his hemoglobin was 16.8 his basic metabolic panel was unremarkable but he had borderline increase in troponins to 0.05. Patient was transferred to a facility for unstable angina and further cardiac workup. Plan: Unstable angina History of CAD status post 3 stent 1.5 years ago with medical noncompliance Heparin drip Nitro when necessary for chest pain Aspirin Statin Check lipid panel Check TSH Follow-up cardiac enzymes and troponins Cardiology consult 2-D echocardiogram Symptoms suggestive of congestive heart failure with orthopnea and dyspnea upon exertion Rule out CHF Check 2-D echocardiogram as above Tobacco smoking abuse Counseled to quit smoking Nicotine replacement therapy offered DVT prophylaxis on heparin drip for unstable angina rule out infectious process check ESR, CRP follow up cultures from [facility] no leukocytosis , no fever at this time follow up closely patient received one dose of vanco and zosyn at [facility] , i will hold off ABx for now Preformed a thorough record review from recent hospitalization at [facility] the associated paperwork was reviewed thoroughly as summarized in HPI Surrogate decision-maker: Emily CODE STATUS: No code Discussed with: Patient, ER, RN Anticipated discharge: 48-[address]: Home A total of 65 minutes were spent on the care of this complex patient more than 50% of the time was spent in counseling and care coordination.
[2018-05-07 04:11] LABS: Basophils % (A) 0 %; Eosinophils % (A) 0 %; HCT 42.7 % (39.0-53.0); HGB 13.7 gm/dL (13.0-17.5); Lymphocytes # (A) 0.4 k/uL (1.0-4.8); Lymphocytes % (A) 7 %; MCH 29.8 pg (25.0-35.0); MCHC 32.2 g/dL (31.0-37.0); MCV 92.4 fL (80.0-100.0); Mean Platelet Volume 7.5; Monocytes # (A) 0.2 k/uL (0-1.0); Monocytes % (A) 4 %; Neutrophils % (A) 89 %; Platelet Count 137 k/uL (150-450); RBC 4.62 m/uL (4.30-5.90); RDW 14.7 % (11.5-15.5); WBC 6.7 k/uL (3.8-10.6)
[2018-05-07 04:14] LABS: INR 1.2 (<1.2); Partial Thromboplastin Time 29.5 sec (22.0-30.0); Prothrombin Time 11.3 sec (9.0-12.0)
[2018-05-07 04:19] LABS: ALT 45 U/L (21-72); AST 36 U/L (17-59); Albumin 3.3 g/dL (3.5-5.0); Alkaline Phosphatase 75 U/L (38-126); Anion Gap 6 mmol/L; Blood Urea Nitrogen 21 mg/dL (9-20); Calcium 8.2 mg/dL (8.4-10.2); Carbon Dioxide 29 mmol/L (22-30); Chloride 103 mmol/L (98-107); Cholesterol 174 mg/dL (<200); Glucose 159 mg/dL (74-99); HDL Cholesterol 32 mg/dL (40-60); LDL Cholesterol,Calculated 107 mg/dL (0-99); Potassium 3.9 mmol/L (3.5-5.1); Sodium 138 mmol/L (137-145); Total Bilirubin 1.9 mg/dL (0.2-1.3); Total Protein 5.8 g/dL (6.3-8.2); Triglycerides 175 mg/dL (<150)
[2018-05-07 04:41] LABS: Creatine Kinase MB 1.2 ng/mL (0.0-2.4)
[2018-05-07 04:44] LABS: C Reactive Protein 142.9 mg/L (<10.0)
[2018-05-07 04:45] LABS: Troponin I 0.11 ng/mL (0.000-0.034)
[2018-05-07 05:13] LABS: Erythrocyte Sedimentation Rate 8 mm/hr (0-15)
[2018-05-07 05:46] LABS: T4, Free (Free Thyroxine) 0.69 ng/dL (0.78-2.19)
[2018-05-07] MEDS: NICOTINE 14MG/24HR PATCH TRANSDERM SCH (08:14)
[2018-05-07] MEDS: METOPROLOL TARTRATE 25 MG TAB PO SCH ×2 (08:15→21:11)
[2018-05-07] MEDS: SPIRONOLACTONE 25 MG TAB PO SCH (08:15)
[2018-05-07] MEDS: ASPIRIN 81 MG PO SCH (08:15)
--- NOTE | 2018-05-07 08:31 | CONS ---
CONSULTATION Mr. Means is a 63-year-old male with a known history of ischemic cardiomyopathy, peripheral vessel disease, status post percutaneous revascularization, chronic tobacco use, noncompliance who was transferred from [facility] with worsening chest discomfort. He presented to another emergency room recently with symptoms of dizziness and chest discomfort, but apparently he signed against medical advice. He presented again because of progressive fatigue, lack of energy and dyspnea. He feels some palpitation and dizziness. He has no peripheral edema. No clear PND nor orthopnea. He has not been taking any pills and has not been compliant with his medication or followup. He has not seen Dr. Kessler who has done stenting on his right coronary artery in January of 2017. At that time, he presented with evidence of non ST-segment elevation myocardial infarction. 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 At the time of his cardiac catheterization on last admission, he was found to have a totally occluded proximal LAD, critical stenosis in the right coronary artery and mild disease in the left circumflex. He underwent stenting of the RCA using drug-eluting stent. The patient apparently took his medication for about 2 months then he stopped his medication. He denies any peripheral edema. He is limited in his physical activity. He has no recent episode of PND nor orthopnea. His coronary risk factors are remarkable for history of chronic tobacco use, a family history of premature coronary artery disease, prior history of diabetes untreated, hyperlipidemia and a prior history of hypertension. MEDICATIONS: None. REVIEW OF SYSTEM: He has dyspnea on exertion, cough, chronic tobacco use. GI SYSTEM: No recent GI bleed. No peptic ulcer disease. SYSTEM: No dysuria or hematuria. NERVOUS SYSTEM: No history of seizure. PHYSICAL EXAMINATION: He is a 63-year-old male, alert, oriented, in no apparent distress. Blood pressure 108/60 with the heart rate in 70s. HEAD: Normocephalic. EYES: Sclerae anicteric. NECK: No chest distention. LUNGS: With decreased air exchange bilaterally. HEART: Regular rate and rhythm, S1, S2. No S3 with systolic ejection murmur. No diastolic murmur. No rub. ABDOMEN: Soft, nontender. Positive bowel sounds. No organomegaly. EXTREMITIES: Decreased distal pulses. No edema. LAB DATA: Lab data revealed a BUN and creatinine of 19 and 0.9, potassium 3.9. Troponin 0.109 and 0.110. His total bilirubin is 1.9. His TSH 0.287, free T4 0.69. Cholesterol 174, LDL of 107. NT proBNP 2400. His EKG revealed a sinus mechanism with evidence of anteroapical myocardial infarction. His CT angiogram revealed no evidence of pulmonary embolism. Chest x-ray revealed no acute changes. IMPRESSION: 1. Symptoms consistent with non ST-segment elevation myocardial infarction in a patient with multiple risk factors and known prior history of coronary artery disease and noncompliance. 2. Ischemic cardiomyopathy. 3. Chronic tobacco use. 4. Prior history of chronic tobacco use. 5. History of hyperlipidemia. 6. Severe peripheral vascular disease. RECOMMENDATION: From the cardiac standpoint, I would continue on the aspirin and heparin. I will obtain echocardiogram with Doppler. I will add a beta belen to his regimen. The patient will need to undergo cardiac catheterization. I will follow his lab data. Probably he will be scheduled electively tomorrow with Dr. Jolene Kessler. Depending on his progress, further recommendation will be made. I discussed with the patient at length the importance of compliance and his guarded prognosis. Because of the dizziness and the palpitation, the possibility of ventricular tachycardia cannot be excluded. The importance of close followup was discussed with the patient. He verbalized that he is willing to comply at this time, although reviewing the records, it appears that he has prior history of significant noncompliance. Thank you for this consult. We will follow with you. MAMI / RICHN: [id number] /
[2018-05-07] MEDS ORDERED: ASPIRIN 325 MG TAB PO SCH (09:00)
[2018-05-07] MEDS ORDERED: HYDROcodone/APAP 5-325MG 1 EACH TAB PO PRN (10:07)
[2018-05-07] MEDS: ACETAMINOPHEN TAB 325 MG TAB PO PRN (10:14)
[2018-05-07 10:37] LABS: Creatine Kinase MB 1.3 ng/mL (0.0-2.4)
[2018-05-07 10:45] LABS: Troponin I 0.118 ng/mL (0.000-0.034)
[2018-05-07] MEDS ORDERED: ATORVASTATIN 80 MG TAB PO STA (11:09)
[2018-05-07] MEDS ORDERED: SODIUM CHLORIDE 0.9% 1,000 ML in EMPTY BAG 1 BAG IV ONE (11:09)
[2018-05-07] MEDS ORDERED: NITROGLYCERIN SL TABS 0.4 MG TAB SUBLINGUAL PRN (11:09)
[2018-05-07] MEDS ORDERED: ALPRAZolam 0.5 MG TAB PO PRN (11:09)
[2018-05-07] MEDS ORDERED: ASPIRIN 325 MG TAB PO STA (11:09)
[2018-05-07] MEDS ORDERED: ALPRAZolam 0.25 MG TAB PO PRN (11:09)
--- NOTE | 2018-05-07 11:19 | ECHOF ---
Referral Reason:Chest pain, fever, indeterminate troponin MEASUREMENTS -------- HEIGHT: 182.9 cm WEIGHT: 102.1 kg BP: 108/57 IVSd: 1.7 cm (0.6 - 1.1) LVIDd: 6.6 cm (3.9 - 5.3) LVPWd: 1.6 cm (0.6 - 1.1) IVSs: 1.8 cm LVIDs: 6.1 cm LVPWs: 1.7 cm Ao Diam: 3.2 cm (2.0 - 3.7) AV Cusp: 2.0 cm (1.5 - 2.6) LA Diam: 3.9 cm (2.7 - 3.8) MV EXCURSION: 10.412 mm (> 18.000) MV EF SLOPE: 37 mm/s (70 - 150) EPSS: 2.4 cm AV maxP.81 mmHg AV meanP.85 mmHg AR PHT: 173 ms RAP: 5.00 mmHg RVSP: 19.01 mmHg FINDINGS -------- Sinus rhythm. This was a technically good study. The left ventricle is moderately dilated. There is moderate concentric left ventricular hypertrophy . There is severe global hypokinesis of LV . Overall left ventricular systolic function is severe ly impaired with, an EF between 20 - 25 %. The right ventricle is normal in size and function. The left atrium is normal in size. The right atrium is normal in size. Aortic valve is trileaflet and is mildly thickened. There is mild aortic valve sclerosis. Peak/me an gradient across the Aortic Valve is 15.81mmHg / 7.85mmHg. The mitral valve leaflets are mildly thickened. Mild mitral regurgitation is present. Mild tricuspid regurgitation present. The right ventricular systolic pressure, as measured by Doppl er, is 19.01mmHg. Pulmonic valve appears structurally normal. The aortic root size is normal. Normal inferior vena cava with normal inspiratory collapse consistent with estimated right atrial pre ssure of 5 mmHg. The pericardium is normal. CONCLUSIONS -------- 1. Sinus rhythm. 2. This was a technically good study. 3. The left ventricle is moderately dilated. 4. There is moderate concentric left ventricular hypertrophy. 5. There is severe global hypokinesis of LV . 6. Overall left ventricular systolic function is severely impaired with, an EF between 20 - 25 %. 7. The right ventricle is normal in size and function. 8. The left atrium is normal in size. 9. The right atrium is normal in size. 10. Aortic valve is trileaflet and is mildly thickened. 11. There is mild aortic valve sclerosis. 12. Peak/mean gradient across the Aortic Valve is 15.81mmHg / 7.85mmHg. 13. The mitral valve leaflets are mildly thickened. 14. Mild mitral regurgitation is present. 15. Mild tricuspid regurgitation present. 16. The right ventricular systolic pressure, as measured by Doppler, is 19.01mmHg. 17. Pulmonic valve appears structurally normal. 18. The aortic root size is normal. 19. Normal inferior vena cava with normal inspiratory collapse consistent with estimated right atrial pressure of 5 mmHg. 20. The pericardium is normal. [employer]RATION ENGINEER: Helena Cloud RDCS
--- NOTE | 2018-05-07 11:25 | P.PN ---
Subjective Progress Note Date: 05/07/18 Principal diagnosis: chest pain Patient is a 63-year-old male with a past medical history of coronary artery disease status post 3 stent approximately 1.5 years ago, hypertension, dyslipidemia, and tobacco abuse who initially presented at [facility] with chest pain and shortness of breath. He was transferred here secondary to elevated troponin. He was placed on a heparin drip. He had spiked a fever the ER reportedly and had been given a dose of Vanco, Zosyn, and blood cultures had been drawn. In the ER here he underwent a CTA of the chest which showed no acute process was negative for pulmonary embolism. He underwent a right foot x-ray which showed diffuse soft tissue swelling. His EKG did not show any acute ST segment changes. He is admitted to the selective care unit. He was seen by cardiology who agreed with non-ST segment elevated myocardial infarction on aspirin, and heparin. They recommended echocardiogram with Doppler and beta belen. They suggest cardiac catheterization. Records were reviewed his last echocardiogram in our system was 01/17/17 and he was found to have a decreased ejection fraction with an EF of less than 20%. Patient seen and examined at bedside. He complains of weakness and dizziness. He denies any chest pain. He has had chronic shortness of breath since his last heart attack and states that is unchanged. He has a chronic smoker's cough that is nonproductive and unchanged bruits been having a headache for the last 2 days that is worse with coughing. It is in the temporal area. He denies any visual changes. He is not having any problems tolerating light or sound. He denies any changes in neck pain and is sleepy able to flex his chin to his chest. He denies any nausea or vomiting. Patient states that he has attempted to follow-up with primary care physician's with acute leaving the area. Objective - Vital Signs Vital signs: Vital Signs Temp 98.8 F 05/07/18 08:00 Pulse 75 05/07/18 08:00 Resp 22 05/07/18 08:00 BP 122/60 05/07/18 08:00 Pulse Ox 93 L 05/07/18 08:00 Intake & Output 05/06/18 05/07/18 05/07/18 18:59 06:59 18:59 Intake Total 90.667 163.129 Output Total 300 Balance -209.333 163.129 Weight 102.4 kg Intake: Intake, IV Titration 90.667 163.129 Amount Heparin Sod,Pork in 0.45% 90.667 163.129 NaCl 25,000 unit In 0.45 % NaCl 1 500ml.bag @ 20 mls/hr IV .Q24H [facility] Rx#: [id number] Output: Urine 300 Other: Voiding Method Urinal Urinal # Voids 1 - Exam General: non toxic, no distress, appears at stated age, disheveled Derm: warm, dry, right foot with amputation of great toe, no warmth, erythema, or drainage. Healing incision right metatarsal area Head: atraumatic, normocephalic, symmetric Eyes: EOMI, no lid lag, anicteric sclera Mouth: no lip lesion, mucus membranes moist Cardiovascular: S1S2 reg, no murmur, positive posterior tibial pulse bilateral, Lungs: Decreased breath sounds bilateral bases, no rhonchi, no rales , no accessory muscle use Abdominal: soft, nontender to palpation, no guarding, no appreciable organomegaly Ext: no gross muscle atrophy, no edema, no contractures Neuro: CN II-XI grossly intact, no focal neuro deficits Psych: Alert, oriented, appropriate affect - Labs CBC & Chem 7: 05/07/18 03:27 05/07/18 03:27 Labs: Abnormal Lab Results - Last 24 Hours (Table) 05/06/18 05/06/18 05/06/18 Range/Units 21:24 21:24 21:24 Plt Count 146 L (150-450) k/uL Neutrophils # 8.8 H (1.3-7.7) k/uL Lymphocytes # 0.5 L (1.0-4.8) k/uL INR (<1.2) APTT (22.0-30.0) sec D-Dimer (<0.60) mg/L FEU Sodium 136 L (137-145) mmol/L BUN (9-20) mg/dL Glucose 147 H (74-99) mg/dL POC Glucose (mg/dL) (75-99) mg/dL Calcium (8.4-10.2) mg/dL Total Bilirubin 2.2 H (0.2-1.3) mg/dL Total Creatine Kinase 51 L (55-170) U/L Troponin I 0.109 H* (0.000-0.034) ng/mL C-Reactive Protein (<10.0) mg/L Total Protein 6.1 L (6.3-8.2) g/dL Albumin (3.5-5.0) g/dL Triglycerides (<150) mg/dL LDL Cholesterol, Calc (0-99) mg/dL HDL Cholesterol (40-60) mg/dL TSH (0.465-4.680) mIU/L Free T4 (0.78-2.19) ng/dL Urine Protein (Negative) Urine Ketones (Negative) 05/06/18 05/06/18 05/07/18 Range/Units 21:24 22:00 00:44 Plt Count (150-450) k/uL Neutrophils # (1.3-7.7) k/uL Lymphocytes # (1.0-4.8) k/uL INR (<1.2) APTT (22.0-30.0) sec D-Dimer 0.79 H (<0.60) mg/L FEU Sodium (137-145) mmol/L BUN (9-20) mg/dL Glucose (74-99) mg/dL POC Glucose (mg/dL) 126 H (75-99) mg/dL Calcium (8.4-10.2) mg/dL Total Bilirubin (0.2-1.3) mg/dL Total Creatine Kinase (55-170) U/L Troponin I (0.000-0.034) ng/mL C-Reactive Protein (<10.0) mg/L Total Protein (6.3-8.2) g/dL Albumin (3.5-5.0) g/dL Triglycerides (<150) mg/dL LDL Cholesterol, Calc (0-99) mg/dL HDL Cholesterol (40-60) mg/dL TSH (0.465-4.680) mIU/L Free T4 (0.78-2.19) ng/dL Urine Protein Trace H (Negative) Urine Ketones Trace H (Negative) 05/07/18 05/07/18 05/07/18 Range/Units 03:27 03:27 03:27 Plt Count 137 L (150-450) k/uL Neutrophils # (1.3-7.7) k/uL Lymphocytes # 0.4 L (1.0-4.8) k/uL INR 1.2 H (<1.2) APTT (22.0-30.0) sec D-Dimer (<0.60) mg/L FEU Sodium (137-145) mmol/L BUN (9-20) mg/dL Glucose (74-99) mg/dL POC Glucose (mg/dL) (75-99) mg/dL Calcium (8.4-10.2) mg/dL Total Bilirubin (0.2-1.3) mg/dL Total Creatine Kinase 47 L (55-170) U/L Troponin I 0.110 H* (0.000-0.034) ng/mL C-Reactive Protein (<10.0) mg/L Total Protein (6.3-8.2) g/dL Albumin (3.5-5.0) g/dL Triglycerides (<150) mg/dL LDL Cholesterol, Calc (0-99) mg/dL HDL Cholesterol (40-60) mg/dL TSH (0.465-4.680) mIU/L Free T4 (0.78-2.19) ng/dL Urine Protein (Negative) Urine Ketones (Negative) 05/07/18 05/07/18 05/07/18 Range/Units 03:27 09:23 09:23 Plt Count (150-450) k/uL Neutrophils # (1.3-7.7) k/uL Lymphocytes # (1.0-4.8) k/uL INR (<1.2) APTT 35.1 H (22.0-30.0) sec D-Dimer (<0.60) mg/L FEU Sodium (137-145) mmol/L BUN 21 H (9-20) mg/dL Glucose 159 H (74-99) mg/dL POC Glucose (mg/dL) (75-99) mg/dL Calcium 8.2 L (8.4-10.2) mg/dL Total Bilirubin 1.9 H (0.2-1.3) mg/dL Total Creatine Kinase 43 L (55-170) U/L Troponin I 0.118 H* (0.000-0.034) ng/mL C-Reactive Protein 142.9 H (<10.0) mg/L Total Protein 5.8 L (6.3-8.2) g/dL Albumin 3.3 L (3.5-5.0) g/dL Triglycerides 175 H (<150) mg/dL LDL Cholesterol, Calc 107 H (0-99) mg/dL HDL Cholesterol 32 L (40-60) mg/dL TSH 0.287 L (0.465-4.680) mIU/L Free T4 0.69 L (0.78-2.19) ng/dL Urine Protein (Negative) Urine Ketones (Negative) Microbiology - Last 24 Hours (Table) 05/06/18 22:00 Urine Culture - Preliminary Urine,Voided Assessment and Plan Assessment: Non-ST segment elevated myocardial infarction -Aspirin, Lipitor, Lopressor, Aldactone -Repeat he troponin pending -Cardiology recommendations re-she plans likely for cath in a.m. -Await echocardiogram dizziness with known coronary artery disease - echo - tele - orthostatic vitals Headache - no concerning features at this point in time - tylenol and monitor for signs of improvement Ischemic systolic cardiomyopathy with ejection fraction less than 20% 01/23 -Aspirin, Lipitor, Lopressor, Aldactone - await repeat echo and if EF still low and BP can handle add ACEI Thyroid abnormality - shows decreased Tsh and free T4 which is not consistent testing unless central hypothyrodism - Possible alteration due to illness or alteration of lab values from heparin gtt - suggest repeat testing in 4-6 weeks as outpatient, unless more disease characteristic found consistent with thyroid disease. Then consider repeat testing once heparin gtt off. Tobacco abuse - cessation - avoaid nicotine replacement in guero Dyslipidemia - statin DVT prophylaxis: Currently on heparin drip Discussed with: Patient, ICU nursing, case management Anticipated discharge: 2-[address]: Home A total of 35 minutes was spent on the care of this complex patient more than 50 % of the time was spent in counseling and care coordination.
[2018-05-07] MEDS: SODIUM CHLORIDE 0.9% 1,000 ML IV SCH ×2 (13:03→21:11)
[2018-05-07] MEDS: HEPARIN SOD,PORK IN 0.45% NACL 25,000 UNIT in 0.45% NACL 1 500ML.BAG IV SCH (17:43)
[2018-05-07] MEDS ORDERED: ATORVASTATIN 40 MG TAB PO SCH (21:00)
[2018-05-08] MEDS: ACETAMINOPHEN TAB 325 MG TAB PO PRN (01:44)
[2018-05-08 05:15] LABS: Basophils % (A) 0 %; Eosinophils # (A) 0.1 k/uL (0-0.7); Eosinophils % (A) 2 %; HCT 41.1 % (39.0-53.0); Lymphocytes % (A) 26 %; MCHC 31.6 g/dL (31.0-37.0); MCV 91.9 fL (80.0-100.0); Mean Platelet Volume 7.8; Monocytes # (A) 0.2 k/uL (0-1.0); Monocytes % (A) 6 %; Neutrophils # (A) 2.3 k/uL (1.3-7.7); Neutrophils % (A) 61 %; Platelet Count 125 k/uL (150-450); RBC 4.48 m/uL (4.30-5.90); RDW 14.7 % (11.5-15.5); WBC 3.8 k/uL (3.8-10.6)
[2018-05-08 05:38] LABS: Partial Thromboplastin Time 45.8 sec (22.0-30.0); Prothrombin Time 10.2 sec (9.0-12.0)
[2018-05-08] MEDS: SODIUM CHLORIDE 0.9% 1,000 ML IV SCH ×2 (05:45→16:26)
[2018-05-08] MEDS ORDERED: ALPRAZolam 0.25 MG TAB PO PRN (06:00)
[2018-05-08] MEDS ORDERED: ALPRAZolam 0.5 MG TAB PO PRN (06:00)
[2018-05-08 06:26] LABS: ALT 44 U/L (21-72); AST 30 U/L (17-59); Alkaline Phosphatase 85 U/L (38-126); Anion Gap 4 mmol/L; Blood Urea Nitrogen 18 mg/dL (9-20); Calcium 8.5 mg/dL (8.4-10.2); Carbon Dioxide 24 mmol/L (22-30); Chloride 109 mmol/L (98-107); Glucose 135 mg/dL (74-99); Potassium 4.5 mmol/L (3.5-5.1); Sodium 137 mmol/L (137-145); Total Bilirubin 0.9 mg/dL (0.2-1.3); Total Protein 5.6 g/dL (6.3-8.2)
[2018-05-08] MEDS ORDERED: ATORVASTATIN 80 MG TAB PO ONE (07:00)
[2018-05-08] MEDS ORDERED: SODIUM CHLORIDE 0.9% 1,000 ML in EMPTY BAG 1 BAG IV ONE (07:00)
[2018-05-08] MEDS ORDERED: ASPIRIN 325 MG TAB PO ONE (07:00)
[2018-05-08] MEDS: METOPROLOL TARTRATE 25 MG TAB PO SCH ×2 (08:33→20:58)
[2018-05-08] MEDS: HEPARIN SOD,PORK IN 0.45% NACL 25,000 UNIT in 0.45% NACL 1 500ML.BAG IV SCH (08:33)
[2018-05-08] MEDS: ASPIRIN 81 MG PO SCH (09:54)
[2018-05-08] MEDS: NICOTINE 14MG/24HR PATCH TRANSDERM SCH (09:54)
[2018-05-08] MEDS: SPIRONOLACTONE 25 MG TAB PO SCH (10:07)
[2018-05-08 12:16] LABS: Glucose,Whole Blood 121 mg/dL (75-99)
--- NOTE | 2018-05-08 12:19 | P.PN ---
Subjective Progress Note Date: 05/08/18 Principal diagnosis: chest pain Patient is a 63-year-old male with a past medical history of coronary artery disease status post 3 stents approximately 1.5 years ago, hypertension, dyslipidemia, and tobacco abuse who initially presented at [facility] with chest pain and shortness of breath. He was transferred here secondary to elevated troponin. He was placed on a heparin drip. He had spiked a fever the ER reportedly and had been given a dose of Vanco, Zosyn, and blood cultures had been drawn. In the ER here he underwent a CTA of the chest which showed no acute process was negative for pulmonary embolism. He underwent a right foot x-ray which showed diffuse soft tissue swelling. His EKG did not show any acute ST segment changes. He was admitted to the selective care unit. He was seen by cardiology who agreed with non-ST segment elevated myocardial infarction and to continue aspirin, and heparin. They recommended echocardiogram with Doppler and beta belen. They suggest cardiac catheterization. Records were reviewed and his last echocardiogram in our system was 01/17/17 and he was found to have a decreased ejection fraction with an EF of less than 20%. Repeat echo this hospitalization showed EF of 20-25%. Patient seen and examined at bedside. Detail of some shortness of breath last night and had difficulty sleeping. No chest pain, palpitations, and his dizziness is improved today but not resolved. He still is feeling generally weak. No nausea or vomiting. Objective - Vital Signs Vital signs: Vital Signs Temp 97.7 F 05/08/18 09:00 Pulse 68 05/08/18 09:00 Resp 14 05/08/18 09:00 BP 127/74 05/08/18 09:00 Pulse Ox 94 L 05/08/18 09:00 Intake & Output 05/07/18 05/08/18 05/08/18 18:59 06:59 18:59 Intake Total 406.294 601.362 668.638 Output Total 200 0 Balance 206.294 601.362 668.638 Weight 92 kg Intake: IV 200 550 Sodium Chloride 0.9% 1, 200 550 000 ml @ 100 mls/hr IV . Q10H [facility] Rx#:[id number] Intake, IV Titration 406.294 401.362 98.638 Amount Heparin Sod,Pork in 0.45% 406.294 401.362 98.638 NaCl 25,000 unit In 0.45 % NaCl 1 500ml.bag @ 20 mls/hr IV .Q24H [facility] Rx#: [id number] Oral 20 Output: Urine 200 0 Other: Voiding Method Toilet Toilet Urinal # Voids 1 1 - Exam General: non toxic, no distress, appears at stated age, disheveled Derm: warm, dry Head: atraumatic, normocephalic, symmetric Eyes: EOMI, no lid lag, anicteric sclera Mouth: no lip lesion, mucus membranes moist Cardiovascular: S1S2 reg, no murmur, positive posterior tibial pulse bilateral, Lungs: Decreased breath sounds bilateral bases, no rhonchi, no rales , no accessory muscle use Abdominal: soft, nontender to palpation, no guarding, no appreciable organomegaly Ext: no gross muscle atrophy, no edema, no contractures Neuro: CN II-XI grossly intact, no focal neuro deficits Psych: Alert, oriented, appropriate affect - Labs CBC & Chem 7: 05/08/18 04:53 05/08/18 05:23 Labs: Abnormal Lab Results - Last 24 Hours (Table) 05/07/18 05/08/18 05/08/18 Range/Units 16:21 04:53 04:53 Plt Count 125 L (150-450) k/uL APTT 49.8 H 45.8 H (22.0-30.0) sec Chloride (98-107) mmol/L Glucose (74-99) mg/dL Total Protein (6.3-8.2) g/dL Albumin (3.5-5.0) g/dL 05/08/18 Range/Units 05:23 Plt Count (150-450) k/uL APTT (22.0-30.0) sec Chloride 109 H (98-107) mmol/L Glucose 135 H (74-99) mg/dL Total Protein 5.6 L (6.3-8.2) g/dL Albumin 3.0 L (3.5-5.0) g/dL Microbiology - Last 24 Hours (Table) 05/06/18 22:00 Urine Culture - Final Urine,Voided Assessment and Plan Assessment: Non-ST segment elevated myocardial infarction -Aspirin, Lipitor, Lopressor, Aldactone -Cardiology recommendations re-she plans likely for cath in a.m. -Cath today dizziness with known coronary artery disease - echo with low EF - tele - orthostatic vitals Ischemic systolic cardiomyopathy with ejection fraction 20-25% -Aspirin, Lipitor, Lopressor, Aldactone - add acei in AM if cr stable Thyroid abnormality - shows decreased Tsh and free T4 which is not consistent testing unless central hypothyrodism - Possible alteration due to illness or alteration of lab values from heparin gtt - Patient report intermittent palpitation at night, will repeat TSH and T4 off heparin gtt. Tobacco abuse - cessation - avoid nicotine replacement in ACS Dyslipidemia - statin Headache, resolved DVT prophylaxis: Currently on heparin drip Discussed with: Patient, ICU nursing, case management Anticipated discharge:1-[address]: Home A total of 35 minutes was spent on the care of this complex patient more than 50 % of the time was spent in counseling and care coordination.
[2018-05-08] MEDS ORDERED: IV FLUID CONTINUATION 1,000 ML IV ONE (12:21)
[2018-05-08] MEDS ORDERED: MIDAZOLAM 2 MG/2 ML VIAL ONE (12:27)
[2018-05-08] MEDS ORDERED: diphenhydrAMINE 50 MG/ML 1 ML VIAL ONE (12:28)
[2018-05-08] MEDS ORDERED: LIDOCAINE 1% INJ 10MG/ML (20 ML MDV) ONE (12:28)
[2018-05-08] MEDS ORDERED: fentaNYL (PF) 50 MCG/ML 2 ML AMP ONE (12:43)
[2018-05-08] MEDS ORDERED: LIDOCAINE 2% SYG (PF) 100 MG/5 ML MISCELLANE ONE (12:43)
[2018-05-08] MEDS ORDERED: MIDAZOLAM 2 MG/2 ML VIAL IVP ONE (12:49)
[2018-05-08] MEDS ORDERED: diphenhydrAMINE 50 MG/ML 1 ML VIAL IVP ONE (12:49)
[2018-05-08] MEDS ORDERED: fentaNYL (PF) 50 MCG/ML 2 ML AMP IVP ONE (12:50)
[2018-05-08] MEDS ORDERED: BIVALIRUDIN BOLUS 250 MG/50 ML IV ONE ×2 (13:00)
[2018-05-08] MEDS ORDERED: BIVALIRUDIN 250 MG in SODIUM CHLORIDE 0.9% 50 ML IV ONE (13:02)
[2018-05-08] MEDS ORDERED: IOPAMIDOL-370 100ML BTL INJ ONE ×3 (13:09→13:22)
[2018-05-08] MEDS ORDERED: NITROGLYCERIN 1000MCG/10ML SYRINGE INTRACORON ONE (13:11)
[2018-05-08] MEDS ORDERED: MORPHINE SULFATE 4 MG/ML SYRINGE ONE (13:19)
[2018-05-08] MEDS ORDERED: MORPHINE SULFATE 4 MG/ML SYRINGE IV ONE (13:20)
[2018-05-08] MEDS ORDERED: CLOPIDOGREL 75 MG TAB ONE ×2 (13:26)
[2018-05-08] MEDS ORDERED: CLOPIDOGREL 75 MG TAB PO ONE (13:32)
[2018-05-08] MEDS ORDERED: ATROPINE SULFATE 0.1 MG/ML 10ML SYRINGE IV PRN (13:32)
[2018-05-08] MEDS ORDERED: RX INFO: IV CONTRAST WAS GIVEN 1 EACH MISC MISCELLANE PRN (13:32)
[2018-05-08] MEDS ORDERED: ZOLPIDEM 5 MG TAB PO PRN (13:32)
[2018-05-08] MEDS ORDERED: NITROGLYCERIN SL TABS 0.4 MG TAB SUBLINGUAL PRN (13:32)
[2018-05-08] MEDS ORDERED: MAG HYDROX/AL HYDROX/SIMETH 30 ML CUP PO PRN (13:32)
[2018-05-08] MEDS ORDERED: FUROSEMIDE 10 MG/ML 4 ML VIAL ONE (13:33)
[2018-05-08] MEDS ORDERED: FUROSEMIDE 10 MG/ML 4 ML VIAL IV ONE (13:35)
[2018-05-08] MEDS ORDERED: SODIUM CHLORIDE 0.9% 1,000 ML IV SCH (13:45)
[2018-05-08 14:05] VITALS: BMI 26.7
--- NOTE | 2018-05-08 15:20 | CC ---
CARDIAC CATHETERIZATION REPORT LEFT HEART CATHETERIZATION, CORONARY ANGIOGRAPHY AND PTCA AND STENTING OF CIRCUMFLEX MARGINAL WITH A DRUG-ELUTING STENT: PERFORMED BY: Dr. David Kessler. Moderate conscious sedation time was 42 minutes. Patient was given a combination of Versed, Benadryl and morphine and his oxygen saturation, hemodynamics and EKG were monitored closely. CLINICAL INFORMATION: Mr. Gerardo Means is a 63-year-old gentleman with a known history of CAD. In January of last year he presented to the hospital and went on to have a coronary angiography which revealed total occlusion of the LAD at its ostium. His RCA had a long tight area of narrowing and he had 3 drug-eluting stents deployed. Since then, he was last to follow up, stopped all his medications, came back to the hospital with chest pain and troponin elevation suggestive of non-ST elevation [place] and had ejection fraction of less than 25%. He was advised coronary angiography in view of his presentation and known multivessel disease. PROCEDURE NOTE: Under local anesthesia and strict aseptic precautions, a 6-Portuguese introducer was placed in the right femoral artery. Using standard Earle catheters, I performed coronary angiography and noted that he had a new lesion in the circumflex marginal of about 80%- 90% and I proceeded to perform intervention in the same setting. The previously stented RCA was widely patent and LAD was totally occluded. PCI was performed using a standard left Earle type guide catheter and a BMW wire was used to cross the lesion. Without predilatation, an 8 mm long 3.0 caliber Xience stent was deployed at 12 atmospheres. Patient did not have chest pain or EKG changes. He had excellent angiographic result without complication. He received Angiomax bolus and infusion and also received 600 mg of Plavix. Excellent angiographic result without any complication was achieved. I checked LV pressures but did not perform an LV-gram. There was a significant elevation of LV pressures and patient received IV Lasix as well. A Perclose device was used to secure hemostasis and good hemostasis was secured. He was sent to the room in stable condition. Results were discussed with the patient. There was no family available. CARDIAC CATHETERIZATION FINDINGS: The left ventricle end-diastolic pressure was 32 mmHg, which was significantly elevated. There was no gradient across the aortic valve. LV gram was not performed. CORONARY ANGIOGRAPHY FINDINGS: RIGHT CORONARY ARTERY: Dominant vessel, previously stented area is widely patent with remarkably good angiographic appearance and flow. No significant disease is noted in the stented segment in the proximal RCA. LEFT MAIN CORONARY ARTERY: Short patent disease-free vessel that immediately bifurcates into LAD and circumflex. No significant disease in the short left main. LEFT ANTERIOR DESCENDING CORONARY ARTERY: This vessel is totally occluded, seen as a stump with a 2 small vessels that come off which appear to be in the diagonal distribution. The LAD is therefore totally occluded after a small diagonal. LEFT POSTERIOR CIRCUMFLEX CORONARY ARTERY: Technically a nondominant vessel, gives off a high obtuse marginal and this obtuse marginal in multiple views was looked at and there is evidence of 80% eccentric lesion best seen in the ANSELMO caudal projection. The circumflex that runs in the AV groove and comes off with a posterolateral branch is free of significant disease. The obtuse marginal therefore had a significant 80 % lesion. PTCA and stenting of obtuse marginal was performed with a drug-eluting stent with excellent angiographic result. There were no complications and patient tolerated the procedure well without complication. MMODL / IJN: [id number] / ESTIVEN
[2018-05-08] MEDS ORDERED: ATORVASTATIN 80 MG TAB PO SCH (21:00)
[2018-05-09] MEDS: SODIUM CHLORIDE 0.9% 1,000 ML IV SCH (05:41)
[2018-05-09 06:41] LABS: Basophils % (A) 0 %; Eosinophils # (A) 0.1 k/uL (0-0.7); Eosinophils % (A) 2 %; HCT 40.1 % (39.0-53.0); HGB 12.7 gm/dL (13.0-17.5); Lymphocytes # (A) 0.8 k/uL (1.0-4.8); Lymphocytes % (A) 18 %; MCH 28.9 pg (25.0-35.0); MCHC 31.7 g/dL (31.0-37.0); MCV 91.1 fL (80.0-100.0); Monocytes # (A) 0.3 k/uL (0-1.0); Monocytes % (A) 6 %; Neutrophils % (A) 71 %; Platelet Count 142 k/uL (150-450); RDW 14.7 % (11.5-15.5); WBC 4.2 k/uL (3.8-10.6)
[2018-05-09 06:48] LABS: Anion Gap 5 mmol/L; Blood Urea Nitrogen 17 mg/dL (9-20); Calcium 8.6 mg/dL (8.4-10.2); Carbon Dioxide 28 mmol/L (22-30); Chloride 105 mmol/L (98-107); Glucose 132 mg/dL (74-99); Potassium 4.3 mmol/L (3.5-5.1); Prothrombin Time 10.2 sec (9.0-12.0); Sodium 138 mmol/L (137-145)
[2018-05-09] MEDS: NICOTINE 14MG/24HR PATCH TRANSDERM SCH ×2 (08:27→09:12)
[2018-05-09] MEDS: SPIRONOLACTONE 25 MG TAB PO SCH (08:27)
[2018-05-09] MEDS: ASPIRIN 81 MG PO SCH (08:27)
[2018-05-09] MEDS: METOPROLOL TARTRATE 25 MG TAB PO SCH (08:27)
--- NOTE | 2018-05-09 08:49 | P.PN ---
Subjective Progress Note Date: 05/09/18 Principal diagnosis: chest pain Patient is a 63-year-old male with a past medical history of coronary artery disease status post 3 stents approximately 1.5 years ago, hypertension, dyslipidemia, and tobacco abuse who initially presented at [facility] with chest pain and shortness of breath. He was transferred here secondary to elevated troponin. He was placed on a heparin drip. He had spiked a fever the ER reportedly and had been given a dose of Vanco, Zosyn, and blood cultures had been drawn. In the ER here he underwent a CTA of the chest which showed no acute process was negative for pulmonary embolism. He underwent a right foot x-ray which showed diffuse soft tissue swelling. His EKG did not show any acute ST segment changes. He was admitted to the selective care unit. He was seen by cardiology who agreed with non-ST segment elevated myocardial infarction and to continue aspirin, and heparin. They recommended echocardiogram with Doppler and beta belen. They suggest cardiac catheterization. Records were reviewed and his last echocardiogram in our system was 01/17/17 and he was found to have a decreased ejection fraction with an EF of less than 20%. Repeat echo this hospitalization showed EF of 20-25%. He underwent cath on 05/08 with a sent to the OM. Patient seen and examined at bedside. He was up and walking yesterday without significant dizziness. C/O abdominal pain that is worse with cough and eating. No chest pain, SOB, nausea, or vomiting. No diarrhea. Objective - Vital Signs Vital signs: Vital Signs Temp 98.3 F 05/09/18 03:26 Pulse 71 05/09/18 08:26 Resp 18 05/09/18 08:26 BP 135/73 05/09/18 03:26 Pulse Ox 93 L 05/09/18 03:26 Intake & Output 05/08/18 05/09/18 05/09/18 18:59 06:59 18:59 Intake Total 4860.747 2686 240 Output Total 3025 300 Balance -4994.785 9403 -60 Weight 92 kg 106.2 kg Intake: IV 835 950 Sodium Chloride 0.9% 1, 550 000 ml @ 100 mls/hr IV . Q10H LENA Rx#:[id number] Sodium Chloride 0.9% 1, 150 950 000 ml @ 50 mls/hr IV . Q20H LENA Rx#:[id number] Intake, IV Titration 98.638 400 Amount Heparin Sod,Pork in 0.45% 98.638 NaCl 25,000 unit In 0.45 % NaCl 1 500ml.bag @ 20 mls/hr IV .Q24H LENA Rx#: [id number] Sodium Chloride 0.9% 1, 400 000 ml @ 50 mls/hr IV . Q20H LENA Rx#:[id number] Oral 500 480 240 Output: Urine 3025 300 Other: Voiding Method Toilet Toilet Toilet # Voids 1 4 - Exam General: non toxic, no distress, appears at stated age Derm: warm, dry Head: atraumatic, normocephalic, symmetric Eyes: EOMI, no lid lag, anicteric sclera Mouth: no lip lesion, mucus membranes moist Cardiovascular: S1S2 reg, no murmur, positive posterior tibial pulse bilateral, Lungs: CTA b/l, no rhonchi, no rales , no accessory muscle use Abdominal: soft, nontender to palpation, no guarding, no appreciable organomegaly Ext: no gross muscle atrophy, no edema, no contractures Neuro: CN II-XI grossly intact, no focal neuro deficits Psych: Alert, oriented, appropriate affect - Labs CBC & Chem 7: 05/09/18 06:02 05/09/18 06:02 Labs: Abnormal Lab Results - Last 24 Hours (Table) 05/08/18 05/09/18 05/09/18 Range/Units 12:03 06:02 06:02 Hgb 12.7 L (13.0-17.5) gm/dL Plt Count 142 L (150-450) k/uL Lymphocytes # 0.8 L (1.0-4.8) k/uL Glucose 132 H (74-99) mg/dL POC Glucose (mg/dL) 121 H (75-99) mg/dL Microbiology - Last 24 Hours (Table) 05/06/18 22:00 Urine Culture - Final Urine,Voided Assessment and Plan Assessment: Non-ST segment elevated myocardial infarction s/p PCI -Aspirin, Lipitor, Lopressor, Aldactone, plavix - cardio recs appreciated Ischemic systolic cardiomyopathy with ejection fraction 20-25% -Aspirin, Lipitor, Lopressor, Aldactone -Added Lisinopril 5 mg daily dyspepsia - IV protonix daily Thyroid abnormality - Repeat TSH normal, no thyroid dysfunction, like secondary to being on heparin gtt Tobacco abuse - cessation - avoid nicotine replacement in ACS Dyslipidemia - statin Headache, resolved Dizziness, resolved DVT prophylaxis: heparin Discussed with: Patient, nursing, case management Anticipated discharge:in AM Anticipated discharge place: Home A total of 25 minutes was spent on the care of this complex patient more than 50 % of the time was spent in counseling and care coordination.
[2018-05-09 08:56] LABS: C Reactive Protein 39.8 mg/L (<10.0)
[2018-05-09] MEDS ORDERED: LISINOPRIL 5 MG TAB PO SCH (09:00)
[2018-05-09] MEDS ORDERED: FUROSEMIDE 40 MG TAB PO SCH (09:00)
[2018-05-09] MEDS ORDERED: CLOPIDOGREL 75 MG TAB PO SCH (09:00)
[2018-05-09] MEDS ORDERED: PANTOPRAZOLE 40 MG/10 ML VIAL IVP SCH (09:45)
[2018-05-09 11:35] VITALS: RESP 16
--- NOTE | 2018-05-09 14:18 | P.PN ---
Subjective Progress Note Date: 05/09/18 Principal diagnosis: Non-STEMI This is a 63-year-old gentleman with known history of ischemic cardio myopathy, PVD, status post percutaneous revascularization, nicotine dependence, noncompliance, who presented from [facility] with non-Q-wave myocardial infarction. He was taken to the cardiac catheterization lab where he angioplasty with stent placement of the OM by Dr. David Kessler yesterday. Patient was seen and examined this morning, denied any chest pain or difficulty. Hemodynamically stable. His EKG was reviewed which showed normal sinus rhythm with no changes from post-PCI. He was dynamic with stable, blood pressure 130/70 this morning, heart rate in the 70s. White blood cell count 4.2 , hemoglobin 12.7, platelet count 142. Sodium 138, potassium 4.3, BUN 17, creatinine 0.8. TSH is 1.8. Patient should be able to be discharged home today. We'll make him a follow-up appointment with Dr. David Kessler in the office post discharge. Patient has been instructed regarding the importance of medication compliance and follow-up appointments. Objective - Vital Signs Vital signs: Vital Signs Temp 98.8 F 05/09/18 11:35 Pulse 56 L 05/09/18 11:35 Resp 16 05/09/18 11:35 BP 135/77 05/09/18 11:35 Pulse Ox 94 L 05/09/18 11:35 Intake & Output 05/08/18 05/09/18 05/09/18 18:59 06:59 18:59 Intake Total 9128.300 9884 850 Output Total 3025 300 Balance -8410.949 0751 550 Weight 92 kg 106.2 kg Intake: IV 835 950 10 Invasive Line 1 10 Sodium Chloride 0.9% 1, 550 000 ml @ 100 mls/hr IV . Q10H LENA Rx#:[id number] Sodium Chloride 0.9% 1, 150 950 000 ml @ 50 mls/hr IV . Q20H LENA Rx#:[id number] Intake, IV Titration 98.638 400 Amount Heparin Sod,Pork in 0.45% 98.638 NaCl 25,000 unit In 0.45 % NaCl 1 500ml.bag @ 20 mls/hr IV .Q24H LENA Rx#: [id number] Sodium Chloride 0.9% 1, 400 000 ml @ 50 mls/hr IV . Q20H LENA Rx#:[id number] Oral 500 480 840 Output: Urine 3025 300 Other: Voiding Method Toilet Toilet Toilet # Voids 1 4 300 - Exam PHYSICAL EXAMINATION: GENERAL: 63-year-old gentleman in no acute distress at the time of my examination HEENT: Head is atraumatic, normocephalic. Pupils equal, round. Sclera anicteric. Conjunctiva are clear. Mucous membranes of the mouth are moist. Neck is supple. There is no elevated jugular venous pressure. No carotid bruit is heard. HEART EXAMINATION: Heart S1, S2 normal. No murmur or gallop heard. CHEST EXAMINATION: Lungs reveal fine expiratory wheezes throughout with decreased air exchange. ABDOMEN: Soft, nontender. Bowel sounds are heard. No organomegaly noted. EXTREMITIES: 1+ peripheral pulses with no evidence of peripheral edema and no calf tenderness noted. Right groin soft, no evidence of any hematoma. NEUROLOGIC patient is awake, alert and oriented X3. . - Labs CBC & Chem 7: 05/09/18 06:02 05/09/18 06:02 Labs: Abnormal Lab Results - Last 24 Hours (Table) 05/09/18 05/09/18 Range/Units 06:02 06:02 Hgb 12.7 L (13.0-17.5) gm/dL Plt Count 142 L (150-450) k/uL Lymphocytes # 0.8 L (1.0-4.8) k/uL Glucose 132 H (74-99) mg/dL C-Reactive Protein 39.8 H (<10.0) mg/L Microbiology - Last 24 Hours (Table) 05/06/18 22:00 Urine Culture - Final Urine,Voided Assessment and Plan Plan: Assessment and plan #1 non-Q wave myocardial infarction status post angioplasty with stenting of the OM #2 ischemic cardiomyopathy #3 peripheral vascular disease #4 nicotine dependence Plan Patient may be able to be discharged home today from cardiology's perspective. We'll make him a follow-up appointment to see Dr. JOSE MARIA Kessler in the office post discharge. Patient has been instructed regarding the importance of medication compliance and follow-up visit. Discharge medications include aspirin 81 mg daily, Lipitor 80 mg daily, Plavix 75 mg daily, Lasix 40 mg daily, lisinopril 5 mg daily, metoprolol 25 mg one tablet by mouth twice a day,Nicotine Patch, Aldactone 25mg PO Daily, sublingual nitro as needed for chest pain. DNP note has been reviewed, I agree with a documented findings and plan of care. Patient was seen and examined.
--- NOTE | 2018-05-09 14:46 | P.DS ---
Providers Date of admission: 05/06/18 23:34 Expected date of discharge: 05/09/18 Attending physician: Chapincito Saez MD Consults: 05/06/18 23:34 Consult Physician Urgent Consulting Provider: Audrey Galeas Consult Reason/Comments: cp, fever, trop.1 Do you want consulting provider notified?: Yes 05/08/18 13:32 Consult Physician Routine Consulting Provider: [facility] Consult Reason/Comments: Post Interventional patient Do you want consulting provider notified?: Already Contacted Primary care physician: Stated None Hospital Course: Discharge Diagnoses: Non-ST segment elevated myocardial infarction Status post percutaneous coronary intervention to the obtuse marginal with a drug-eluting stent Ischemic cardiomyopathy EF 20-25% Dyslipidemia Gastritis Obesity with BMI 30.9 Tobacco abuse Headache Hospital Course: Patient is a 63-year-old male with a past medical history of coronary artery disease status post 3 stents approximately 1.5 years ago, hypertension, dyslipidemia, and tobacco abuse who initially presented at [facility] with chest pain and shortness of breath. He was transferred here secondary to elevated troponin. He was placed on a heparin drip. He had spiked a fever the ER reportedly and had been given a dose of Vanco, Zosyn, and blood cultures had been drawn. In the ER here he underwent a CTA of the chest which showed no acute process was negative for pulmonary embolism. He underwent a right foot x-ray which showed diffuse soft tissue swelling. His EKG did not show any acute ST segment changes. He was admitted to the selective care unit. He was seen by cardiology who agreed with non-ST segment elevated myocardial infarction and to continue aspirin, and heparin. They recommended echocardiogram with Doppler and beta belen. They suggest cardiac catheterization. Records were reviewed and his last echocardiogram in our system was 01/17/17 and he was found to have a decreased ejection fraction with an EF of less than 20%. Repeat echo this hospitalization showed EF of 20-25%. He underwent cath on 05/08 with a sent to the OM. His Blood pressure was well controlled and he was chest pain free. He did have some abdominal dscomfort and was started on a PPI whcih relevied his discomfort and this will be continued on discharge. Patient was determined stable for discharge home. He was started on lopressor, lipitor, plavix, asa, lisinopril, and protonix. Not a candidate for life vest at this time with hx of poor compliance. Patient seen and examined at bedside. Currently chest pain-free, no shortness of breath. Abdominal pain resolved. Discussed that he needs to take his medications and continue to follow-up. For physical exam see progress note same date. A total of 35 minutes of time were spent preparing this complex discharge summary . Pertinent Studies: echo- EF 20-25% CTA- No Pulmonary embolism Procedures: Cardiac cath with stent to the obtuse marginal Patient Condition at Discharge: Good Plan - Discharge Summary New Discharge Prescriptions: New Aspirin 81 mg PO DAILY #30 chew Atorvastatin [Lipitor] 80 mg PO HS #30 tab Clopidogrel [Plavix] 75 mg PO DAILY #30 tab Lisinopril [Zestril] 5 mg PO DAILY #30 tab Metoprolol Tartrate [Lopressor] 25 mg PO BID #60 tab Nicotine 14Mg/24Hr Patch [Habitrol] 1 patch TRANSDERM DAILY #30 patch Nitroglycerin Sl Tabs [Nitrostat] 0.4 mg SUBLINGUAL Q5M PRN #25 tab PRN Reason: Chest Pain Spironolactone [Aldactone] 25 mg PO DAILY #30 tab Pantoprazole [Protonix] 40 mg PO DAILY #30 tablet. Discharge Medication List Aspirin 81 mg PO DAILY #30 chew 05/09/18 [Rx] Atorvastatin [Lipitor] 80 mg PO HS #30 tab 05/09/18 [Rx] Clopidogrel [Plavix] 75 mg PO DAILY #30 tab 05/09/18 [Rx] Lisinopril [Zestril] 5 mg PO DAILY #30 tab 05/09/18 [Rx] Metoprolol Tartrate [Lopressor] 25 mg PO BID #60 tab 05/09/18 [Rx] Nicotine 14Mg/24Hr Patch [Habitrol] 1 patch TRANSDERM DAILY #30 patch 05/09/18 [ Rx] Nitroglycerin Sl Tabs [Nitrostat] 0.4 mg SUBLINGUAL Q5M PRN #25 tab 05/09/18 [Rx ] Pantoprazole [Protonix] 40 mg PO DAILY #30 tablet. 05/09/18 [Rx] Spironolactone [Aldactone] 25 mg PO DAILY #30 tab 05/09/18 [Rx] Follow up Appointment(s)/Referral(s): Karla Kessler MD [STAFF PHYSICIAN] - 1 Week None,Stated [Primary Care Provider] - 1-2 days Vaughn Barton MD [STAFF PHYSICIAN] - 1 Week Activity/Diet/Wound Care/Special Instructions: Heart Healthy diet, activity as tolerated, abstain from smoking Take all medications as prescribed. Discharge Disposition: HOME SELF-CARE
[2018-05-09 15:51] VITALS: BP 130/72; PULSE 70; TEMP 98.2
[2018-05-09] MEDS ORDERED: HEPARIN SODIUM,PORCINE 5,000 UNIT/ML 1 ML VIAL SQ SCH (16:00)
[2018-05-10] MEDS ORDERED: PANTOPRAZOLE 40 MG TABLET PO SCH (07:30)
== END 2018-05-09 17:07 | disposition home or self-care (01) | DRG 247 ==
LOC: EC 20:36 → 6ICU 23:34 → 6SEL 05-08 18:24
PROVIDERS: ADMIT Internal Medicine; ATTEND Internal Medicine
PROC: B2111ZZ Fluoroscopy of Multiple Coronary Arteries using Low Osmolar Contrast (ICD-10-PCS; 2018-05-08)
PROC: 027034Z Dilation of Coronary Artery, One Artery with Drug-eluting Intraluminal Device, Percutaneous Approach (ICD-10-PCS; principal; 2018-05-08 12:15)
PROC: 4A023N7 Measurement of Cardiac Sampling and Pressure, Left Heart, Percutaneous Approach (ICD-10-PCS; 2018-05-08 12:15)
DX: I21.4 Non-ST elevation (NSTEMI) myocardial infarction (principal); I25.5 Ischemic cardiomyopathy; E78.5 Hyperlipidemia, unspecified; I10 Essential (primary) hypertension; I25.10 Atherosclerotic heart disease of native coronary artery without angina pectoris; I25.82 Chronic total occlusion of coronary artery; F17.210 Nicotine dependence, cigarettes, uncomplicated; E66.9 Obesity, unspecified; I73.9 Peripheral vascular disease, unspecified; Z68.30 Body mass index [BMI] 30.0-30.9, adult; Z82.49 Family history of ischemic heart disease and other diseases of the circulatory system; Z83.3 Family history of diabetes mellitus; Z71.6 Tobacco abuse counseling; Z95.5 Presence of coronary angioplasty implant and graft; I25.2 Old myocardial infarction; Z86.73 Personal history of transient ischemic attack (TIA), and cerebral infarction without residual deficits; Z91.14 Patient's other noncompliance with medication regimen
CPT/HCPCS: 36415; 71046; 71275; 80048; 80053; 80061; 81003; 82550; 82553; 83605; 83735; 83880; 84439; 84443; 84484; 85025; 85379; 85610; 85652; 85730; 86140; 87086; 93005; 93306; 93458; 96365; 99285

== ENCOUNTER 2018-10-02 19:22 | Observation (INO) | payer MEDICARE, OTHER ==
--- NOTE | 2018-10-02 20:36 | ED ---
General Adult HPI - General Chief complaint: Shortness of Breath Stated complaint: Sob Source: patient Mode of arrival: ambulatory Limitations: no limitations - History of Present Illness Initial comments: Dictation was produced using [employer] dictation software. please excuse any grammatical, word or spelling errors. Chief Complaint: 63-year-old male past medical history coronary artery disease and CHF presents with difficulty breathing. History of Present Illness: She has been having ongoing symptoms for approximately 5 weeks. Patient states his symptoms are especially worse at night. He states that when he lies flat for bed he wakes up in the middle of night and has difficulty catching his breath. Patient was seen in outside emergency department for chief complaint of epigastric pain. CT was performed and patient was discharged. Patient reports that he has a history of congestive heart failure with ejection fraction last measured to be around 16%. Patient does not remember the last echocardiogram was. Patient denies any chest pressure at this time. Severe swelling to his bilateral lower extremities. Patient does eat a lot of salty foods is especially hot dogs. Patient is noncompliant with his medications. He does not take anything for CHF he reports. The ROS documented in this emergency department record has been reviewed and confirmed by me. Those systems with pertinent positive or negative responses have been documented in the HPI. All other systems are other negative and/or noncontributory. - Related Data Home Medications Medication Instructions Recorded Confirmed Bismuth Subsalicylate 262 mg PO BID 10/02/18 10/02/18 [Pepto-Bismol] Omeprazole 20 mg PO DAILY 10/02/18 10/02/18 Previous Rx's Medication Instructions Recorded Nitroglycerin Sl Tabs [Nitrostat] 0.4 mg SUBLINGUAL Q5M PRN #25 tab 05/09/18 Allergies Allergy/AdvReac Type Severity Reaction Status Date / Time hydrocodone [From Vicodin] AdvReac Hallucinati Verified 10/02/18 20:38 ons Review of Systems ROS Statement: Those systems with pertinent positive or pertinent negative responses have been documented in the HPI. ROS Other: All systems not noted in ROS Statement are negative. Past Medical History Past Medical History: CVA/TIA, Hyperlipidemia, Hypertension, Myocardial Infarction (HI), Skin Disorder Additional Past Medical History / Comment(s): PT IS POOR HISTORIAN-PT STATES HAS SOME BLOCKAGES IN [place]. LEGS & RT NECK- STATES FEET ARE ALWAYS ICE COLD- RT GREAT TOE HAS HOLE ,rt.foot wound. LOWER BACK PAIN ALSO. URINE FREQUENCY-UP 2- 3 X A NIGHT,. WAS ON 11 MEDICATIONS FRON IN [facility]- BUT STOPPED USING THEM. PT also states he had a blockage removed from his carotid artery and that the hospital told him he had two strokes, Last Myocardial Infarction Date:: 01/18/17 History of Any Multi-Drug Resistant Organisms: None Reported Past Surgical History: Tonsillectomy Additional Past Surgical History / Comment(s): ABDOMINAL SURGERY- REMOVED FISH BONE THAT HAD PUT HOLE IN STOMACH. REPAIR OF BLOCKAGES IN RT LEG 2011,stent to heart, Right great toe removal. Past Anesthesia/Blood Transfusion Reactions: No Reported Reaction Past Psychological History: No Psychological Hx Reported Smoking Status: Current every day smoker - Past Family History Mother Family Medical History: Cancer Father Family Medical History: Myocardial Infarction (HI) General Exam - General Exam Comments Initial Comments: PHYSICAL EXAM: General Impression: Alert and oriented x3, not in acute distress HEENT: Normocephalic atraumatic, extra-ocular movements intact, pupils equal and reactive to light bilaterally, mucous membranes moist. Cardiovascular: Heart regular rate and rhythm, S1&S2 audible, no murmurs, rubs or gallops Chest: Bilateral lung crackles Abdomen: Bowel sounds present, abdomen soft, non-tender, non-distended, no organomegaly Musculoskeletal: Pulses present and equal in all extremities, 2+ pitting edema bilateral lower extremities Motor: Power 5/5 bilaterally, no focal deficits noted Neurological: CN II-XII grossly intact, no focal motor or sensory deficits noted Skin: Intact with no visualized rashes Psych: Normal affect and mood Limitations: no limitations Course Vital Signs 10/02/18 10/02/18 19:31 19:40 Temperature 97.5 F L Pulse Rate 95 Respiratory 24 18 Rate Blood Pressure 191/110 O2 Sat by Pulse 96 Oximetry Medical Decision Making - Medical Decision Making ED course: 63-year-old male presents with clinical presentation consistent with acute decompensated heart failure. Vital signs upon arrival shows blood pressure 191/110.Laboratory evaluation obtained. CBC, coag panel, metabolic panel was obtained showing no acute processes. Chest x-ray does not show any findings of severe CHF. Any cardiac enzymes. Patient given sublingual nitroglycerin and Lasix for blood pressure control. Patient is sent out to oncoming physician (Dr. Tamayo) for follow-up of laboratory evaluation and reevaluation of patient symptoms. This point patient not severely dyspneic to the point he needs BiPAP. EKG interpretation: Ventricular rate 78,. Interval 174, care is 120, QTC 470. No TN prolongation, no QTC prolongation, no ST or T-wave changes noted. EKG compared to 05/06/2018 showing no changes. Overall, this EKG is unremarkable - Lab Data Result diagrams: 10/02/18 20:06 10/02/18 20:06 Lab Results 10/02/18 10/02/18 10/02/18 Range/Units 20:06 20:06 20:06 WBC 5.5 (3.8-10.6) k/uL RBC 5.02 (4.30-5.90) m/uL Hgb 15.1 (13.0-17.5) gm/dL Hct 45.9 (39.0-53.0) % MCV 91.6 (80.0-100.0) fL MCH 30.1 (25.0-35.0) pg MCHC 32.9 (31.0-37.0) g/dL RDW 14.8 (11.5-15.5) % Plt Count 143 L (150-450) k/uL Neutrophils % 64 % Lymphocytes % 25 % Monocytes % 7 % Eosinophils % 2 % Basophils % 0 % Neutrophils # 3.5 (1.3-7.7) k/uL Lymphocytes # 1.4 (1.0-4.8) k/uL Monocytes # 0.4 (0-1.0) k/uL Eosinophils # 0.1 (0-0.7) k/uL Basophils # 0.0 (0-0.2) k/uL PT 10.4 (9.0-12.0) sec INR 1.0 (<1.2) APTT 24.3 (22.0-30.0) sec Sodium 140 (137-145) mmol/L Potassium 5.1 (3.5-5.1) mmol/L Chloride 108 H (98-107) mmol/L Carbon Dioxide 25 (22-30) mmol/L Anion Gap 7 mmol/L BUN 21 H (9-20) mg/dL Creatinine 0.94 (0.66-1.25) mg/dL Est GFR (CKD-EPI)AfAm >90 (>60 ml/min/1.73 sqM) Est GFR (CKD-EPI)NonAf 85 (>60 ml/min/1.73 sqM) Glucose 116 H (74-99) mg/dL Calcium 9.2 (8.4-10.2) mg/dL Magnesium 1.9 (1.6-2.3) mg/dL Total Bilirubin 1.1 (0.2-1.3) mg/dL AST 33 (17-59) U/L ALT 27 (21-72) U/L Alkaline Phosphatase 72 (38-126) U/L Total Protein 6.9 (6.3-8.2) g/dL Albumin 3.9 (3.5-5.0) g/dL Disposition Referrals: Nonstaff,Physician [Primary Care Provider] - 1-2 days
[2018-10-02 20:56] LABS: Basophils % (A) 0 %; Eosinophils # (A) 0.1 k/uL (0-0.7); Eosinophils % (A) 2 %; HCT 45.9 % (39.0-53.0); HGB 15.1 gm/dL (13.0-17.5); Lymphocytes # (A) 1.4 k/uL (1.0-4.8); Lymphocytes % (A) 25 %; MCH 30.1 pg (25.0-35.0); MCHC 32.9 g/dL (31.0-37.0); MCV 91.6 fL (80.0-100.0); Mean Platelet Volume 7.9; Monocytes # (A) 0.4 k/uL (0-1.0); Monocytes % (A) 7 %; Neutrophils # (A) 3.5 k/uL (1.3-7.7); Neutrophils % (A) 64 %; Platelet Count 143 k/uL (150-450); RBC 5.02 m/uL (4.30-5.90); RDW 14.8 % (11.5-15.5); WBC 5.5 k/uL (3.8-10.6)
--- NOTE | 2018-10-02 21:03 | XR ---
EXAMINATION TYPE: XR chest 2V DATE OF EXAM: 10/02/2018 COMPARISON: 05/06/2018 HISTORY: Short of breath TECHNIQUE: Frontal and lateral views of the chest are obtained. FINDINGS: There is slight coarsening of the lung markings. There is no heart failure. There is no pl eural effusion. Heart appears slightly enlarged. There are chest leads. IMPRESSION: Mild cardiomegaly. No acute lung disease. No heart failure. No significant change compar ed to old exam.
[2018-10-02 21:06] LABS: Partial Thromboplastin Time 24.3 sec (22.0-30.0); Prothrombin Time 10.4 sec (9.0-12.0)
[2018-10-02 21:09] LABS: ALT 27 U/L (21-72); AST 33 U/L (17-59); Albumin 3.9 g/dL (3.5-5.0); Alkaline Phosphatase 72 U/L (38-126); Anion Gap 7 mmol/L; Blood Urea Nitrogen 21 mg/dL (9-20); Calcium 9.2 mg/dL (8.4-10.2); Carbon Dioxide 25 mmol/L (22-30); Chloride 108 mmol/L (98-107); Glucose 116 mg/dL (74-99); Magnesium 1.9 mg/dL (1.6-2.3); Sodium 140 mmol/L (137-145); Total Bilirubin 1.1 mg/dL (0.2-1.3); Total Protein 6.9 g/dL (6.3-8.2)
[2018-10-02 21:10] LABS: Potassium 5.1 mmol/L (3.5-5.1)
[2018-10-02] MEDS ORDERED: NITROGLYCERIN SL TABS 0.4 MG TAB SUBLINGUAL STA (21:12)
[2018-10-02] MEDS ORDERED: FUROSEMIDE 10 MG/ML 4 ML VIAL IV STA (21:12)
[2018-10-02 21:28] LABS: Creatine Kinase MB 2.2 ng/mL (0.0-2.4)
[2018-10-02 21:33] LABS: Troponin I 0.064 ng/mL (0.000-0.034)
[2018-10-02] MEDS ORDERED: NITROGLYCERIN OINT 1 INCH/GM PACKET TOPICAL STA (21:56)
[2018-10-02] MEDS: FUROSEMIDE 10 MG/ML 4 ML VIAL IV SCH (22:19)
[2018-10-03] MEDS ORDERED: METOPROLOL TARTRATE 12.5 MG TAB PO STA (00:03)
[2018-10-03 02:41] VITALS: BMI 32.0
[2018-10-03] MEDS: FUROSEMIDE 10 MG/ML 4 ML VIAL IV SCH ×2 (09:25→20:42)
[2018-10-03] MEDS ORDERED: NITROGLYCERIN SL TABS 0.4 MG TAB SUBLINGUAL PRN (10:27)
--- NOTE | 2018-10-03 10:41 | P.CRDCN ---
History of Present Illness History of present illness: This is Dr. Og dictating a consult on this patient The patient was interviewed and examined by me IMPRESSION / ASSESSMENT: 63-year-old male patient who presents with shortness of breath Known coronary artery disease Known ischemic cardio myopathy with reduced LV systolic function documented several months back Noncompliance with diet salt intake and medications. 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 Doing better now. Sitting at the edge of the bed but able to lie flat comfortably does have mild lower symmetry edema bilaterally No chest discomfort Noncompliance with diet and salt intake Noncompliance with follow-up of medical care Noncompliance with medications Not taking any of his medications for cardiomyopathy ROS: No fever chills or rigors, no cough, phlegm or expectoration, no nausea, vomiting or diarrhea, no hematuria, dysuria, no musculoskeletal complaints, no strokes or seizures, no skin lesions. EXAMINATION Afebrile 97.5F, blood pressure 156/98 mmHg, normal pulse rate S1-S2 normal no murmurs or gallops no rub Abdomen soft nontender Breath sounds are reduced bilaterally with occasional scattered crackles at the bases Lower extremity edema REVIEW OF LABS, ECG Normal white count normal hemoglobin potassium 5.1 BUN and creatinine are normal Borderline troponins nonrising trend times 20.064 and 0.068 Twelve-lead ECG shows sinus rhythm Q waves in the inferior leads and poor R wave progression with Q waves V2 to V6 Past Medical History Past Medical History: CVA/TIA, Hyperlipidemia, Hypertension, [place] Infarction ([place]), Skin Disorder Additional Past Medical History / Comment(s): PT IS POOR HISTORIAN-PT STATES HAS SOME BLOCKAGES IN [place]. LEGS & RT NECK- STATES FEET ARE ALWAYS ICE COLD- RT GREAT TOE HAS HOLE ,rt.foot wound. LOWER BACK PAIN ALSO. URINE FREQUENCY-UP 2- 3 X A NIGHT,. WAS ON 11 MEDICATIONS FRON IN [place]- BUT STOPPED USING THEM. PT also states he had a blockage removed from his carotid artery and that the hospital told him he had two strokes, Last Myocardial Infarction Date:: 2017 History of Any Multi-Drug Resistant Organisms: None Reported Past Surgical History: Tonsillectomy Additional Past Surgical History / Comment(s): ABDOMINAL SURGERY- REMOVED FISH BONE THAT HAD PUT HOLE IN STOMACH. REPAIR OF BLOCKAGES IN RT LEG 2011,stent to heart, Right great toe removal. Past Anesthesia/Blood Transfusion Reactions: No Reported Reaction Past Psychological History: No Psychological Hx Reported Additional Psychological History / Comment(s): and lives with a long- term lady friend. One adult son. Tobacco smoker till his myocardial infarction. Denies alcohol at this time it was a drinker 20 years ago. 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 No animal exposures Smoking Status: Former smoker Past Alcohol Use History: None Reported Additional Past Alcohol Use History / Comment(s): NO ALCOHOL IN 20 YRS- USE TO BE A PROBLEM Past Drug Use History: None Reported - Past Family History Mother Family Medical History: Cancer Father Family Medical History: Myocardial Infarction ([place]) Medications and Allergies Home Medications Medication Instructions Recorded Confirmed Type Nitroglycerin Sl Tabs [Nitrostat] 0.4 mg SUBLINGUAL Q5M PRN #25 tab 05/09/18 Rx Bismuth Subsalicylate 262 mg PO BID 10/02/18 10/02/18 History [Pepto-Bismol] Omeprazole 20 mg PO DAILY 10/02/18 10/02/18 History Allergies Allergy/AdvReac Type Severity Reaction Status Date / Time hydrocodone [From Vicodin] AdvReac Hallucinati Verified 10/02/18 20:38 ons Physical Exam Vitals: Vital Signs Temp Pulse Pulse Resp BP BP Pulse Ox 10/03/18 08:15 97.5 F L 68 18 156/98 100 10/03/18 04:00 98.8 F 69 18 156/85 92 L 10/03/18 01:20 98.4 F 18 148/81 97 10/03/18 00:53 98.3 F 76 18 145/76 99 10/02/18 23:00 97.6 F 72 18 166/116 98 10/02/18 22:19 75 16 175/116 10/02/18 21:31 76 16 172/114 97 10/02/18 19:40 18 10/02/18 19:31 97.5 F L 95 24 191/110 96 Intake and Output 10/02/18 10/03/18 10/03/18 22:59 06:59 14:59 Output Total 350 Balance -350 Output: Urine 350 Other: Voiding Method Urinal Weight 104.326 kg 110 kg Results 10/02/18 20:06 10/02/18 20:06 Cardiac Enzymes 10/02/18 10/02/18 10/03/18 Range/Units 20:06 20:06 08:06 AST 33 (17-59) U/L CK-MB (CK-2) 2.2 (0.0-2.4) ng/mL Troponin I 0.064 H* 0.068 H* (0.000-0.034) ng/mL Coagulation 10/02/18 Range/Units 20:06 PT 10.4 (9.0-12.0) sec APTT 24.3 (22.0-30.0) sec CBC 10/02/18 Range/Units 20:06 WBC 5.5 (3.8-10.6) k/uL RBC 5.02 (4.30-5.90) m/uL Hgb 15.1 (13.0-17.5) gm/dL Hct 45.9 (39.0-53.0) % Plt Count 143 L (150-450) k/uL Comprehensive Metabolic Panel 10/02/18 Range/Units 20:06 Sodium 140 (137-145) mmol/L Potassium 5.1 (3.5-5.1) mmol/L Chloride 108 H (98-107) mmol/L Carbon Dioxide 25 (22-30) mmol/L BUN 21 H (9-20) mg/dL Creatinine 0.94 (0.66-1.25) mg/dL Glucose 116 H (74-99) mg/dL Calcium 9.2 (8.4-10.2) mg/dL AST 33 (17-59) U/L ALT 27 (21-72) U/L Alkaline Phosphatase 72 (38-126) U/L Total Protein 6.9 (6.3-8.2) g/dL Albumin 3.9 (3.5-5.0) g/dL Current Medications Generic Name Dose Route Start Last Admin Trade Name Freq PRN Reason Stop Dose Admin Aspirin 81 mg 10/04/18 09:00 Aspirin PO DAILY LENA Atorvastatin Calcium 20 mg 10/03/18 21:00 Lipitor PO HS [facility] Carvedilol 3.125 mg 10/03/18 17:30 Coreg PO BID-W/MEALS [facility] Clopidogrel Bisulfate 75 mg 10/04/18 09:00 Plavix PO DAILY [facility] Furosemide 40 mg 10/02/18 22:00 10/03/18 09:25 Lasix IV 40 mg Q12H LENA Administration Nitroglycerin 0.4 mg 10/03/18 10:27 Nitrostat SUBLINGUAL Q5M PRN Chest Pain Pantoprazole Sodium 40 mg 10/04/18 07:30 Protonix PO AC-BRKFST [facility] Spironolactone 25 mg 10/04/18 09:00 Aldactone PO DAILY [facility] Intake and Output 10/02/18 10/03/18 10/03/18 22:59 06:59 14:59 Output Total 350 Balance -350 Output: Urine 350 Other: Voiding Method Urinal Weight 104.326 kg 110 kg 10/02/18 20:06 10/02/18 20:06
[2018-10-03] MEDS ORDERED: ACETAMINOPHEN TAB 325 MG TAB PO PRN (10:44)
--- NOTE | 2018-10-03 12:47 | P.HPIM ---
History of Present Illness 63-year-old male came in with compensative short of breath orthopnea for orthopnea no clear history of proximal nocturnal dyspnea. Patient does have history of coronary disease ejection fraction of 20% noncompliant with dietary and medication recommendations doesn't follow with the cardiology as an outpatient. Taking all his medications including aspirin and statin beta belen and Lasix. Chest x-ray did not show but does have elevated JVD pedal edema and elevated BNP patient although quit smoking. Had severe ischemic cardiomyopathy with LV ejection fraction 20% and recent cardiac catheterization and stenting in month of October. Review of Systems REVIEW OF SYSTEMS: CONSTITUTIONAL: No fever, no malaise, no fatigue. HEENT: No recent visual problems or hearing problems. Denied any sore throat. CARDIOVASCULAR: No chest pain, , no palpitations, no syncope. PULMONARY: no cough, no hemoptysis. GASTROINTESTINAL: No diarrhea, no nausea, no vomiting, no abdominal pain. NEUROLOGICAL: No headaches, no weakness, no numbness. HEMATOLOGICAL: Denies any bleeding or petechiae. GENITOURINARY: Denies any burning micturition, frequency, or urgency. MUSCULOSKELETAL/RHEUMATOLOGICAL: Denies any joint pain, swelling, or any muscle pain. ENDOCRINE: Denies any polyuria or polydipsia. The rest of the 14-point review of systems is negative. Past Medical History Past Medical History: CVA/TIA, Hyperlipidemia, Hypertension, Myocardial Infarction ([place]), Skin Disorder Additional Past Medical History / Comment(s): PT IS POOR HISTORIAN-PT STATES HAS SOME BLOCKAGES IN [place]. LEGS & RT NECK- STATES FEET ARE ALWAYS ICE COLD- RT GREAT TOE HAS HOLE ,rt.foot wound. LOWER BACK PAIN ALSO. URINE FREQUENCY-UP 2- 3 X A NIGHT,. WAS ON 11 MEDICATIONS FRON IN [place]- BUT STOPPED USING THEM. PT also states he had a blockage removed from his carotid artery and that the hospital told him he had two strokes, Last Myocardial Infarction Date:: 2017 History of Any Multi-Drug Resistant Organisms: None Reported Past Surgical History: Tonsillectomy Additional Past Surgical History / Comment(s): ABDOMINAL SURGERY- REMOVED FISH BONE THAT HAD PUT HOLE IN STOMACH. REPAIR OF BLOCKAGES IN RT LEG 2011,stent to heart, Right great toe removal. Past Anesthesia/Blood Transfusion Reactions: No Reported Reaction Past Psychological History: No Psychological Hx Reported Additional Psychological History / Comment(s): and lives with a long- term lady friend. One adult son. Tobacco smoker till his myocardial infarction. Denies alcohol at this time it was a drinker 20 years ago. 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 No animal exposures Smoking Status: Former smoker Past Alcohol Use History: None Reported Additional Past Alcohol Use History / Comment(s): NO ALCOHOL IN 20 YRS- USE TO BE A PROBLEM Past Drug Use History: None Reported - Past Family History Mother Family Medical History: Cancer Father Family Medical History: Myocardial Infarction ([place]) Medications and Allergies Home Medications Medication Instructions Recorded Confirmed Type Nitroglycerin Sl Tabs [Nitrostat] 0.4 mg SUBLINGUAL Q5M PRN #25 tab 05/09/18 Rx Bismuth Subsalicylate 262 mg PO BID 10/02/18 10/02/18 History [Pepto-Bismol] Omeprazole 20 mg PO DAILY 10/02/18 10/02/18 History Allergies Allergy/AdvReac Type Severity Reaction Status Date / Time hydrocodone [From Vicodin] AdvReac Hallucinati Verified 10/02/18 20:38 ons Physical Exam Vitals: Vital Signs Temp Pulse Pulse Resp BP BP Pulse Ox 10/03/18 12:20 66 18 150/92 93 L 10/03/18 08:15 97.5 F L 68 18 156/98 100 10/03/18 04:00 98.8 F 69 18 156/85 92 L 10/03/18 01:20 98.4 F 18 148/81 97 10/03/18 00:53 98.3 F 76 18 145/76 99 10/02/18 23:00 97.6 F 72 18 166/116 98 10/02/18 22:19 75 16 175/116 10/02/18 21:31 76 16 172/114 97 10/02/18 19:40 18 10/02/18 19:31 97.5 F L 95 24 191/110 96 Intake and Output 10/02/18 10/03/18 10/03/18 22:59 06:59 14:59 Output Total 350 Balance -350 Output: Urine 350 Other: Voiding Method Urinal Urinal Weight 104.326 kg 110 kg PHYSICAL EXAMINATION: GENERAL: The patient is alert and oriented x3, not in any acute distress. Well developed, well nourished. HEENT: Pupils are round and equally reacting to light. EOMI. No scleral icterus. No conjunctival pallor. Normocephalic, atraumatic. No pharyngeal erythema. No thyromegaly. CARDIOVASCULAR: S1 and S2 present. No murmurs, rubs, or gallops. He does have elevated JVD PULMONARY: Chest is clear to auscultation, no wheezing or crackles. ABDOMEN: Soft, nontender, nondistended, normoactive bowel sounds. No palpable organomegaly. MUSCULOSKELETAL: No joint swelling or deformity. EXTREMITIES: No cyanosis, clubbing, 2+ pitting pedal edema extending up to both knees NEUROLOGICAL: Gross neurological examination did not reveal any focal deficits. SKIN: No rashes. Results CBC & Chem 7: 10/02/18 20:06 10/02/18 20:06 Labs: Abnormal Lab Results - Last 24 Hours (Table) 10/02/18 10/02/18 10/02/18 Range/Units 20:06 20:06 20:06 Plt Count 143 L (150-450) k/uL Chloride 108 H (98-107) mmol/L BUN 21 H (9-20) mg/dL Glucose 116 H (74-99) mg/dL Troponin I 0.064 H* (0.000-0.034) ng/mL 10/03/18 Range/Units 08:06 Plt Count (150-450) k/uL Chloride (98-107) mmol/L BUN (9-20) mg/dL Glucose (74-99) mg/dL Troponin I 0.068 H* (0.000-0.034) ng/mL Thrombosis Risk Factor Assmnt - Choose All That Apply Each Factor Represents 1 point: Swollen legs (current) Other Risk Factors: Yes Each Risk Factor Represents 2 Points: Age 61-74 years Thrombosis Risk Factor Assessment Total Risk Factor Score: 3 Thrombosis Risk Factor Assessment Level: Moderate Risk Assessment and Plan Plan: -Congestive heart failure chronic systolic dysfunction, ischemic cardiomyopathy ejection fraction of 20% with acute exacerbation due to noncompliance with medications and diet recommendations: Extensive counseling regarding importance of medications was provided most of the medications that he needs a $3 prescriptions are free medications. Can you with IV Lasix monitor basic metabolic profile. Patient's potassium is 5.1 probably can be started on DEE inhibitor tomorrow if his potassium improves. -Coronary artery disease patient has minimally elevated troponin no significant new EKG changes, etiology evaluated the patient they do not believe patient will need IV heparin medical management at this time with aspirin not requiring Plavix at this time. -Hyperlipidemia -Hypertension -CVA TIA in the past Patient will not need pharmacological DVT or GI prophylaxis, early ambulation.
[2018-10-03] MEDS: CARVEDILOL 3.125 MG TAB PO SCH (17:51)
[2018-10-03] MEDS ORDERED: ATORVASTATIN 20 MG TAB PO SCH (21:00)
[2018-10-03] MEDS ORDERED: ASPIRIN 325 MG TAB PO SCH (21:58)
[2018-10-04] MEDS: CARVEDILOL 3.125 MG TAB PO SCH (06:23)
[2018-10-04 06:37] VITALS: RESP 16
[2018-10-04 07:12] LABS: HCT 50.5 % (39.0-53.0); HGB 16.9 gm/dL (13.0-17.5); MCH 30.4 pg (25.0-35.0); MCHC 33.5 g/dL (31.0-37.0); MCV 90.8 fL (80.0-100.0); Mean Platelet Volume 7.7; Platelet Count 162 k/uL (150-450); RBC 5.57 m/uL (4.30-5.90); RDW 14.8 % (11.5-15.5); WBC 6.4 k/uL (3.8-10.6)
[2018-10-04 07:28] LABS: Calcium 9.5 mg/dL (8.4-10.2); Potassium 4.2 mmol/L (3.5-5.1)
[2018-10-04] MEDS ORDERED: PANTOPRAZOLE 40 MG TABLET PO SCH (07:30)
[2018-10-04] MEDS: FUROSEMIDE 10 MG/ML 4 ML VIAL IV SCH (08:44)
[2018-10-04] MEDS ORDERED: ASPIRIN 81 MG PO SCH (09:00)
[2018-10-04] MEDS ORDERED: SPIRONOLACTONE 25 MG TAB PO SCH (09:00)
[2018-10-04] MEDS ORDERED: CLOPIDOGREL 75 MG TAB PO SCH (09:00)
--- NOTE | 2018-10-04 10:37 | P.DS ---
Providers Date of admission: 10/02/18 21:57 Attending physician: Antoinette Aguilar Consults: 10/02/18 21:57 Consult Physician Routine Consulting Provider: [facility] Consult Reason/Comments: CHF, elevated trop Do you want consulting provider notified?: Yes, Notify in am Primary care physician: Physician Nonstaff Hospital Course: 63-year-old male came in with compensative short of breath orthopnea for orthopnea no clear history of proximal nocturnal dyspnea. Patient does have history of coronary disease ejection fraction of 20% noncompliant with dietary and medication recommendations doesn't follow with the cardiology as an outpatient. Taking all his medications including aspirin and statin beta belen and Lasix. Chest x-ray did not show but does have elevated JVD pedal edema and elevated BNP patient although quit smoking. Had severe ischemic cardiomyopathy with LV ejection fraction 20% and recent cardiac catheterization and stenting in month of October. 10/04/2018 Patient is a euvolemic at this time patient shortness of breath completely resolved patient will be discharged today and patient's prescriptions are provided most of them are for gall prescriptions her previous prescriptions. PHYSICAL EXAMINATION: GENERAL: The patient is alert and oriented x3, not in any acute distress. Well developed, well nourished. HEENT: Pupils are round and equally reacting to light. EOMI. No scleral icterus. No conjunctival pallor. Normocephalic, atraumatic. No pharyngeal erythema. No thyromegaly. CARDIOVASCULAR: S1 and S2 present. No murmurs, rubs, or gallops. PULMONARY: Chest is clear to auscultation, no wheezing or crackles. ABDOMEN: Soft, nontender, nondistended, normoactive bowel sounds. No palpable organomegaly. MUSCULOSKELETAL: No joint swelling or deformity. EXTREMITIES: No cyanosis, clubbing, or pedal edema. NEUROLOGICAL: Gross neurological examination did not reveal any focal deficits. SKIN: No rashes. Assessment and Plan Plan: -Congestive heart failure chronic systolic dysfunction, ischemic cardiomyopathy ejection fraction of 20% with acute exacerbation due to noncompliance with medications and diet recommendations: Extensive counseling regarding importance of medications -Coronary artery disease patient has minimally elevated troponin no significant new EKG changes, - -Hyperlipidemia -Hypertension -CVA TIA in the past Plan - Discharge Summary New Discharge Prescriptions: New Aspirin 81 mg PO DAILY #30 chew Atorvastatin [Lipitor] 20 mg PO HS #30 tab Carvedilol [Coreg] 3.125 mg PO BID-W/MEALS #60 tab Furosemide [Lasix] 40 mg PO BID #60 tablet Spironolactone [Aldactone] 25 mg PO DAILY #30 tab Isosorbide Mononitrate ER [Imdur] 30 mg PO DAILY #30 tab Losartan [Cozaar] 25 mg PO DAILY #30 tab Nitroglycerin 0.4 mg SL DAILY PRN #30 tab.subl PRN Reason: Chest Pain Continue Nitroglycerin Sl Tabs [Nitrostat] 0.4 mg SUBLINGUAL Q5M PRN #25 tab PRN Reason: Chest Pain Omeprazole 20 mg PO DAILY Bismuth Subsalicylate [Pepto-Bismol] 262 mg PO BID Discharge Medication List Nitroglycerin Sl Tabs [Nitrostat] 0.4 mg SUBLINGUAL Q5M PRN #25 tab 05/09/18 [Rx ] Bismuth Subsalicylate [Pepto-Bismol] 262 mg PO BID 10/02/18 [History] Omeprazole 20 mg PO DAILY 10/02/18 [History] Aspirin 81 mg PO DAILY #30 chew 10/04/18 [Rx] Atorvastatin [Lipitor] 20 mg PO HS #30 tab 10/04/18 [Rx] Carvedilol [Coreg] 3.125 mg PO BID-W/MEALS #60 tab 10/04/18 [Rx] Furosemide [Lasix] 40 mg PO BID #60 tablet 10/04/18 [Rx] Isosorbide Mononitrate ER [Imdur] 30 mg PO DAILY #30 tab 10/04/18 [Rx] Losartan [Cozaar] 25 mg PO DAILY #30 tab 10/04/18 [Rx] Nitroglycerin 0.4 mg SL DAILY PRN #30 tab.subl 10/04/18 [Rx] Spironolactone [Aldactone] 25 mg PO DAILY #30 tab 10/04/18 [Rx] Follow up Appointment(s)/Referral(s): Karla Kessler MD [STAFF PHYSICIAN] - 1 Week (Office will call with appoitment.) Rene Germain MD [REFERRING] - 1 Week Nonstaff,Physician [Primary Care Provider] - 3 Days Discharge Disposition: HOME SELF-CARE
[2018-10-04 10:51] VITALS: BP 130/77; PULSE 64; TEMP 97.7
== END 2018-10-04 13:55 | disposition home or self-care (01) ==
LOC: EC 19:22 → OBSVTOIN 21:57 → INTOOBSV 21:57 → 3SCARD 21:57
PROVIDERS: ADMIT Internal Medicine; ATTEND Internal Medicine
DX: I11.0 Hypertensive heart disease with heart failure (principal); I50.22 Chronic systolic (congestive) heart failure; I25.10 Atherosclerotic heart disease of native coronary artery without angina pectoris; Z91.11 Patient's noncompliance with dietary regimen; Z91.14 Patient's other noncompliance with medication regimen; I25.5 Ischemic cardiomyopathy; E78.5 Hyperlipidemia, unspecified; R35.0 Frequency of micturition; M54.5 Low back pain; L98.9 Disorder of the skin and subcutaneous tissue, unspecified; R77.8 Other specified abnormalities of plasma proteins; Z79.899 Other long term (current) drug therapy; Z88.5 Allergy status to narcotic agent; Z86.73 Personal history of transient ischemic attack (TIA), and cerebral infarction without residual deficits; Z87.891 Personal history of nicotine dependence; I25.2 Old myocardial infarction; Z95.5 Presence of coronary angioplasty implant and graft; Z82.49 Family history of ischemic heart disease and other diseases of the circulatory system; Z80.9 Family history of malignant neoplasm, unspecified
CPT/HCPCS: 96376 ×2; 96374; 99285; 36415; 93005; 83880; 80053; 80048; 82550; 82553; 83735; 84484 ×2; 85025; 85027; 85610; 85730; 71046; G0378 ×4; J1940 ×3